=== PATIENT | female | born 1950 | race Caucasian/White ===

== ENCOUNTER 2017-09-06 03:07 | Inpatient (IN) ==
[2017-09-06] MEDS ORDERED: methylPREDNISolone 125 MG/2 ML VIAL IVP ONE (03:16)
[2017-09-06] MEDS ORDERED: Ipratropium/Albuterol Neb 3 ML IH ONE (03:16)
--- NOTE | 2017-09-06 03:30 | Emergency Department Note ---
Disposition Clinical Impression: COPD exacerbation Disposition: Admitted As Inpatient Condition: Good SOB HPI - General Chief Complaint: ED Shortness of Breath/Dyspnea Stated Complaint: KARISHMA Time Seen by Provider: 09/06/17 03:16 Source: patient, EMS Mode of arrival: EMS Limitations: no limitations Nursing Notes Reviewed: Yes Vital Signs Reviewed: Yes - History of Present Illness 67-year-old female history of oxygen dependent COPD, history of PE with filter placement who presents to the ER with a chief complaint of shortness of breath. Patient states that yesterday evening she was having increased urinary frequency and diarrhea. She states during the night she started developing shortness of breath. Reports clear sputum production. No fevers. No chest pain. States that she gets pneumonia easily. She did have an increased oxygen requirement from 2.5 -3 L. She reports that she was 88% there. Squad arrived gave her a breathing treatment in route and she was 99%. She denies a prior history of intubation. No other complaints. Pt Subjective Complaint: shortness of breath, cough Onset (ago): hour(s) Context: recent illness Severity: moderate Consistency/Duration: constant Improves with: bronchodilators Worsens with: nothing Known history of: COPD Associated symptoms: Reports: cough, sputum production. Denies: chest pain, fever Treatment prior to arrival: oxygen, bronchodilator Cough present: Yes Cough Description: Involuntary Cough Frequency: Intermittent Sputum production: Yes Sputum Amount: Small Sputum Color: Clear - Related Data Home oxygen amount: 2 liters Home Medications Medication Instructions Recorded Confirmed Albuterol Sulfate [Albuterol 2 puff IH Q4HR PRN 07/23/15 08/05/16 Inhaler] Docusate [Colace] 200 mg PO BID 07/23/15 08/05/16 GuaiFENesin ER [Mucinex] 1,200 mg PO BID 07/23/15 08/05/16 Metoprolol [Lopressor] 12.5 mg PO BID 07/23/15 08/05/16 diazePAM [Valium] 5 mg PO BID 07/23/15 08/05/16 Beclomethasone Diprop 80mcg [QVAR 2 puff IH BID PRN 12/07/15 08/05/16 80 mcg] FentaNYL PATCH [Duragesic] 75 mcg TD Q72H 12/07/15 08/05/16 Ipratropium/Albuterol Neb [Duoneb] 3 ml IH Q6HR PRN 12/07/15 08/05/16 Ondansetron HCl [Zofran] 4 mg PO TID 12/07/15 08/05/16 Oxygen 2 - 3 l NS AD MDD 24 hours a day 08/05/16 08/05/16 Previous Rx's Medication Instructions Recorded Esomeprazole Magnesium [Nexium] 40 mg PO BID #60 suspdr.pkt 12/14/15 levoFLOXacin [Levaquin] 750 mg PO DAILY #10 tablet 08/07/16 predniSONE [PredniSONE] 60 mg PO AD 12 Days tablet 08/07/16 Allergies Allergy/AdvReac Type Severity Reaction Status Date / Time aspirin Allergy Hives Verified 08/05/16 16:10 cefpodoxime [From Vantin] Allergy Hives Verified 08/05/16 16:10 Cephalosporins Allergy Hives Verified 08/05/16 16:10 ciprofloxacin [From Cipro] Allergy Hives Verified 08/05/16 16:10 hydrocodone Allergy Hives Verified 08/05/16 16:10 moxifloxacin Allergy Hives Verified 08/05/16 16:10 propoxyphene Allergy Hives Verified 08/05/16 16:10 sodium bicarbonate Allergy Hives Verified 08/05/16 16:10 Sulfa (Sulfonamide Allergy Hives Verified 08/05/16 16:10 Antibiotics) tramadol Allergy Hives Verified 08/05/16 16:10 beta-lactam Allergy Hives Uncoded 08/05/16 16:11 cetpodoxime Allergy Hives Uncoded 08/05/16 16:11 multivitamins Allergy Hives Uncoded 08/05/16 16:11 All systems ED: reviewed and negative except as stated. Constitutional: Denies: fever, chills Cardiovascular: Denies: chest pain Respiratory: Reports: cough, dyspnea, sputum production Gastrointestinal: Reports: diarrhea. Denies: abdominal pain, nausea, vomiting Genitourinary: Denies: dysuria, hematuria Past Medical History - Past Medical History Attestation: Yes The following information was validated with the patient. Source: patient Medical history: Reports: asthma, CHF, COPD, coronary artery disease, GERD, glaucoma, other Surgical history: Reports: appendectomy, other Psychiatric history: Reports: anxiety, PTSD - Social History Smoking Status: Former smoker Smokeless Tobacco Status: No Alcohol use: Reports: none Drug use: Reports: none Physical Exam - General Limitations: no limitations General appearance: alert, anxious - Head Head exam: atraumatic, normocephalic, normal inspection - Eye Eye exam: Present: normal appearance, EOMI - ENT ENT exam: normal exam - Neck Neck exam: Present: normal inspection, full ROM - Chest Chest inspection: Present: normal inspection, symmetric chest wall rise - Respiratory Respiratory exam: Present: wheezes (Diffuse end expiratory wheezing on exam.), prolonged expiratory phase. Absent: respiratory distress, stridor - Cardiovascular Cardiovascular exam: Present: normal rhythm, tachycardia, normal heart sounds - Abdominal Exam Abdominal exam: Present: soft, Non-Tender. Absent: tenderness, distention, rigidity - Extremities Exam Extremities exam: Present: normal inspection, full ROM - Expanded Upper Extremity Exam Shoulder exam: Present: normal inspection, full ROM Arm exam: Present: normal inspection, full ROM Elbow exam: Present: normal inspection, full ROM Forearm/Wrist exam: Present: normal inspection, full ROM Hand exam: Present: normal inspection, full ROM Vascular exam: Normal: radial pulse - Expanded Lower Extremity Exam Hip/Pelvis exam: Present: normal inspection, full ROM Upper leg exam: Present: normal inspection, full ROM Knee exam: Present: normal inspection, full ROM Lower leg exam: Present: normal inspection, full ROM Ankle exam: Present: normal inspection, full ROM Foot/toe exam: Present: normal inspection, full ROM Neurovascular/Tendon exam: Absent: motor deficit, sensory deficit - Neurological Exam Neurological exam: Present: alert, other (GCS 15. Nonfocal neurologic exam.) - Psychiatric Psychiatric exam: Present: anxious - Skin Skin exam: Present: warm, dry, intact, normal color Course Course Narrative: Patient seen and examined. We will obtain an EKG, chest x-ray as well as labs including troponin. We will give her 2 additional DuoNeb treatments as well as Solu-Medrol. - Reevaluation(s) Reevaluation #1: Still wheezing after DuoNeb treatments. She is 94% currently. Patient agreeable with being admitted. Vital Signs Temperature 99.4 F 09/06/17 03:08 Pulse Rate 118 09/06/17 03:08 Respiratory Rate 18 09/06/17 03:08 Blood Pressure 148/88 09/06/17 03:08 O2 Sat by Pulse Oximetry 99 09/06/17 03:08 Temperature 99.4 F 09/06/17 03:08 Pulse Rate 118 09/06/17 03:08 Respiratory Rate 18 09/06/17 03:28 Blood Pressure 148/88 09/06/17 03:08 O2 Sat by Pulse Oximetry 94 09/06/17 03:28 Oxygen Delivery Oxygen Delivery Aerosol Mask Shortness of Breath/Dyspnea - MDM Narrative Medical decision making narrative: 67-year-old female history of oxygen-dependent COPD presents to the ER due to shortness of breath and cough. Started last night. History of PE but has a filter placed. She was 88% on her usual O2 requirement. EKG here demonstrates sinus tachycardia. Chest x-ray shows emphysematous changes. Patient given DuoNeb treatments as well as IV Solu-Medrol. Patient admitted to the hospitalist service for COPD exacerbation. - Lab Data Lab results reviewed: Yes I reviewed the patient's lab results. Result diagrams: 09/06/17 03:30 09/06/17 03:30 Lab Results 09/06/17 09/06/17 09/06/17 Range/Units 03:30 03:30 03:30 WBC 8.7 (4.3-11.1) K/mcL RBC 4.05 (3.82-4.97) M/mcL Hgb 13.0 (11.5-15.4) g/dL Hct 40.1 (35.3-44.9) % MCV 99.0 (83.0-100.0) fL MCH 32.1 (28.0-33.3) pg MCHC 32.4 (31.6-35.5) g/dL RDW 12.7 (11.5-14.5) % Plt Count 299 (140-400) K/mcL MPV 10.7 (9.4-12.4) fL Immature Gran % 0.3 (0-4) % Seg Neutrophils % 68.0 % Lymphocytes % 22.0 % Monocytes % 7.9 % Eosinophils % 1.3 % Basophils % 0.5 % Neutrophils # 5.9 (1.6-8.9) K/mcL Lymphocytes # 1.9 (0.6-4.6) K/mcL Monocytes # 0.7 (0.0-1.3) K/mcL Eosinophils # 0.1 (0.0-0.6) K/mcL Basophils # 0.0 (0.0-0.2) K/mcL Sodium 142 (136-145) mEq/L Potassium 3.9 (3.5-4.5) mEq/L Chloride 101 (98-109) mEq/L Carbon Dioxide 31 H (19-29) mEq/L BUN 11 (7-20) mg/dL Creatinine 0.69 (0.57-1.11) mg/dL Est GFR ( Amer) > 60 (> 60) Est GFR (Non-Af Amer) > 60 (> 60) BUN/Creatinine Ratio 16 (6-26) Glucose 122 H (70-99) mg/dL Calculated Osmolality 295 (280-300) Calcium 9.9 (8.6-10.8) mg/dL Troponin I 0.00 (0-0.03) ng/mL B-Natriuretic Peptide (0-100) pg/mL 09/06/17 Range/Units 03:30 WBC (4.3-11.1) K/mcL RBC (3.82-4.97) M/mcL Hgb (11.5-15.4) g/dL Hct (35.3-44.9) % MCV (83.0-100.0) fL MCH (28.0-33.3) pg MCHC (31.6-35.5) g/dL RDW (11.5-14.5) % Plt Count (140-400) K/mcL MPV (9.4-12.4) fL Immature Gran % (0-4) % Seg Neutrophils % % Lymphocytes % % Monocytes % % Eosinophils % % Basophils % % Neutrophils # (1.6-8.9) K/mcL Lymphocytes # (0.6-4.6) K/mcL Monocytes # (0.0-1.3) K/mcL Eosinophils # (0.0-0.6) K/mcL Basophils # (0.0-0.2) K/mcL Sodium (136-145) mEq/L Potassium (3.5-4.5) mEq/L Chloride (98-109) mEq/L Carbon Dioxide (19-29) mEq/L BUN (7-20) mg/dL Creatinine (0.57-1.11) mg/dL Est GFR ( Amer) (> 60) Est GFR (Non-Af Amer) (> 60) BUN/Creatinine Ratio (6-26) Glucose (70-99) mg/dL Calculated Osmolality (280-300) Calcium (8.6-10.8) mg/dL Troponin I (0-0.03) ng/mL B-Natriuretic Peptide 69 (0-100) pg/mL - Radiology Data Radiology results reviewed: Yes I reviewed the patient's radiology results. Chest X-Ray 09/06/17 03:16 IMPRESSION: 1. Emphysema. No superimposed acute pulmonary finding to account for patient's shortness of breath. D/ / Fili Bustos MD / Fili Bustos MD Interpreting Provider: Fili Bustos MD - EKG Data EKG attestation: Yes I reviewed and interpreted this EKG. EKG results narrative: EKG demonstrated sinus tachycardia with a rate of 122. Normal axis. Normal intervals. Motion artifact in all leads. Normal R-wave progression. No gross ST elevations or depressions. No acute ischemic findings. No significant changes from previous EKG dated 08/05/16. S.B.AMilli. - S.Jose.AFilemon Situation: Demographics, MOA Background: Presenting Complaint, Relevant PMH, Meds, & Allergies Assessment: Vital Signs, Course and respsone to treatment, Exam Concerns, Patient/Family Expectation, Pertinant Lab Results, Outstanding Labs Recommendation: Barrier(s) to disposition, Recommendation based on pending studies, treatments, or consults S.B.A.RAcosta Report Given to: Dr. Cristian Jefferson Repor Time: 04:35 Attestation Statement - Attestation Attestation: I, Howard Monroe MD, personally evaluated this patient and discussed their management with the resident physician. I reviewed the resident's note and agree with the documented findings, medical decision making, and plan of care. 67-year-old female presents to the emergency department by EMS with a complaint of increased shortness of breath that started about 6 PM this evening and got progressively worse. She took a nebulizer treatment at home around 10 PM with no improvement. Patient has a history of COPD and uses oxygen continuously at home by nasal cannula. There has been some cough which is mostly nonproductive but occasional clear sputum. No chest pain. No fever. On examination patient is a well-developed thin elderly female in no acute distress. She is alert and oriented 3. There is no cyanosis or diaphoresis. Breath sounds are decreased bilaterally with diffuse bilateral expiratory wheezes. Heart tachycardic and regular. Abdomen soft and nontender with normal bowel sounds. No pedal edema. EKG shows sinus tachycardia. Chest x-ray shows COPD with no acute abnormality. Labs reviewed. The hospitalist, Dr. Foster, was consulted and accepted admission of the patient.
[2017-09-06 03:38] LABS: Basophils % 0.5 %; Eosinophils # 0.1 K/mcL (0.0-0.6); Eosinophils % 1.3 %; Hematocrit 40.1 % (35.3-44.9); Immature Granulocytes % 0.3 % (0-4); Lymphocytes # 1.9 K/mcL (0.6-4.6); Mean Corpuscular HGB Conc 32.4 g/dL (31.6-35.5); Mean Corpuscular Hemoglobin 32.1 pg (28.0-33.3); Mean Platelet Volume 10.7 fL (9.4-12.4); Monocytes # 0.7 K/mcL (0.0-1.3); Monocytes % 7.9 %; Neutrophils # 5.9 K/mcL (1.6-8.9); Platelet Count 299 K/mcL (140-400); Red Blood Count 4.05 M/mcL (3.82-4.97); Red Cell Distribution Width 12.7 % (11.5-14.5)
[2017-09-06 03:51] LABS: BUN/Creatinine Ratio 16 (6-26); Blood Urea Nitrogen 11 mg/dL (7-20); Calcium 9.9 mg/dL (8.6-10.8); Carbon Dioxide 31 mEq/L (19-29); Chloride 101 mEq/L (98-109); Glucose 122 mg/dL (70-99); Osmolality,Calculated 295 (280-300); Potassium 3.9 mEq/L (3.5-4.5); Sodium 142 mEq/L (136-145); eGFR For African Americans > 60 (> 60); eGFR For Non-African Americans > 60 (> 60)
[2017-09-06] MEDS ORDERED: Naloxone 0.4 MG/ML INJ IVP PRN (09:14)
--- NOTE | 2017-09-06 09:14 | Internal Med History&Physical ---
Date of Encounter: 09/07/17 Time of Encounter: 09:13 Assessment and Plan (1) COPD exacerbation Current visit: Yes Status: Acute 67/female Known to have a COPD. She is on home oxygen 2 L/m. Noted that in last 1 week has cough is getting worse along with the worsening oxygen demand. Yesterday patient had difficulty in transfer from bed to bathroom. Her oxygen saturation was in low 80s. X-ray chest/EKG was reviewed by myself. Plan: -Admitted as a inpatient. Reason for inpatient hospitalization: This patient needs intravenous antibiotics , steroids and persistent/continuous monitoring of her respiratory status. -Blood culture 2. -Intravenous methylprednisolone 40 mg every 8 hours. -Intravenous levofloxacin. Even though patient has allergy to ciprofloxacin, it is hives. Patient will get benefit from levofloxacin. -Bronchodilators, every 4 hours/when necessary. -We will resume home medications. (2) Cough Current visit: No Status: Acute Patient has a persistent cough and it is likely secondary to COPD exacerbation. We will treat the COPD exacerbation very actively/aggressively. We will continue conservative management for cough. (3) HTN (hypertension) Current visit: No Status: Chronic Hypertension is stable. We will continue home medications. At this point we will continue to monitor hypertension very closely. Qualifiers: Hypertension type: essential hypertension Qualified Code(s): I10 - Essential (primary) hypertension (4) CAD (coronary artery disease) Current visit: No Status: Chronic Patient has a stable coronary artery disease. Patient denies any chest pain at this point. Qualifiers: Coronary Disease-Associated Artery/Lesion type: [place] artery [place] vs. transplanted heart: [place] heart Associated angina: without angina Qualified Code(s): I25.10 - Atherosclerotic heart disease of [place] coronary artery without angina pectoris (5) DVT prophylaxis Current visit: No Status: Acute heparin Medical decision making: This patient has a moderate to severe risk of worsening in spite of being on appropriate antibiotics due to her underlying nature of the complex multiple comorbidities. Internal Medicine - H&P: HPI Chief complaint: SOB Admitted From: Emergency Dept History of present illness: Brief past medical history:CHF, COPD, coronary artery disease, GERD, glaucoma. History of present illness: Patient has worsening shortness of breath for the past 2-3 days. Noted that her cough was getting worse along with her shortness of breath. Patient started having mucopurulent expectoration along with worsening cough upon minimal exertion.Patient has a home oxygen for 2 L. Patient noted that on minimal exertion her oxygen saturation was dropping to low 80s. Even from bed to bathroom to transfer/transport was difficult. Patient herself tried multiple times to increase her oxygen from 2 L/m to 3-4 L/ m but in spite of that her saturation was in mid 80s or low 80s. Last night she was having episode of short of breath and low oxygen saturation and that was the reason she called squad. Course in the emergency room: Patient was evaluated in the emergency room. X- ray chest was done. IV steroids were given. Reason for hospitalization: This COPD exacerbation which requires intravenous antibiotics/steroids. Patient needs to be qualified for worsening oxygen demand. Family history: Noncontributory Past Med Surg Social Fam HX - Past Medical History Medical history: asthma, CHF, COPD, coronary artery disease, GERD, glaucoma, other Psychiatric history: anxiety, PTSD - Past Surgical History Surgical History: appendectomy - Social History Smoking Status: Former smoker Smokeless Tobacco Status: No Alcohol use: none Drug use: none - Family History Father Living Status: Hx Family Cardiac Disorders: Yes Hx Family Respiratory Disorders: Yes (lung cancer) Hx Family Cancer: Yes Hx Family GI Disorders: No Hx Family Endocrine Disorder: No Hx Family Neuromuscular Disorders: No Hx Family Neurologic Disorders: No Hx Family HEENT Disorders: No Hx Family Autoimmune Disorders: No Mother Living Status: Hx Family Cardiac Disorders: No Hx Family Respiratory Disorders: Yes (COPD) Hx Family Cancer: No Hx Family GI Disorders: No Hx Family Endocrine Disorder: Yes Hx Family Neuromuscular Disorders: No Hx Family Neurologic Disorders: No Hx Family HEENT Disorders: No Hx Family Autoimmune Disorders: No Sister Living Status: Hx Family Cardiac Disorders: Yes Hx Family Respiratory Disorders: Yes Hx Family Cancer: Yes Hx Family GI Disorders: No Hx Family Endocrine Disorder: No Hx Family Neuromuscular Disorders: No Hx Family Neurologic Disorders: No Hx Family HEENT Disorders: No Hx Family Autoimmune Disorders: No Brother Living Status: Hx Family Cardiac Disorders: Yes Hx Family Respiratory Disorders: No Hx Family Cancer: Yes Hx Family GI Disorders: No Hx Family Endocrine Disorder: No Hx Family Neuromuscular Disorders: No Hx Family Neurologic Disorders: No Hx Family HEENT Disorders: No Hx Family Autoimmune Disorders: No Internal Medicine - H&P: Meds Albuterol Sulfate [Albuterol Inhaler] 2 puff IH Q4HR PRN 07/23/15 [History] Docusate [Colace] 100 mg PO TID 07/23/15 [History] diazePAM [Valium] 2.5 mg PO DAILY 07/23/15 [History] Beclomethasone Diprop 80mcg [QVAR 80 mcg] 2 puff IH BID PRN 12/07/15 [History] FentaNYL PATCH [Duragesic] 75 mcg TD Q72H 12/07/15 [History] Ipratropium/Albuterol Neb [Duoneb] 3 ml IH Q4H PRN 12/07/15 [History] Oxygen 2 - 3 l NS AD MDD 24 hours a day 08/05/16 [History] Omeprazole [PriLOSEC] 40 mg PO DAILY 09/06/17 [History] 3 Allergy/AdvReac Type Severity Reaction Status Date / Time aspirin Allergy Hives Verified 08/05/16 16:10 cefpodoxime [From Vantin] Allergy Hives Verified 08/05/16 16:10 Cephalosporins Allergy Hives Verified 08/05/16 16:10 ciprofloxacin [From Cipro] Allergy Hives Verified 08/05/16 16:10 hydrocodone Allergy Hives Verified 08/05/16 16:10 moxifloxacin Allergy Hives Verified 08/05/16 16:10 propoxyphene Allergy Hives Verified 08/05/16 16:10 sodium bicarbonate Allergy Hives Verified 08/05/16 16:10 Sulfa (Sulfonamide Allergy Hives Verified 08/05/16 16:10 Antibiotics) tramadol Allergy Hives Verified 08/05/16 16:10 beta-lactam Allergy Hives Uncoded 08/05/16 16:11 cetpodoxime Allergy Hives Uncoded 08/05/16 16:11 multivitamins Allergy Hives Uncoded 08/05/16 16:11 All Systems PM: A 10-system review of systems was performed and is negative for pertinent findings except as documented above in the HPI. - Constitutional Constitutional: no chills, no fever(s), no night sweats - EENT Eyes: no change in vision, no discharge, no pain, no photophobia Ears: no ear discharge, no ear pain, no tinnitus Nose, mouth and throat: no dysphagia, no nasal discharge, no neck pain, no sore throat - Cardiovascular Cardiovascular ROS IM: no chest pain, no diaphoresis, no dyspnea, no lightheadedness, no palpitations, no syncope - Respiratory Respiratory: cough, dyspnea, wheezing, change in phlegm color, pain with cough, no excessive phlegm production - Gastrointestinal Gastrointestinal: no abdominal pain, no diarrhea, no hematemesis, no hematochezia, no melena, no nausea, no vomiting - Genitourinary Genitourinary: no change in urinary stream, no dysuria, no flank pain, no hematuria - Musculoskeletal Musculoskeletal ROS IM: no numbness, no tingling - Integumentary Integumentary IM: no rash, no unusual bruising - Neurological Neurological ROS: no confusion, no convulsions, no focal weakness, no numbness, no tingling, no tremor(s) - Hematologic/Lymphatic Hematologic/Lymphatic: no easy bruising - Constitutional Vitals: Temp Pulse Resp BP Pulse Ox 98.1 F 116 19 134/88 95 09/06/17 06:04 09/06/17 06:04 09/06/17 06:04 09/06/17 06:04 09/06/17 06:04 General appearance: Present: A&O X 3, pleasant, no acute distress, answers questions appropriately - Head Head exam: Present: atraumatic, normocephalic - Eye Eye exam: Present: PERRL, conjuntiva pink, sclera anicteric Pupils: Present: PERRL - Neck Neck exam general surgery: Present: supple, trachea midline. Absent: lymphadenopathy - Respiratory Respiratory exam: Present: CTAB. Absent: accessory muscle use, rales, rhonchi, wheezes - Cardiovascular Cardiovascular exam: Present: RRR, +S1, +S2. Absent: diastolic murmur, gallop, rubs, systolic murmur - GI/Abdominal GI/Abdominal exam: Present: normal bowel sounds, soft, no peritoneal signs. Absent: distended, tenderness - Extremities Exam Extremities exam: Present: warm, radial pulses palpable and symmetrical. Absent : calf tenderness, cyanotic, pedal edema - Neurological Exam Neurological exam: Present: CN II-XII intact, oriented X3, no focal deficits. Absent: pronater drift, facial droop, speech deficit - Skin Skin exam: Present: dry, intact Internal Med - H&P Results - Labs CBC & Chem 7: 09/07/17 00:36 09/07/17 00:36
[2017-09-06] MEDS ORDERED: *HR* FentaNYL PATCH 75 MCG PATCH TD SCH (09:30)
[2017-09-06] MEDS: Ipratropium/Albuterol Neb 3 ML IH PRN ×3 (10:06→21:39)
[2017-09-06] MEDS: 0.9 % Sodium Chloride 1,000 ML IVC SCH (12:36)
[2017-09-06] MEDS: Levofloxacin 750 MG/150 ML 750 MG/150 ML BAG IVPB SCH (12:39)
[2017-09-06] MEDS: MethylPREDNISolone 40 MG/ML VIAL IVP SCH ×2 (17:08→23:46)
[2017-09-06] MEDS: *HR* Heparin 5,000 UNIT/ML VIAL SQ SCH (17:09)
--- NOTE | 2017-09-06 19:10 | Electrocardiograph Report ---
[address] [address] Test Date: 2017-09-06 Pat Name: Ashley Bautista Department: 103 Room: 2NE17 Gender: F Mental Health Worker: : 1950 Requested By: Kashif Huerta Order Number: [id number] Reading MD: Jenna Salazar Measurements Intervals [place] Rate: 122 P: 75 SC: 177 QRS: -30 QRSD: 73 T: 83 QT: 287 QTc: 360 Interpretive Statements SINUS TACHYCARDIA BORDERLINE LEFT AXIS DEVIATION [QRS AXIS < -20] ABNORMAL RHYTHM ECG SIGNIFICANT BASELINE ARTIFACT Electronically Signed On 09-06-2017 19:08:35 EDT by Jenna Salazar
[2017-09-06] MEDS ORDERED: Triamcinolone Acet 0.1% CRM 80 GM Tube TP PRN (20:19)
[2017-09-06] MEDS ORDERED: Triamcinolone Acet 0.1% CRM 15 GM TUBE TP PRN (20:45)
--- NOTE | 2017-09-06 21:27 | Event Note ---
Date of Encounter: 09/06/17 Time of Encounter: 21:25 EVENT NOTE Called to see pt who was dyspneic, tachypneic, tachycardic, anxious, c/o air hunger with intercostal and subcostal recessions. Will do BiPAP for respiratory distress to reduce the work of breathing. Dw pt and nurse at bedside.
[2017-09-06] MEDS: *HR* LORazepam 2 MG/ML VIAL IVP PRN (21:32)
[2017-09-06] MEDS: *HR* FentaNYL PATCH 75 MCG PATCH TD SCH (23:45)
[2017-09-07 00:55] LABS: Basophils % 0.2 %; Hematocrit 37.9 % (35.3-44.9); Hemoglobin 12.2 g/dL (11.5-15.4); Immature Granulocytes % 0.5 % (0-4); Immature Platelets 7.2 % (1.1-6.1); Lymphocytes # 0.7 K/mcL (0.6-4.6); Lymphocytes % 10.3 %; Mean Corpuscular HGB Conc 32.2 g/dL (31.6-35.5); Mean Corpuscular Hemoglobin 31.9 pg (28.0-33.3); Mean Platelet Volume 11.2 fL (9.4-12.4); Monocytes # 0.2 K/mcL (0.0-1.3); Monocytes % 2.5 %; Neutrophils # 5.5 K/mcL (1.6-8.9); Platelet Count 292 K/mcL (140-400); Red Blood Count 3.83 M/mcL (3.82-4.97); Red Cell Distribution Width 13.1 % (11.5-14.5); Segmented Neutrophils % 86.5 %
[2017-09-07 01:13] LABS: Alanine Aminotransferase 13 Units/L (0-55); Albumin 3.4 g/dL (3.5-5.0); Albumin/Globulin Ratio 0.9 (1.1-2.2); Alkaline Phosphatase 71 Units/L (38-126); Aspartate Amino Transferase 23 Units/L (5-34); BUN/Creatinine Ratio 21 (6-26); Blood Urea Nitrogen 15 mg/dL (7-20); Calcium 9.4 mg/dL (8.6-10.8); Carbon Dioxide 28 mEq/L (19-29); Chloride 106 mEq/L (98-109); Chol/HDL Ratio 3.3 (0-4.9); Cholesterol 236 mg/dL (< 200); Globulin 3.7 g/dL (2.4-3.5); Glucose 114 mg/dL (70-99); HDL Cholesterol 71 mg/dL (40-59); LDL Cholesterol,Calculated 150 mg/dL (0-99); Magnesium 1.7 mg/dL (1.6-2.6); Osmolality,Calculated 300 (280-300); Phosphorous 2.6 mg/dL (2.3-4.7); Potassium 4.2 mEq/L (3.5-4.5); Sodium 144 mEq/L (136-145); Total Protein 7.1 g/dL (6.0-8.3); Triglycerides 76 mg/dL (< 150); eGFR For African Americans > 60 (> 60); eGFR For Non-African Americans > 60 (> 60)
[2017-09-07 01:20] LABS: Bilirubin,Total < 0.2 mg/dL (0.2-1.2)
[2017-09-07] MEDS: *HR* Heparin 5,000 UNIT/ML VIAL SQ SCH ×2 (06:24→17:23)
[2017-09-07] MEDS: Ipratropium/Albuterol Neb 3 ML IH PRN (06:38)
[2017-09-07] MEDS: Ondansetron 4 MG/2 ML VIAL IVP PRN (06:51)
[2017-09-07] MEDS: Levofloxacin 750 MG/150 ML 750 MG/150 ML BAG IVPB SCH (09:02)
[2017-09-07] MEDS: MethylPREDNISolone 40 MG/ML VIAL IVP SCH ×2 (09:03→17:22)
[2017-09-07] MEDS: Ipratropium/Albuterol Neb 3 ML IH SCH ×3 (10:54→23:13)
--- NOTE | 2017-09-07 11:01 | Internal Med Progress Note ---
Date of Encounter: 09/07/17 Time of Encounter: 10:58 - Assessment and plan (1) COPD exacerbation Current Visit: Yes Status: Acute Assessment and plan: Admitted with COPD exacerbation. Noted last evening patient had a difficulty in breathing. BiPAP was initiated. Patient tolerated BiPAP well. This morning patient is much comfortable as compared to last night. Plan: Intravenous levofloxacin 750 mg every 24 hours: Daily 2 Intravenous methylprednisone 40 mg every 8 hours: Day 2 Bronchodilators: DuoNeb Will continue present treatment for now. We will observe her very closely. (2) Cough Current Visit: No Status: Acute Assessment and plan: Patient's cough is much better as compared to yesterday. We will continue present treatment. (3) HTN (hypertension) Current Visit: No Status: Chronic Assessment and plan: Very well controlled blood pressure. Qualifiers: Hypertension type: essential hypertension Qualified Code(s): I10 - Essential (primary) hypertension (4) CAD (coronary artery disease) Current Visit: No Status: Chronic Assessment and plan: Stable coronary artery disease. Patient denies chest pain Qualifiers: Coronary Disease-Associated Artery/Lesion type: [place] artery [place] vs. transplanted heart: [place] heart Associated angina: without angina Qualified Code(s): I25.10 - Atherosclerotic heart disease of [place] coronary artery without angina pectoris (5) DVT prophylaxis Current Visit: No Status: Acute Assessment and plan: Heparin Medical decision making: This patient has a moderate to severe risk of worsening in spite of being on appropriate medication due to the underlying multiple comorbid conditions - Subjective Interval history: Patient seen and examined. Chart reviewed. Patient is comfortably lying in the bed. Patient is occasionally tachypneic but breathing comfortably. Events from the past night noted. Patient denies chest pain, shortness of breath, nausea, vomiting, dizziness or diarrhea. - Constitutional Vitals: Temp Pulse Resp BP Pulse Ox 98.2 F 115 18 136/78 99 09/07/17 07:54 09/07/17 07:54 09/07/17 07:54 09/07/17 07:54 09/07/17 07:54 General appearance: Present: A&O X 3, pleasant, no acute distress, answers questions appropriately - Head Head exam: Present: atraumatic, normocephalic - Eye Eye exam: Present: PERRL, conjuntiva pink, sclera anicteric Pupils: Present: PERRL - Neck Neck exam general surgery: Present: supple, trachea midline. Absent: lymphadenopathy - Respiratory Respiratory exam: Present: CTAB. Absent: accessory muscle use, rales, rhonchi, wheezes - Cardiovascular Cardiovascular exam: Present: RRR, +S1, +S2. Absent: diastolic murmur, gallop, rubs, systolic murmur - GI/Abdominal GI/Abdominal exam: Present: normal bowel sounds, soft, no peritoneal signs. Absent: distended, tenderness - Extremities Exam Extremities exam: Present: warm, radial pulses palpable and symmetrical. Absent : calf tenderness, cyanotic, pedal edema - Neurological Exam Neurological exam: Present: CN II-XII intact, oriented X3, no focal deficits. Absent: pronater drift, facial droop, speech deficit - Skin Skin exam: Present: dry, intact Internal Medicine: Result - Labs CBC & Chem 7: 09/07/17 00:36 09/07/17 00:36 Labs: Short CBC 09/07/17 Range/Units 00:36 WBC 6.3 (4.3-11.1) K/mcL Hgb 12.2 (11.5-15.4) g/dL Hct 37.9 (35.3-44.9) % Plt Count 292 (140-400) K/mcL Neutrophils # 5.5 (1.6-8.9) K/mcL BMP 09/07/17 00:36 Sodium 144 Potassium 4.2 Chloride 106 Carbon Dioxide 28 BUN 15 Creatinine 0.71 Glucose 114 H Calcium 9.4 Cardiac Enzymes 09/06/17 09/07/17 Range/Units 18:00 00:36 Troponin I 0.00 0.00 (0-0.03) ng/mL Liver Function 09/07/17 Range/Units 00:36 Total Bilirubin < 0.2 L (0.2-1.2) mg/dL AST 23 (5-34) Units/L ALT 13 (0-55) Units/L Alkaline Phosphatase 71 (38-126) Units/L Albumin 3.4 L (3.5-5.0) g/dL Consult Discharge Plan - Plan Referrals: Tate Franks MD [Primary Care Provider] -
[2017-09-07] MEDS: Albuterol 2.5 MG/3 ML NEBULIZER IH PRN (20:11)
[2017-09-07] MEDS: 0.9 % Sodium Chloride 1,000 ML IVC SCH (21:30)
[2017-09-07] MEDS: *HR* LORazepam 2 MG/ML VIAL IVP PRN (21:31)
[2017-09-08] MEDS: MethylPREDNISolone 40 MG/ML VIAL IVP SCH ×3 (00:54→17:22)
[2017-09-08] MEDS: Ipratropium/Albuterol Neb 3 ML IH SCH ×5 (04:28→20:25)
[2017-09-08] MEDS: *HR* Heparin 5,000 UNIT/ML VIAL SQ SCH ×2 (05:58→17:21)
[2017-09-08] MEDS: Levofloxacin 750 MG/150 ML 750 MG/150 ML BAG IVPB SCH (11:41)
[2017-09-08] MEDS: *HR* LORazepam 2 MG/ML VIAL IVP PRN (11:42)
--- NOTE | 2017-09-08 11:58 | Internal Med Progress Note ---
Date of Encounter: 09/08/17 Time of Encounter: 11:55 - Assessment and plan (1) COPD exacerbation Current Visit: Yes Status: Acute Assessment and plan: Admitted with COPD exacerbation. Noted last evening patient had a difficulty in breathing. BiPAP was initiated. Patient tolerated BiPAP well. This morning patient is much comfortable as compared to last night. Plan: Intravenous levofloxacin 750 mg every 24 hours: Daily 2 Intravenous methylprednisone 40 mg every 8 hours: Day 2 Bronchodilators: DuoNeb Will continue present treatment for now. We will observe her very closely. 09/08/2017 Hospitalization: Day 3 Admitted for COPD exacerbation. No need of noninvasive ventilation in last 24 hours. Frequency of cough has improved as compared to yesterday. Plan: Continue antibiotics: Levofloxacin: day 3 Continue IV steroids. And to do bronchodilators. Likely home tomorrow. (2) Cough Current Visit: No Status: Acute Assessment and plan: Patient's cough is much better as compared to yesterday. We will continue present treatment. 09/08/2017 Patient claims that her frequency of of cough is getting better as compared to yesterday (3) HTN (hypertension) Current Visit: No Status: Chronic Assessment and plan: Very well controlled blood pressure. Qualifiers: Hypertension type: essential hypertension Qualified Code(s): I10 - Essential (primary) hypertension (4) CAD (coronary artery disease) Current Visit: No Status: Chronic Assessment and plan: Stable coronary artery disease. Patient denies chest pain Qualifiers: Coronary Disease-Associated Artery/Lesion type: [place] artery [place] vs. transplanted heart: [place] heart Associated angina: without angina Qualified Code(s): I25.10 - Atherosclerotic heart disease of [place] coronary artery without angina pectoris (5) DVT prophylaxis Current Visit: No Status: Acute Assessment and plan: Heparin Medical decision making: This patient has a moderate to severe risk of worsening in spite of being on appropriate medication due to the underlying multiple comorbid conditions - Subjective Interval history: Patient seen and examined. Chart reviewed. Patient is comfortably lying in the bed. Patient is occasionally tachypneic but breathing comfortably. Events from the past night noted. Patient denies chest pain, shortness of breath, nausea, vomiting, dizziness or diarrhea. 09/08/2017 Patient seen and examined. Chart reviewed. Patient is comfortably lying in the bed. No events overnight. Patient feels that she is much better as compared to yesterday. Patient has difficulty in ambulating. Patient denies chest pain, nausea, vomiting, abdominal pain or diarrhea. - Constitutional Vitals: Temp Pulse Resp BP Pulse Ox 97.8 F 107 18 137/71 97 09/08/17 11:33 09/08/17 11:33 09/08/17 11:33 09/08/17 11:33 09/08/17 11:33 General appearance: Present: A&O X 3, pleasant, no acute distress, answers questions appropriately - Head Head exam: Present: atraumatic, normocephalic - Eye Eye exam: Present: PERRL, conjuntiva pink, sclera anicteric Pupils: Present: PERRL - Neck Neck exam general surgery: Present: supple, trachea midline. Absent: lymphadenopathy - Respiratory Respiratory exam: Present: CTAB. Absent: accessory muscle use, rales, rhonchi, wheezes - Cardiovascular Cardiovascular exam: Present: RRR, +S1, +S2. Absent: diastolic murmur, gallop, rubs, systolic murmur - GI/Abdominal GI/Abdominal exam: Present: normal bowel sounds, soft, no peritoneal signs. Absent: distended, tenderness - Extremities Exam Extremities exam: Present: warm, radial pulses palpable and symmetrical. Absent : calf tenderness, cyanotic, pedal edema - Neurological Exam Neurological exam: Present: CN II-XII intact, oriented X3, no focal deficits. Absent: pronater drift, facial droop, speech deficit - Skin Skin exam: Present: dry, intact Internal Medicine: Result - Labs CBC & Chem 7: 09/07/17 00:36 09/07/17 00:36 Consult Discharge Plan - Plan Referrals: Tate Franks MD [Primary Care Provider] -
[2017-09-08] MEDS: 0.9 % Sodium Chloride 1,000 ML IVC SCH (12:22)
[2017-09-08] MEDS ORDERED: Beclomethasone 80mcg MDI IH PRN (22:00)
[2017-09-09] MEDS: MethylPREDNISolone 40 MG/ML VIAL IVP SCH ×4 (01:00→23:45)
[2017-09-09] MEDS: *HR* LORazepam 2 MG/ML VIAL IVP PRN ×2 (01:01→11:52)
[2017-09-09] MEDS: 0.9 % Sodium Chloride 1,000 ML IVC SCH ×2 (01:59→13:37)
[2017-09-09] MEDS: Ipratropium/Albuterol Neb 3 ML IH SCH ×7 (04:27→23:21)
[2017-09-09] MEDS: *HR* Heparin 5,000 UNIT/ML VIAL SQ SCH ×2 (05:31→17:20)
[2017-09-09] MEDS: Levofloxacin 750 MG/150 ML 750 MG/150 ML BAG IVPB SCH (08:43)
[2017-09-09] MEDS: diazePAM 5 MG TABLET PO SCH (08:54)
--- NOTE | 2017-09-09 08:58 | Discharge Summary ---
Date of Encounter: 09/09/17 - Discharge Medications Prescriptions: Amoxicillin/Clavulanate [Augmentin] 875 mg PO BIDWM #8 tablet predniSONE [PredniSONE] 40 mg PO DAILY #8 tablet Home Medications: Albuterol Sulfate [Albuterol Inhaler] 2 puff IH Q4HR PRN 07/23/15 [History] Docusate [Colace] 100 mg PO TID 07/23/15 [History] Beclomethasone Diprop 80mcg [QVAR 80 mcg] 2 puff IH BID PRN 12/07/15 [History] FentaNYL PATCH [Duragesic] 75 mcg TD Q72H 12/07/15 [History] Ipratropium/Albuterol Neb [Duoneb] 3 ml IH Q4H PRN 12/07/15 [History] Oxygen 2 - 3 l NS AD MDD 24 hours a day 08/05/16 [History] Omeprazole [PriLOSEC] 40 mg PO DAILY 09/06/17 [History] Albuterol Neb [Proventil Neb] 2.5 mg IH Q2H PRN inhsol 09/09/17 [Rx] Amoxicillin/Clavulanate [Augmentin] 875 mg PO BIDWM #8 tablet 09/09/17 [Rx] predniSONE [PredniSONE] 40 mg PO DAILY #8 tablet 09/09/17 [Rx] Allergies/Adverse Reactions: 3 Allergy/AdvReac Type Severity Reaction Status Date / Time aspirin Allergy Hives Verified 08/05/16 16:10 cefpodoxime [From Vantin] Allergy Hives Verified 08/05/16 16:10 Cephalosporins Allergy Hives Verified 08/05/16 16:10 ciprofloxacin [From Cipro] Allergy Hives Verified 08/05/16 16:10 hydrocodone Allergy Hives Verified 08/05/16 16:10 moxifloxacin Allergy Hives Verified 08/05/16 16:10 propoxyphene Allergy Hives Verified 08/05/16 16:10 sodium bicarbonate Allergy Hives Verified 08/05/16 16:10 Sulfa (Sulfonamide Allergy Hives Verified 08/05/16 16:10 Antibiotics) tramadol Allergy Hives Verified 08/05/16 16:10 beta-lactam Allergy Hives Uncoded 08/05/16 16:11 cetpodoxime Allergy Hives Uncoded 08/05/16 16:11 multivitamins Allergy Hives Uncoded 08/05/16 16:11 Date of admission: 09/06/17 16:20 Primary care physician: Tate Franks MD Consults: 09/08/17 17:45 Consult to Internet Site Designer [CONS] Routine Reason for SW Consult: patient is asking for home health, bed bound, very anxious and taking narcotics at home, home oxygen 2liters via [employer] also has passport services at home. Discharging clinician: Bryn Gomez Anticipated date of discharge: 09/09/17 - Patient Status Condition: Good - Discharge Instructions Follow Up With: Tate Franks MD [Primary Care Provider] - Hospital course: Ms. Bautista is a 67 year old female - Time Spent with Patient Total time spent providing and/or coordinating discharge services: - Constitutional Vitals: Temp Pulse Resp BP Pulse Ox 98.1 F 101 21 169/90 94 09/09/17 06:32 09/09/17 06:32 09/09/17 08:06 09/09/17 06:32 09/09/17 08:06 General appearance: Present: A&O X 3, pleasant, no acute distress, answers questions appropriately
[2017-09-09] MEDS ORDERED: Azithromycin 500 MG in D5% in Water 250 ML IVPB SCH (11:00)
--- NOTE | 2017-09-09 17:14 | Internal Med Progress Note ---
<Frederick Diego - Last Filed: 09/09/17 17:12> Date of Encounter: 09/09/17 Time of Encounter: 08:50 - Assessment and plan (1) COPD exacerbation Current Visit: No Status: Acute Assessment and plan: Hospitalization: Day 4 Admitted for COPD exacerbation. Frequency of cough has worsened as compared to yesterday. Plan: Continue antibiotics: Meropenem Day 0 Continue IV steroids, bronchodilators, O2 monitoring (2) Cough Current Visit: No Status: Acute Assessment and plan: Patient's cough has improved dramatically, however she says that she is maybe feeling worse than yesterday Transition from Levquin to meropenem (3) Tachycardia Current Visit: Yes Status: Acute Assessment and plan: HR zana to 160s for several hours earlier EKG Demonstrated Sinus Tachycardia without signs of ischemia Likely multifactorial including beta-agonist, anxiety, and infection HR dropped with administration of ativan Continue to monitor (4) HTN (hypertension) Current Visit: No Status: Chronic Assessment and plan: Very well controlled blood pressure. Qualifiers: Hypertension type: essential hypertension Qualified Code(s): I10 - Essential (primary) hypertension (5) CAD (coronary artery disease) Current Visit: No Status: Chronic Assessment and plan: Stable coronary artery disease. Patient denies chest pain Qualifiers: Coronary Disease-Associated Artery/Lesion type: [place] artery [place] vs. transplanted heart: [place] heart Associated angina: without angina Qualified Code(s): I25.10 - Atherosclerotic heart disease of [place] coronary artery without angina pectoris (6) DVT prophylaxis Current Visit: No Status: Acute Assessment and plan: SQ Heparin - Subjective Interval history: The patient is resting comfortably in bed at time of examination. She is still having dyspnea however she is also having some tachycardia which is giving her palpitations. She is expansive any chest pain. - Constitutional Vitals: Temp Pulse Resp BP Pulse Ox 97.9 F 85 14 135/89 98 09/09/17 14:31 09/09/17 14:31 09/09/17 15:20 09/09/17 14:31 09/09/17 15:20 General appearance: Present: mild distress, A&O X 3, pleasant, answers questions appropriately - Head Head exam: Present: atraumatic, normocephalic - Eye Eye exam: Present: PERRL, conjuntiva pink, sclera anicteric Pupils: Present: PERRL - Neck Neck exam general surgery: Present: supple, trachea midline. Absent: lymphadenopathy - Respiratory Respiratory exam: Present: rhonchi. Absent: accessory muscle use, rales, wheezes Additional comments: mild ronchi diffusely - Cardiovascular Cardiovascular exam: Present: RRR, +S1, +S2. Absent: diastolic murmur, gallop, rubs, systolic murmur - GI/Abdominal GI/Abdominal exam: Present: normal bowel sounds, soft, no peritoneal signs. Absent: distended, tenderness - Extremities Exam Extremities exam: Present: warm, radial pulses palpable and symmetrical. Absent : calf tenderness, cyanotic, pedal edema - Neurological Exam Neurological exam: Present: CN II-XII intact, oriented X3, no focal deficits. Absent: pronater drift, facial droop, speech deficit - Skin Skin exam: Present: dry, intact Internal Medicine: Result - Labs CBC & Chem 7: 09/07/17 00:36 09/07/17 00:36 Consult Discharge Plan - Plan Referrals: Tate Franks MD [Primary Care Provider] - 09/17/17 2:45 pm Prescriptions: Amoxicillin/Clavulanate [Augmentin] 875 mg PO BIDWM #8 tablet predniSONE [PredniSONE] 40 mg PO DAILY #8 tablet <Bryn Gomez - Last Filed: 09/09/17 20:26> Date of Encounter: 09/09/17 - Assessment and plan (1) COPD exacerbation Current Visit: Yes Status: Acute (2) Cough Current Visit: No Status: Acute (3) HTN (hypertension) Current Visit: No Status: Chronic Qualifiers: Hypertension type: essential hypertension Qualified Code(s): I10 - Essential (primary) hypertension (4) CAD (coronary artery disease) Current Visit: No Status: Chronic Qualifiers: Coronary Disease-Associated Artery/Lesion type: [place] artery [place] vs. transplanted heart: [place] heart Associated angina: without angina Qualified Code(s): I25.10 - Atherosclerotic heart disease of [place] coronary artery without angina pectoris (5) DVT prophylaxis Current Visit: No Status: Acute - Constitutional Vitals: Temp Pulse Resp BP Pulse Ox 97.9 F 85 18 135/89 97 09/09/17 14:31 09/09/17 14:31 09/09/17 19:51 09/09/17 14:31 09/09/17 19:51 Internal Medicine: Result - Labs CBC & Chem 7: 09/07/17 00:36 09/07/17 00:36 - Attending Attestation I examined this patient and my medical decision-making was reviewed with the Resident Physician. I agree with the documented findings, disposition and treatment plan as described except to the extent set forth below. 67/female Admitted with COPD exacerbation. Presently on antibiotics/steroids/bronchodilators. Gradually improving. Plan: Home in 1-2 days.
--- NOTE | 2017-09-09 18:12 | Electrocardiograph Report ---
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
[2017-09-09] MEDS: Albuterol 2.5 MG/3 ML NEBULIZER IH PRN (18:23)
[2017-09-09] MEDS: *HR* FentaNYL PATCH 75 MCG PATCH TD SCH (22:08)
[2017-09-09] MEDS ORDERED: *HR* FentaNYL PATCH 75 MCG PATCH TD SCH (23:30)
[2017-09-09] MEDS: Meropenem 1,000 MG in 0.9 % Sodium Chloride Mini Bag 100 ML IVPB SCH (23:45)
[2017-09-10] MEDS: Ipratropium/Albuterol Neb 3 ML IH SCH ×5 (03:49→20:18)
[2017-09-10] MEDS: 0.9 % Sodium Chloride 1,000 ML IVC SCH (04:06)
[2017-09-10] MEDS: *HR* Heparin 5,000 UNIT/ML VIAL SQ SCH ×2 (05:06→16:54)
--- NOTE | 2017-09-10 05:35 | Internal Med Progress Note ---
<Frederick Diego - Last Filed: 09/10/17 15:51> Date of Encounter: 09/10/17 Time of Encounter: 08:35 - Assessment and plan (1) COPD exacerbation Current Visit: No Status: Acute Assessment and plan: Hospitalization: Day 5 Admitted for COPD exacerbation, significantly improved Continue antibiotics: Azithromycin day 2 Steroid day 5 Continue bronchodilators, O2 monitoring (2) Cough Current Visit: No Status: Acute Assessment and plan: Patient's cough has improved dramatically Continue Azithromycin (3) Tachycardia Current Visit: Yes Status: Acute Assessment and plan: Tachycardia continued overnight and into this morning Rhythm appears to be Sinus Tach/SVT, appears labile Patient received Valium this morning which did not help Started cardizem drip, continue to monitor (4) HTN (hypertension) Current Visit: No Status: Chronic Assessment and plan: Very well controlled blood pressure Qualifiers: Hypertension type: essential hypertension Qualified Code(s): I10 - Essential (primary) hypertension (5) CAD (coronary artery disease) Current Visit: No Status: Chronic Assessment and plan: Stable coronary artery disease. Patient denies chest pain Qualifiers: Coronary Disease-Associated Artery/Lesion type: [place] artery [place] vs. transplanted heart: [place] heart Associated angina: without angina Qualified Code(s): I25.10 - Atherosclerotic heart disease of [place] coronary artery without angina pectoris (6) DVT prophylaxis Current Visit: No Status: Acute Assessment and plan: SQ Heparin - Subjective Interval history: The patient is resting comfortably in bed at time of examination. She said that she was breathing much easier over night, and is feeling better than she was. She does admit to feelings of palpitations overnight which were bothersome. This morning she is accompanied by her daughter, who says that she's actually been complaining of feelings of a racing heart for the past month. She denied chest pains overnight. - Constitutional Vitals: Temp Pulse Resp BP Pulse Ox 98.3 F 99 18 144/83 97 09/10/17 04:09 09/10/17 04:09 09/10/17 04:09 09/10/17 04:09 09/10/17 04:09 General appearance: Present: mild distress, A&O X 3, pleasant, answers questions appropriately Exam: - Head Head exam: Present: atraumatic, normocephalic - Eye Eye exam: Present: PERRL, conjuntiva pink, sclera anicteric Pupils: Present: PERRL - Neck Neck exam general surgery: Present: supple, trachea midline. Absent: lymphadenopathy - Respiratory Respiratory exam: Present: rhonchi. Absent: accessory muscle use, rales, wheezes Additional comments: mild ronchi diffusely - Cardiovascular Cardiovascular exam: Present: RRR, +S1, +S2. Absent: diastolic murmur, gallop, rubs, systolic murmur - GI/Abdominal GI/Abdominal exam: Present: normal bowel sounds, soft, no peritoneal signs. Absent: distended, tenderness - Extremities Exam Extremities exam: Present: warm, radial pulses palpable and symmetrical. Absent : calf tenderness, cyanotic, pedal edema - Neurological Exam Neurological exam: Present: CN II-XII intact, oriented X3, no focal deficits. Absent: pronater drift, facial droop, speech deficit - Skin Skin exam: Present: dry, intact Internal Medicine: Result - Labs CBC & Chem 7: 09/10/17 05:32 09/10/17 05:32 Consult Discharge Plan - Plan Referrals: Tate Franks MD [Primary Care Provider] - 09/17/17 2:45 pm Prescriptions: Amoxicillin/Clavulanate [Augmentin] 875 mg PO BIDWM #8 tablet predniSONE [PredniSONE] 40 mg PO DAILY #8 tablet <Lino Pringle - Last Filed: 09/10/17 18:28> Date of Encounter: 09/10/17 - Assessment and plan (1) Acute and chronic respiratory failure Current Visit: Yes Status: Acute Qualifiers: Respiratory failure complication: hypoxia Qualified Code(s): J96.21 - Acute and chronic respiratory failure with hypoxia (2) COPD exacerbation Current Visit: Yes Status: Acute (3) GERD (gastroesophageal reflux disease) Current Visit: No Status: Chronic Qualifiers: Esophagitis presence: without esophagitis Qualified Code(s): K21.9 - Gastro -esophageal reflux disease without esophagitis (4) Tachycardia Current Visit: Yes Status: Acute (5) HTN (hypertension) Current Visit: No Status: Chronic Qualifiers: Hypertension type: essential hypertension Qualified Code(s): I10 - Essential (primary) hypertension (6) CAD (coronary artery disease) Current Visit: No Status: Chronic Qualifiers: Coronary Disease-Associated Artery/Lesion type: [place] artery [place] vs. transplanted heart: [place] heart Associated angina: without angina Qualified Code(s): I25.10 - Atherosclerotic heart disease of [place] coronary artery without angina pectoris - Constitutional Vitals: Temp Pulse Resp BP Pulse Ox 98.1 F 89 14 119/64 100 09/10/17 15:15 09/10/17 16:50 09/10/17 15:44 09/10/17 16:50 09/10/17 15:44 Internal Medicine: Result - Labs CBC & Chem 7: 09/10/17 05:32 09/10/17 05:32 Labs: Short CBC 09/10/17 Range/Units 05:32 WBC 6.8 (4.3-11.1) K/mcL Hgb 11.2 L (11.5-15.4) g/dL Hct 34.9 L (35.3-44.9) % Plt Count 216 (140-400) K/mcL Neutrophils # 5.6 (1.6-8.9) K/mcL BMP 09/10/17 05:32 Sodium 142 Potassium 3.6 Chloride 105 Carbon Dioxide 29 BUN 12 Creatinine 0.66 Glucose 106 H Calcium 8.5 L - Attending Attestation I examined this patient and my medical decision-making was reviewed with the Resident Physician on 09/10/17. I agree with the documented findings, disposition and treatment plan as described except to the extent set forth below. Ms Bautista is currently admitted for acute exacerbation of COPD. She remains moderate to high risk due to potential for worsening respiratory status. Ms Bautista is feeling a little better. She had a lot of anxiety and tachycardia earlier today. She has responded to card. drip. She was also give Valium earlier today. Now her heartrate is in 80s. No CP. SOB about the same. No fever or chills. Exam Alert. Comfortable now. Mucus membranes moist Heart reg - not tachy now Lungs with diffuse end exp wheeze Abd soft No edema I/P 1. Exac COPD 2. Acute on chronic resp failure 3. Tachycardia - ? MAT Try oral Cardizem. Further diagnoses and plan as above.
[2017-09-10 05:44] LABS: Basophils % 0.1 %; Hematocrit 34.9 % (35.3-44.9); Hemoglobin 11.2 g/dL (11.5-15.4); Immature Granulocytes % 1.8 % (0-4); Lymphocytes # 0.7 K/mcL (0.6-4.6); Lymphocytes % 9.9 %; Mean Corpuscular HGB Conc 32.1 g/dL (31.6-35.5); Mean Corpuscular Hemoglobin 31.7 pg (28.0-33.3); Mean Corpuscular Volume 98.9 fL (83.0-100.0); Mean Platelet Volume 11.6 fL (9.4-12.4); Monocytes # 0.4 K/mcL (0.0-1.3); Monocytes % 5.3 %; Neutrophils # 5.6 K/mcL (1.6-8.9); Platelet Count 216 K/mcL (140-400); Red Blood Count 3.53 M/mcL (3.82-4.97); Red Cell Distribution Width 13.3 % (11.5-14.5); Segmented Neutrophils % 82.9 %
[2017-09-10 06:16] LABS: BUN/Creatinine Ratio 18 (6-26); Blood Urea Nitrogen 12 mg/dL (7-20); Calcium 8.5 mg/dL (8.6-10.8); Carbon Dioxide 29 mEq/L (19-29); Chloride 105 mEq/L (98-109); Glucose 106 mg/dL (70-99); Osmolality,Calculated 294 (280-300); Sodium 142 mEq/L (136-145); eGFR For African Americans > 60 (> 60); eGFR For Non-African Americans > 60 (> 60)
[2017-09-10 06:24] LABS: Potassium 3.6 mEq/L (3.5-4.5)
[2017-09-10] MEDS: Meropenem 1,000 MG in 0.9 % Sodium Chloride Mini Bag 100 ML IVPB SCH (09:47)
[2017-09-10] MEDS: MethylPREDNISolone 40 MG/ML VIAL IVP SCH (09:48)
[2017-09-10] MEDS: diazePAM 5 MG TABLET PO SCH ×2 (09:49→21:24)
--- NOTE | 2017-09-10 14:30 | Electrocardiograph Report ---
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
[2017-09-10] MEDS ORDERED: dilTIAZem HCl 60 MG TABLET PO SCH (17:00)
[2017-09-11] MEDS: Ipratropium/Albuterol Neb 3 ML IH SCH ×6 (00:03→15:42)
[2017-09-11] MEDS: dilTIAZem HCl 60 MG TABLET PO SCH ×3 (00:40→12:34)
[2017-09-11] MEDS: Albuterol 2.5 MG/3 ML NEBULIZER IH PRN (03:41)
[2017-09-11 03:51] LABS: Basophils % 0.1 %; Eosinophils % 0.1 %; Hematocrit 34.6 % (35.3-44.9); Immature Granulocytes % 1.5 % (0-4); Lymphocytes # 2.4 K/mcL (0.6-4.6); Lymphocytes % 26.6 %; Mean Corpuscular HGB Conc 31.8 g/dL (31.6-35.5); Mean Corpuscular Hemoglobin 31.7 pg (28.0-33.3); Mean Corpuscular Volume 99.7 fL (83.0-100.0); Mean Platelet Volume 11.6 fL (9.4-12.4); Monocytes # 0.8 K/mcL (0.0-1.3); Monocytes % 8.5 %; Neutrophils # 5.6 K/mcL (1.6-8.9); Platelet Count 224 K/mcL (140-400); Red Blood Count 3.47 M/mcL (3.82-4.97); Red Cell Distribution Width 13.5 % (11.5-14.5); Segmented Neutrophils % 63.2 %
[2017-09-11 04:06] LABS: BUN/Creatinine Ratio 21 (6-26); Blood Urea Nitrogen 12 mg/dL (7-20); Calcium 8.6 mg/dL (8.6-10.8); Carbon Dioxide 36 mEq/L (19-29); Chloride 101 mEq/L (98-109); Glucose 87 mg/dL (70-99); Osmolality,Calculated 293 (280-300); Potassium 2.9 mEq/L (3.5-4.5); Sodium 142 mEq/L (136-145); eGFR For African Americans > 60 (> 60); eGFR For Non-African Americans > 60 (> 60)
[2017-09-11] MEDS: *HR* Heparin 5,000 UNIT/ML VIAL SQ SCH (06:21)
[2017-09-11] MEDS ORDERED: Potassium Chloride 40 MEQ, Lidocaine 1% 2 ML in D5% in Water 500 ML IVPB ONE (07:03)
[2017-09-11] MEDS: Ondansetron 4 MG/2 ML VIAL IVP PRN (08:38)
[2017-09-11] MEDS ORDERED: Azithromycin 250 MG TABLET PO SCH (09:00)
[2017-09-11] MEDS ORDERED: predniSONE 20 MG TABLET PO SCH (09:00)
[2017-09-11] MEDS: diazePAM 5 MG TABLET PO SCH (10:02)
[2017-09-11 10:59] VITALS: BP 129/73
[2017-09-11 13:56] LABS: BUN/Creatinine Ratio 16 (6-26); Blood Urea Nitrogen 11 mg/dL (7-20); Calcium 9.1 mg/dL (8.6-10.8); Carbon Dioxide 35 mEq/L (19-29); Chloride 100 mEq/L (98-109); Glucose 150 mg/dL (70-99); Osmolality,Calculated 294 (280-300); Sodium 141 mEq/L (136-145); eGFR For African Americans > 60 (> 60); eGFR For Non-African Americans > 60 (> 60)
[2017-09-11 13:57] LABS: Potassium 4.2 mEq/L (3.5-4.5)
--- NOTE | 2017-09-11 14:30 | Discharge Summary ---
<Frederick Diego - Last Filed: 09/11/17 15:01> Date of Encounter: 09/11/17 Time of Encounter: 08:30 - Discharge Diagnosis (1) COPD exacerbation Priority: Primary Status: Acute (2) Cough Priority: Secondary Status: Acute (3) Tachycardia Priority: Secondary Status: Acute (4) HTN (hypertension) Priority: Secondary Status: Chronic Qualifiers: Hypertension type: essential hypertension Qualified Code(s): I10 - Essential (primary) hypertension (5) CAD (coronary artery disease) Priority: Secondary Status: Chronic Qualifiers: Coronary Disease-Associated Artery/Lesion type: [place] artery Circle vs. transplanted heart: [place] heart Associated angina: without angina Qualified Code(s): I25.10 - Atherosclerotic heart disease of level[place] coronary artery without angina pectoris (6) DVT prophylaxis Priority: Secondary Status: Acute - Discharge Medications Prescriptions: Amoxicillin/Clavulanate [Augmentin] 875 mg PO BIDWM #4 tablet diazePAM [Valium] 2 mg PO BID 10 Days #20 tablet Diltiazem CD (24hr) [Cardizem CD] 180 mg PO 1800 #30 cap.er.24h Tiotropium [Spiriva] 18 mcg IH DAILY #1 inh Home Medications: Albuterol Sulfate [Albuterol Inhaler] 2 puff IH Q4HR PRN 07/23/15 [History] Docusate [Colace] 100 mg PO TID 07/23/15 [History] Beclomethasone Diprop 80mcg [QVAR 80 mcg] 2 puff IH BID PRN 12/07/15 [History] FentaNYL PATCH [Duragesic] 75 mcg TD Q72H 12/07/15 [History] Ipratropium/Albuterol Neb [Duoneb] 3 ml IH Q4H PRN 12/07/15 [History] Oxygen 2 - 3 l NS AD MDD 24 hours a day 08/05/16 [History] Omeprazole [PriLOSEC] 40 mg PO DAILY 09/06/17 [History] Albuterol Neb [Proventil Neb] 2.5 mg IH Q2H PRN inhsol 09/09/17 [Rx] Amoxicillin/Clavulanate [Augmentin] 875 mg PO BIDWM #4 tablet 09/11/17 [Rx] Diltiazem CD (24hr) [Cardizem CD] 180 mg PO 1800 #30 cap.er.24h 09/11/17 [Rx] Tiotropium [Spiriva] 18 mcg IH DAILY #1 inh 09/11/17 [Rx] diazePAM [Valium] 2 mg PO BID 10 Days #20 tablet 09/11/17 [Rx] Allergies/Adverse Reactions: 3 Allergy/AdvReac Type Severity Reaction Status Date / Time aspirin Allergy Hives Verified 08/05/16 16:10 cefpodoxime [From Vantin] Allergy Hives Verified 08/05/16 16:10 Cephalosporins Allergy Hives Verified 09/11/17 13:22 ciprofloxacin [From Cipro] Allergy Hives Verified 08/05/16 16:10 hydrocodone Allergy Hives Verified 08/05/16 16:10 moxifloxacin Allergy Hives Verified 08/05/16 16:10 propoxyphene Allergy Hives Verified 08/05/16 16:10 sodium bicarbonate Allergy Hives Verified 08/05/16 16:10 Sulfa (Sulfonamide Allergy Hives Verified 08/05/16 16:10 Antibiotics) tramadol Allergy Hives Verified 08/05/16 16:10 beta-lactam Allergy Hives Uncoded 08/05/16 16:11 cetpodoxime Allergy Hives Uncoded 08/05/16 16:11 multivitamins Allergy Hives Uncoded 08/05/16 16:11 Procedures/tests Complete & Pending: Procedures Performed prior 72 hours Category Date Time Status ECG 12 lead ECG [ECG] Routine Y 09/09/17 12:08 Completed EKG [ECG 12 lead ECG] [ECG] Stat Y 09/09/17 10:01 Completed - Notes to Outpatient Provider Ms. Bautista's COPD may return to poor control. I spoke with the patient at length about the benefits of LAMA/LABA in patients with severe COPD, however the patient is extremely concerned about her previous diagnosis of clot, which happened several years ago. It may be necessary for this patient to follow-up with ophthalmology in order to determine more about this diagnosis and whether or not she is a candidate for these medications. Additionally, the patient may need longer treatment with valium as her anxiety is contributing to rapid increases in heart rate that are difficult to control. I've given her a 10 day supply of 2mg, and you can continue or discontinue it at your discretion. Date of admission: 10/13/17 16:20 Primary care physician: Tate Franks MD Consults: 09/08/17 17:45 Consult to Registrar Assistant [CONS] Routine Reason for SW Consult: patient is asking for home health, bed bound, very anxious and taking narcotics at home, home oxygen 2liters via [employer] also has passport services at home. Discharging clinician: Frederick Diego Anticipated date of discharge: 09/11/17 - Patient Status Disposition: Home Health Service Condition: Good Functional capacity at discharge: wheelchair bound Overall status at discharge: patient is not back to baseline - Discharge Instructions Instructions: Diltiazem (By mouth), Diazepam (By mouth), Amoxicillin/ Clavulanate Potassium (By mouth), Tiotropium (By breathing), Chronic Obstructive Pulmonary Disease (DC) Follow Up With: Tate Franks MD [Primary Care Provider] - 09/17/17 2:45 pm Additional Instructions: Continue [employer] Home oxygen per previous orders. Make sure to take entire bottle of antibiotics - Diet and Activity Activity: increase activity as tolerated Diet: advance to your usual diet Hospital course: Ms. Bautista is a 67 year old female with history of CHF, COPD, coronary artery disease, GERD, as well as a self reported history of glaucoma. The patient presented to the ED with marked mucopurulent expectoration along with worsening cough upon minimal exertion. Patient has used regular home O2 of 2 L for some time, and lately has had increase her oxygen to 3-4 L. In the ED the patient was found to be saturating in the low 80s on 2 L of oxygen. Chest x-ray at that time demonstrated emphysema with no superimposed acute pulmonary findings to account for the patient's shortness of breath, however the patient's symptoms demonstrated likely COPD exacerbation and she was admitted for steroids , antibiotics, duonebs as well as cardiac monitoring. We will of course pursue the patient's breathing improved, however she began to develop increasingly rapid tachycardia. EKG demonstrated sinus tachycardia versus SVT which was not alleviated by vagal maneuvers or carotid massage. The patient admitted that she had previously been treated with Valium, however her primary care and attempted to wean her from the Valium. The tachycardia is most likely explained by a combination of the patient's anxiety, infection, COPD exacerbation, frequent albuterol use. Cardizem drip was initiated along with small dose of Valium 2 times a day which alleviated some of the tachycardia which demonstrated sinus rhythm. Likely, control of anxiety as well as COPD long-term will result in more appropriate rate control. Significantly, the patient is not treated him for appropriate COPD medications at this time due to refusal of LAMA/LABA for concerns of glaucoma exacerbation. I was not able to confirm diagnosis or severity of glaucoma from medical records, however the patient was unwilling to use a trial of Spiriva at time of discharge. Primary care may choose to refer the patient to ophthalmology as well as cardiology for management of glaucoma and tachycardia. The patient will be discharged home with scheduled valium, spiriva prescription, augmentin, and cardizem 160 PO with home health. - Time Spent with Patient Total time spent providing and/or coordinating discharge services: - Constitutional Vitals: Temp Pulse Resp BP Pulse Ox 98.3 F 88 20 129/73 93 09/11/17 10:55 09/11/17 10:55 09/11/17 11:13 09/11/17 10:55 09/11/17 11:13 General appearance: Present: mild distress, A&O X 3, pleasant, answers questions appropriately Exam: - Head Head exam: Present: atraumatic, normocephalic - Eye Eye exam: Present: PERRL, conjuntiva pink, sclera anicteric Pupils: Present: PERRL - Neck Neck exam general surgery: Present: supple, trachea midline. Absent: lymphadenopathy - Respiratory Respiratory exam: Present: rhonchi. Absent: accessory muscle use, rales, wheezes Additional comments: mild ronchi diffusely - Cardiovascular Cardiovascular exam: Present: RRR but rapid, +S1, +S2. Absent: diastolic murmur , gallop, rubs, systolic murmur - GI/Abdominal GI/Abdominal exam: Present: normal bowel sounds, soft, no peritoneal signs. Absent: distended, tenderness - Extremities Exam Extremities exam: Present: warm, radial pulses palpable and symmetrical. Absent : calf tenderness, cyanotic, pedal edema - Neurological Exam Neurological exam: Present: CN II-XII intact, oriented X3, no focal deficits. Absent: pronater drift, facial droop, speech deficit - Skin Skin exam: Present: dry, intact <Lino Pringle - Last Filed: 09/11/17 17:26> Date of Encounter: 09/11/17 - Discharge Diagnosis (1) Acute and chronic respiratory failure Priority: Primary Status: Acute Qualifiers: Respiratory failure complication: hypoxia Qualified Code(s): J96.21 - Acute and chronic respiratory failure with hypoxia (2) COPD exacerbation Priority: Primary Status: Acute (3) GERD (gastroesophageal reflux disease) Priority: Secondary Status: Chronic Qualifiers: Esophagitis presence: without esophagitis Qualified Code(s): K21.9 - Gastro -esophageal reflux disease without esophagitis (4) Tachycardia Status: Acute (5) HTN (hypertension) Status: Chronic Qualifiers: Hypertension type: essential hypertension Qualified Code(s): I10 - Essential (primary) hypertension (6) CAD (coronary artery disease) Status: Chronic Qualifiers: Coronary Disease-Associated Artery/Lesion type: [place] artery Circle vs. transplanted heart: [place] heart Associated angina: without angina Qualified Code(s): I25.10 - Atherosclerotic heart disease of [place] coronary artery without angina pectoris Procedures/tests Complete & Pending: Procedures Performed prior 72 hours Category Date Time Status ECG 12 lead ECG [ECG] Routine Y 09/09/17 12:08 Completed EKG [ECG 12 lead ECG] [ECG] Stat Y 09/09/17 10:01 Completed Date of admission: 09/06/17 16:20 Primary care physician: Tate Franks MD Consults: 09/08/17 17:45 Consult to Registrar Assistant [CONS] Routine Reason for SW Consult: patient is asking for home health, bed bound, very anxious and taking narcotics at home, home oxygen 2liters via [employer] also has passport services at home. Hospital course: Ms. Bautista is a 67 year old female - Time Spent with Patient Total time spent providing and/or coordinating discharge services: 39min - Constitutional Vitals: Temp Pulse Resp BP Pulse Ox 98.3 F 88 20 129/73 93 09/11/17 10:55 09/11/17 10:55 09/11/17 15:42 09/11/17 10:55 09/11/17 15:42 - Attending Attestation I examined this patient and my medical decision-making was reviewed with the Resident Physician on 09/11/17. I agree with the documented findings, disposition and treatment plan as described except to the extent set forth below. Ms Bautista has been admitted for acute exac COPD and tachycardia. Her heartrate has improved with treatment. She is afebrile with stable vitals. She is ready for discharge home. Exam Alert. Comfortable Mucus membranes moist Heart reg - not tachy now Lungs with scant wheeze Abd soft Plan D/C home today Discussed need for additional COPD meds and she refuses. Pt refused flu vaccine
--- NOTE | 2017-09-11 15:49 | Physician Discharge Referral ---
Home Health/Hosp Referral Info Transfer to: Home Health Attending Provider: Lino Pringle Provider in Charge Post Discharge: PCP - Diagnosis (1) COPD exacerbation Priority: Primary Status: Acute (2) Cough Priority: Secondary Status: Acute (3) Tachycardia Priority: Secondary Status: Acute (4) HTN (hypertension) Priority: Secondary Status: Chronic (5) CAD (coronary artery disease) Priority: Secondary Status: Chronic (6) DVT prophylaxis Priority: Secondary Status: Acute - Respiratory Orders Oxygen / L per min (Continue home dose O2) Smoking Cessation: Smoking cessation has been advised. For more information, call the [place] Tobacco Quit Line at 4-066-VBNV-NOW. - Diet/Nutrition Diet/Nutrition Orders: Regular - Activity Activity Orders: Chair - Services Needed Following services are medically necessary services: Home Health Aide - Transfer Medications Prescriptions: Amoxicillin/Clavulanate [Augmentin] 875 mg PO BIDWM #4 tablet diazePAM [Valium] 2 mg PO BID 10 Days #20 tablet Diltiazem CD (24hr) [Cardizem CD] 180 mg PO 1800 #30 cap.er.24h Tiotropium [Spiriva] 18 mcg IH DAILY #1 inh Home Medications: Albuterol Sulfate [Albuterol Inhaler] 2 puff IH Q4HR PRN 07/23/15 [History] Docusate [Colace] 100 mg PO TID 07/23/15 [History] Beclomethasone Diprop 80mcg [QVAR 80 mcg] 2 puff IH BID PRN 12/07/15 [History] FentaNYL PATCH [Duragesic] 75 mcg TD Q72H 12/07/15 [History] Ipratropium/Albuterol Neb [Duoneb] 3 ml IH Q4H PRN 12/07/15 [History] Oxygen 2 - 3 l NS AD MDD 24 hours a day 08/05/16 [History] Omeprazole [PriLOSEC] 40 mg PO DAILY 09/06/17 [History] Albuterol Neb [Proventil Neb] 2.5 mg IH Q2H PRN inhsol 09/09/17 [Rx] Amoxicillin/Clavulanate [Augmentin] 875 mg PO BIDWM #4 tablet 09/11/17 [Rx] Diltiazem CD (24hr) [Cardizem CD] 180 mg PO 1800 #30 cap.er.24h 09/11/17 [Rx] Tiotropium [Spiriva] 18 mcg IH DAILY #1 inh 09/11/17 [Rx] diazePAM [Valium] 2 mg PO BID 10 Days #20 tablet 09/11/17 [Rx] Allergies/Adverse Reactions: 3 Allergy/AdvReac Type Severity Reaction Status Date / Time aspirin Allergy Hives Verified 08/05/16 16:10 cefpodoxime [From Vantin] Allergy Hives Verified 08/05/16 16:10 Cephalosporins Allergy Hives Verified 09/11/17 13:22 ciprofloxacin [From Cipro] Allergy Hives Verified 08/05/16 16:10 hydrocodone Allergy Hives Verified 08/05/16 16:10 moxifloxacin Allergy Hives Verified 08/05/16 16:10 propoxyphene Allergy Hives Verified 08/05/16 16:10 sodium bicarbonate Allergy Hives Verified 08/05/16 16:10 Sulfa (Sulfonamide Allergy Hives Verified 08/05/16 16:10 Antibiotics) tramadol Allergy Hives Verified 08/05/16 16:10 beta-lactam Allergy Hives Uncoded 08/05/16 16:11 cetpodoxime Allergy Hives Uncoded 08/05/16 16:11 multivitamins Allergy Hives Uncoded 08/05/16 16:11 Certification: Further, I certify that my clinical findings support that this patient is homebound (i.e. absences from home require considerable and taxing effort and are for medical reasons or spiritism services or infrequently or short duration when for other reasons) because: Homebound Reason: Leaving home requires considerable and taxing effort due to condition, Severity of cardiac or pulmonary status limits activity tolerance Attestation: My signature below is to certify that this patient is under my care and that I, or nurse practitioner, or a physician's periodontal assistant working with me, has a face-to -face encounter with this patient.
[2017-09-11] MEDS ORDERED: Diltiazem CD (24hr) 180 MG CAPSULE PO SCH (18:00)
== END 2017-09-11 16:17 | disposition home health service (06) | DRG 190 ==
LOC: EMEROO 03:07 → 2NENU 03:07 → SUATTDRO 16:20
PROVIDERS: ADMIT Internal Medicine; ATTEND Internal Medicine

== ENCOUNTER 2018-03-26 20:31 | Inpatient (IN) ==
[2018-03-26] MEDS ORDERED: Ipratropium/Albuterol Neb 3 ML IH ONE (20:37)
[2018-03-26] MEDS ORDERED: 0.9 % Sodium Chloride 1,000 ML IVC ONE ×2 (20:37→23:02)
[2018-03-26] MEDS ORDERED: methylPREDNISolone 125 MG/2 ML VIAL IVP ONE (20:37)
[2018-03-26 20:54] LABS: Basophils # 0.1 K/mcL (0.0-0.2); Basophils % 0.9 %; Eosinophils # 0.4 K/mcL (0.0-0.6); Eosinophils % 3.4 %; Hematocrit 39.5 % (35.3-44.9); Hemoglobin 12.7 g/dL (11.5-15.4); Immature Granulocytes % 0.3 % (0-4); Lymphocytes # 6.1 K/mcL (0.6-4.6); Lymphocytes % 50.7 %; Mean Corpuscular HGB Conc 32.2 g/dL (31.6-35.5); Mean Corpuscular Hemoglobin 31.8 pg (28.0-33.3); Mean Platelet Volume 11.3 fL (9.4-12.4); Monocytes # 1.1 K/mcL (0.0-1.3); Monocytes % 8.9 %; Neutrophils # 4.3 K/mcL (1.6-8.9); Platelet Count 367 K/mcL (140-400); Red Blood Count 3.99 M/mcL (3.82-4.97); Red Cell Distribution Width 12.5 % (11.5-14.5); Segmented Neutrophils % 35.8 %
--- NOTE | 2018-03-26 21:12 | Emergency Department Note ---
Disposition Clinical Impression: COPD exacerbation COPD (chronic obstructive pulmonary disease) Qualifiers: COPD type: chronic bronchitis Chronic bronchitis type: unspecified Qualified Code(s): J42 - Unspecified chronic bronchitis Disposition: Admitted As Inpatient Condition: Good Referrals: Tate Franks MD [Primary Care Provider] - Forms: ED Satisfaction Letter Time of Disposition: 23:04 General Adult HPI - General Chief complaint: ED Shortness of Breath/Dyspnea Stated complaint: Ajit Time Seen by Provider: 03/26/18 20:37 Source: patient, EMS Limitations: no limitations Nursing Notes Reviewed: Yes Vital Signs Reviewed: Yes - History of Present Illness HPI Narrative: Female patient presenting to [facility] complaining of shortness of breath. Started to 3 hours prior to arrival here. Does have a history of COPD. No recent illnesses. Requiring more oxygen than she is generally on at home. No chest pain. Denies any fevers or cough. Pain Scale: 6 - Related Data Home Medications Medication Instructions Recorded Confirmed Albuterol Sulfate [Albuterol 2 puff IH Q4HR PRN 07/23/15 09/06/17 Inhaler] Docusate [Colace] 100 mg PO TID 07/23/15 09/06/17 Beclomethasone Diprop 80mcg [QVAR 2 puff IH BID PRN 12/07/15 09/06/17 80 mcg] FentaNYL PATCH [Duragesic] 75 mcg TD Q72H 12/07/15 09/06/17 Ipratropium/Albuterol Neb [Duoneb] 3 ml IH Q4H PRN 12/07/15 09/06/17 Oxygen 2 - 3 l NS AD MDD 24 hours a day 08/05/16 09/06/17 Omeprazole [PriLOSEC] 40 mg PO DAILY 09/06/17 09/06/17 Previous Rx's Medication Instructions Recorded Albuterol Neb [Proventil Neb] 2.5 mg IH Q2H PRN inhsol 09/09/17 Amoxicillin/Clavulanate [Augmentin] 875 mg PO BIDWM #4 tablet 09/11/17 Diltiazem CD (24hr) [Cardizem CD] 180 mg PO 1800 #30 cap.er.24h 09/11/17 Tiotropium [Spiriva] 18 mcg IH DAILY #1 inh 09/11/17 diazePAM [Valium] 2 mg PO BID 10 Days #20 tablet 09/11/17 Dicyclomine [Bentyl] 10 mg PO TID #20 capsule 09/25/17 Allergies Allergy/AdvReac Type Severity Reaction Status Date / Time aspirin Allergy Hives Verified 09/25/17 11:53 cefpodoxime [From Vantin] Allergy Hives Verified 09/25/17 11:53 Cephalosporins Allergy Hives Verified 09/25/17 11:53 ciprofloxacin [From Cipro] Allergy Hives Verified 09/25/17 11:53 diltiazem [From Cardizem] Allergy Hives Verified 09/25/17 12:21 hydrocodone Allergy Hives Verified 09/25/17 11:53 moxifloxacin Allergy Hives Verified 09/25/17 11:53 propoxyphene Allergy Hives Verified 09/25/17 11:53 sodium bicarbonate Allergy Hives Verified 09/25/17 11:53 Sulfa (Sulfonamide Allergy Hives Verified 09/25/17 11:53 Antibiotics) tramadol Allergy Hives Verified 09/25/17 11:53 beta-lactam Allergy Hives Uncoded 09/25/17 11:53 cetpodoxime Allergy Hives Uncoded 09/25/17 11:53 iv dye Allergy See Uncoded 09/25/17 12:20 Comments multivitamins Allergy Hives Uncoded 09/25/17 11:53 All systems ED: reviewed and negative except as stated. Constitutional: Denies: fever, chills ENT ED: Denies: congestion Cardiovascular: Denies: chest pain, palpitations, syncope Respiratory: Reports: dyspnea, wheezes. Denies: cough Gastrointestinal: Denies: abdominal pain, nausea, vomiting, diarrhea Genitourinary: Denies: urgency, dysuria, frequency Musculoskeletal: Denies: back pain, neck pain Integumentary: Denies: rash Neurological: Denies: headache, weakness Past Medical History - Past Medical History Attestation: Yes The following information was validated with the patient. Source: patient Medical history: Reports: asthma, CHF, COPD, coronary artery disease, GERD, glaucoma, other Surgical history: Reports: appendectomy Psychiatric history: Reports: anxiety, PTSD - Social History Smoking Status: Former smoker Smokeless Tobacco Status: No Alcohol use: Reports: none Drug use: Reports: none Physical Exam - General Limitations: no limitations General appearance: alert, in distress (Respiratory) - Head Head exam: atraumatic, normocephalic, normal inspection - Eye Eye exam: Present: normal appearance, PERRL, EOMI. Absent: scleral icterus - ENT ENT exam: normal exam, normal oropharynx, mucous membranes dry - Neck Neck exam: Present: normal inspection, full ROM - Chest Chest inspection: Present: normal inspection, symmetric chest wall rise. Absent : tenderness - Respiratory Respiratory exam: Present: respiratory distress, wheezes (Tight lung sounds throughout.), accessory muscle use - Cardiovascular Cardiovascular exam: Present: tachycardia, irregular rhythm, normal heart sounds - Abdominal Exam Abdominal exam: Present: soft, Non-Tender. Absent: tenderness, distention, guarding, rigidity, organomegaly - Extremities Exam Extremities exam: Present: normal inspection, full ROM, normal capillary refill. Absent: tenderness, pedal edema - Back Exam Back exam: Present: normal inspection, full ROM. Absent: tenderness, CVA tenderness (R), CVA tenderness (L) - Neurological Exam Neurological exam: Present: alert, oriented X3 - Psychiatric Psychiatric exam: Present: anxious - Skin Skin exam: Present: warm, dry, intact, normal color. Absent: rash Course Course Narrative: Female patient presenting to emergency department complaining of shortness of breath. She states it started approximately 2-3 hours prior to calling 911. She is on oxygen all the time for COPD however has increased her need for this. She generally wears 2 L and cannot keep her oxygen saturation above the high 80s on this. She states she did get a has bleeding after increasing it to 3 L today. She does have tight lung sounds throughout. She is also tachycardic. She does have a history of A. fib. States she takes medication for this. She denies any chest pain. She denies any recent cough or illness. She does appear dyspneic on exam. Lung sounds are tight. She is using accessory muscles to breathe at this time. We will give her a triple DuoNeb and provide her with steroids. We will get a chest x-ray basic lab workup. Was to provide her with a liter of fluid and she appears to be dehydrated clinically. - Reevaluation(s) Reevaluation #1: Patient's tachycardia is decreasing. She did well to the duo nebs and steroids. She is able to speak in full sentences at this time. She is still requiring 4 L of oxygen to maintain oxygen saturation in the mid 90s. She generally uses 2 at home. We will admit patient to the hospital for hypoxia as well as COPD exacerbation. We have started her on azithromycin at this time. Time: 23:03 - Consultations Consultation #1: Dr Acuna accepted Pt in stable condition. Time: 23:16 Vital Signs Temperature 99.2 F 03/26/18 20:34 Pulse Rate 155 03/26/18 20:34 Respiratory Rate 25 03/26/18 20:34 Blood Pressure 146/81 03/26/18 20:34 O2 Sat by Pulse Oximetry 92 03/26/18 20:34 Temperature 99.2 F 03/26/18 20:34 Pulse Rate 126 03/26/18 22:09 Respiratory Rate 16 03/26/18 22:09 Blood Pressure 103/61 03/26/18 22:09 O2 Sat by Pulse Oximetry 95 03/26/18 22:09 Oxygen Delivery Oxygen Delivery Nasal Cannula Medical Decision Making - Medical Records Medical records reviewed: Yes I reviewed the patient's medical records. - Lab Data Lab results reviewed: Yes I reviewed the patient's lab results. Result diagrams: 03/26/18 20:42 03/26/18 20:42 Lab Results 03/26/18 03/26/18 03/26/18 Range/Units 20:42 20:42 20:42 WBC 12.0 H (4.3-11.1) K/mcL RBC 3.99 (3.82-4.97) M/mcL Hgb 12.7 (11.5-15.4) g/dL Hct 39.5 (35.3-44.9) % MCV 99.0 (83.0-100.0) fL MCH 31.8 (28.0-33.3) pg MCHC 32.2 (31.6-35.5) g/dL RDW 12.5 (11.5-14.5) % Plt Count 367 (140-400) K/mcL MPV 11.3 (9.4-12.4) fL Immature Gran % 0.3 (0-4) % Seg Neutrophils % 35.8 % Lymphocytes % 50.7 % Monocytes % 8.9 % Eosinophils % 3.4 % Basophils % 0.9 % Neutrophils # 4.3 (1.6-8.9) K/mcL Lymphocytes # 6.1 H (0.6-4.6) K/mcL Monocytes # 1.1 (0.0-1.3) K/mcL Eosinophils # 0.4 (0.0-0.6) K/mcL Basophils # 0.1 (0.0-0.2) K/mcL Sodium 139 (136-145) mEq/L Potassium 4.3 (3.5-5.1) mEq/L Chloride 99 (98-107) mEq/L Carbon Dioxide 33 H (23-29) mEq/L BUN 14 (8-23) mg/dL Creatinine 0.70 (0.60-1.20) mg/dL Est GFR ( Amer) > 60 (> 60) Est GFR (Non-Af Amer) > 60 (> 60) BUN/Creatinine Ratio 20 (6-26) Glucose 228 H (70-105) mg/dL Calculated Osmolality 296 (280-300) Lactic Acid 2.3 H (0.5-2.2) mmol/L Calcium 9.5 (8.6-10.3) mg/dL Troponin I < 0.03 (< 0.04) ng/mL Urine Color (Yellow) Urine Clarity (Clear) Urine pH (5.0-8.0) pH Units Ur Specific [place] (1.010-1.025) Urine Protein (Neg-Trace) mg/dL Urine Glucose (UA) (Normal) mg/dL Urine Ketones (Negative) mg/dL Urine Blood (Negative) Urine Nitrite (Negative) Urine Bilirubin (Negative) Urine Urobilinogen (Normal) mg/dL Ur Leukocyte Esterase (Negative) Urine Microscopic RBC (0-3) per hpf Urine Microscopic WBC (0-3) per hpf Ur Squamous Epith Cells (None-Few) per lpf Urine Bacteria (None-Few) per hpf Hyaline Casts (None-Few) per lpf Ur Culture Indicated? (NO) 03/26/18 Range/Units 21:55 WBC (4.3-11.1) K/mcL RBC (3.82-4.97) M/mcL Hgb (11.5-15.4) g/dL Hct (35.3-44.9) % MCV (83.0-100.0) fL MCH (28.0-33.3) pg MCHC (31.6-35.5) g/dL RDW (11.5-14.5) % Plt Count (140-400) K/mcL MPV (9.4-12.4) fL Immature Gran % (0-4) % Seg Neutrophils % % Lymphocytes % % Monocytes % % Eosinophils % % Basophils % % Neutrophils # (1.6-8.9) K/mcL Lymphocytes # (0.6-4.6) K/mcL Monocytes # (0.0-1.3) K/mcL Eosinophils # (0.0-0.6) K/mcL Basophils # (0.0-0.2) K/mcL Sodium (136-145) mEq/L Potassium (3.5-5.1) mEq/L Chloride (98-107) mEq/L Carbon Dioxide (23-29) mEq/L BUN (8-23) mg/dL Creatinine (0.60-1.20) mg/dL Est GFR ( Amer) (> 60) Est GFR (Non-Af Amer) (> 60) BUN/Creatinine Ratio (6-26) Glucose (70-105) mg/dL Calculated Osmolality (280-300) Lactic Acid (0.5-2.2) mmol/L Calcium (8.6-10.3) mg/dL Troponin I (< 0.04) ng/mL Urine Color Yellow (Yellow) Urine Clarity Clear (Clear) Urine pH 5.0 (5.0-8.0) pH Units Ur Specific [place] 1.028 H (1.010-1.025) Urine Protein Negative (Neg-Trace) mg/dL Urine Glucose (UA) Normal (Normal) mg/dL Urine Ketones Negative (Negative) mg/dL Urine Blood Trace H (Negative) Urine Nitrite Negative (Negative) Urine Bilirubin Negative (Negative) Urine Urobilinogen Normal (Normal) mg/dL Ur Leukocyte Esterase Small H (Negative) Urine Microscopic RBC 3-5 H (0-3) per hpf Urine Microscopic WBC 5-15 H (0-3) per hpf Ur Squamous Epith Cells Many H (None-Few) per lpf Urine Bacteria None Seen (None-Few) per hpf Hyaline Casts Few (None-Few) per lpf Ur Culture Indicated? NO. A (NO) - Radiology Data Radiology results reviewed: Yes I reviewed the patient's radiology results. - EKG Data EKG #1 EKG attestation: Yes I reviewed and interpreted this EKG. EKG results narrative: A. fib with RVR at a rate of 135. ME interval is 160. Castration is 70. QT is 250. QTC is 329. There is a significant amount of baseline artifact on this EKG.
[2018-03-26 21:17] LABS: Troponin I < 0.03 ng/mL (< 0.04)
[2018-03-26 21:19] LABS: BUN/Creatinine Ratio 20 (6-26); Blood Urea Nitrogen 14 mg/dL (8-23); Calcium 9.5 mg/dL (8.6-10.3); Carbon Dioxide 33 mEq/L (23-29); Chloride 99 mEq/L (98-107); Glucose 228 mg/dL (70-105); Osmolality,Calculated 296 (280-300); Potassium 4.3 mEq/L (3.5-5.1); Sodium 139 mEq/L (136-145); eGFR For African Americans > 60 (> 60); eGFR For Non-African Americans > 60 (> 60)
[2018-03-26 22:03] LABS: Bilirubin,Urine Negative (Negative); Blood,Urine Trace (Negative); Clarity,Urine Clear (Clear); Color,Urine Yellow (Yellow); Glucose,Urine (UA) Normal (Normal); Ketones,Urine Negative (Negative); Leukocyte Esterase,Urine Small (Negative); Nitrite,Urine Negative (Negative); Protein,Urine Negative (Neg-Trace); Specific Gravity,Urine 1.028 (1.010-1.025); Urobilinogen,Urine Normal (Normal)
[2018-03-26 22:05] LABS: Bacteria,Urine None Seen per hpf (None-Few); Hyaline Casts,Urine Few per lpf (None-Few); Squamous Epithelial Cell,Urine Many per lpf (None-Few)
[2018-03-26] MEDS ORDERED: Azithromycin 500 MG in D5% in Water 250 ML IVPB ONE (23:01)
[2018-03-26] MEDS ORDERED: Naloxone 0.4 MG/ML INJ IVP PRN (23:31)
[2018-03-26] MEDS ORDERED: *HR* Metoprolol 5 MG/5 ML VIAL IVP ONE (23:31)
[2018-03-26] MEDS ORDERED: Ipratropium/Albuterol Neb 3 ML IH PRN (23:32)
--- NOTE | 2018-03-26 23:32 | Internal Med History&Physical ---
Date of Encounter: 03/27/18 Time of Encounter: 23:28 Internal Medicine - H&P: HPI Chief complaint: shortness of breath Admitted From: Emergency Dept Plans for Post Hospital Care: Home History of present illness: Ms. Bautista is a 67 year old female , COPD on chronic O2, coronary artery disease, GERD, CHF per documentation although an echo was indeterminate a couple of years back, tachycardia for which she takes metoprolol per the patient who presents to the ED with complaints of about 3-4 hours of sudden onset shortness of breath. The patient is on home O2 chronically and has had the need to increase her O2 requirements. No fevers or chills. In the ED she was noted to be tachycardic and tachypnea. She was wheezing and was having conversational dyspnea. Given IV Solu-Medrol and multiple nebs treatment. She was tachcardic up to the 150s initially and given a couple of IVF boluses. Rate was down to the 120s by the time I evaluated the patient. Denies fever, chills, nausea, vomiting, chest pain, blurry vision, abdominal pain, diarrhea, constipation, urinary symptoms, or neurological symptoms. Chest x-ray was with nothing acute. Labs were mostly unremarkable but lactic acid was mildly elevated and normalized on repeat. Mild leukocytosis at 12.0. Past Med Surg Social Fam HX - Past Medical History Medical history: asthma, CHF, COPD, coronary artery disease, GERD, glaucoma, other Psychiatric history: anxiety, PTSD - Past Surgical History Surgical History: appendectomy - Social History Smoking Status: Former smoker Smokeless Tobacco Status: No Alcohol use: none Drug use: none - Family History Father Living Status: Hx Family Cardiac Disorders: Yes Hx Family Respiratory Disorders: Yes (lung cancer) Hx Family Cancer: Yes Hx Family GI Disorders: No Hx Family Endocrine Disorder: No Hx Family Neuromuscular Disorders: No Hx Family Neurologic Disorders: No Hx Family HEENT Disorders: No Hx Family Autoimmune Disorders: No Mother Living Status: Hx Family Cardiac Disorders: No Hx Family Respiratory Disorders: Yes (COPD) Hx Family Cancer: No Hx Family GI Disorders: No Hx Family Endocrine Disorder: Yes Hx Family Neuromuscular Disorders: No Hx Family Neurologic Disorders: No Hx Family HEENT Disorders: No Hx Family Autoimmune Disorders: No Sister Living Status: Hx Family Cardiac Disorders: Yes Hx Family Respiratory Disorders: Yes Hx Family Cancer: Yes Hx Family GI Disorders: No Hx Family Endocrine Disorder: No Hx Family Neuromuscular Disorders: No Hx Family Neurologic Disorders: No Hx Family HEENT Disorders: No Hx Family Autoimmune Disorders: No Brother Living Status: Hx Family Cardiac Disorders: Yes Hx Family Respiratory Disorders: No Hx Family Cancer: Yes Hx Family GI Disorders: No Hx Family Endocrine Disorder: No Hx Family Neuromuscular Disorders: No Hx Family Neurologic Disorders: No Hx Family HEENT Disorders: No Hx Family Autoimmune Disorders: No Internal Medicine - H&P: Meds Albuterol Sulfate [Albuterol Inhaler] 1 puff IH Q4HR 03/26/18 [History] Albuterol Sulfate [Proair Hfa] 2 puff IH Q4HR PRN 03/26/18 [History] Beclomethasone Diprop 80mcg [Qvar 80 mcg] 2 puff IH BID 03/26/18 [History] Docusate [Colace] 300 mg PO BID 03/26/18 [History] FentaNYL PATCH [Duragesic] 75 mcg TD Q72H 03/26/18 [History] Guaifenesin [Mucinex] 600 mg PO BID PRN 03/26/18 [History] Ipratropium/Albuterol Neb [Duoneb] 3 ml IH Q4HR 03/26/18 [History] Metoprolol Tartrate [Lopressor] 12.5 mg PO BID 03/26/18 [History] Omeprazole [PriLOSEC] 40 mg PO DAILY 03/26/18 [History] Ondansetron HCl [Zofran] 4 mg PO TID PRN 03/26/18 [History] diazePAM [Valium] 5 mg PO BID PRN 03/26/18 [History] 3 Allergy/AdvReac Type Severity Reaction Status Date / Time aspirin Allergy Hives Verified 09/25/17 11:53 cefpodoxime [From Vantin] Allergy Hives Verified 09/25/17 11:53 Cephalosporins Allergy Hives Verified 09/25/17 11:53 ciprofloxacin [From Cipro] Allergy Hives Verified 09/25/17 11:53 diltiazem [From Cardizem] Allergy Hives Verified 09/25/17 12:21 hydrocodone Allergy Hives Verified 09/25/17 11:53 moxifloxacin Allergy Hives Verified 09/25/17 11:53 propoxyphene Allergy Hives Verified 09/25/17 11:53 sodium bicarbonate Allergy Hives Verified 09/25/17 11:53 Sulfa (Sulfonamide Allergy Hives Verified 09/25/17 11:53 Antibiotics) tramadol Allergy Hives Verified 09/25/17 11:53 beta-lactam Allergy Hives Uncoded 09/25/17 11:53 cetpodoxime Allergy Hives Uncoded 09/25/17 11:53 iv dye Allergy See Uncoded 09/25/17 12:20 Comments multivitamins Allergy Hives Uncoded 09/25/17 11:53 All Systems PM: A 10-system review of systems was performed and is negative for pertinent findings except as documented above in the HPI. Review of systems: All systems reviewed are negative except for as mentioned above - Constitutional Vitals: Temp Pulse Resp BP Pulse Ox 99.2 F 131 16 104/76 94 03/26/18 20:34 03/26/18 23:16 03/26/18 23:16 03/26/18 23:16 03/26/18 23:16 Exam: GEN: NAD HEENT: AT, NC, No cyanosis, oral mucosa is moist, No JVD Lymphatics: No lymphadenoapthy Eyes: Extrocular muscles intact, anicteric CVS:RRR. S1, S2, No m/r/g RESP: Diminished with posterior expiratory wheezes. ABD: Soft, NT, ND, +BS EXT: No edema, No rashes, 2+ DP NEURO: Nonfocal, CN II-XII intact, No focal motor or sensory deficits Psych: Cooperative, Not anxious or depressed Internal Med - H&P Results - Labs CBC & Chem 7: 03/26/18 20:42 03/26/18 20:42 Labs: Short CBC 03/26/18 Range/Units 20:42 WBC 12.0 H (4.3-11.1) K/mcL Hgb 12.7 (11.5-15.4) g/dL Hct 39.5 (35.3-44.9) % Plt Count 367 (140-400) K/mcL Neutrophils # 4.3 (1.6-8.9) K/mcL BMP 03/26/18 20:42 Sodium 139 Potassium 4.3 Chloride 99 Carbon Dioxide 33 H BUN 14 Creatinine 0.70 Glucose 228 H Calcium 9.5 Cardiac Enzymes 03/26/18 Range/Units 20:42 Troponin I < 0.03 (< 0.04) ng/mL Urine 03/26/18 Range/Units 21:55 Urine Color Yellow (Yellow) Urine Clarity Clear (Clear) Urine pH 5.0 (5.0-8.0) pH Units Ur Specific [place] 1.028 H (1.010-1.025) Urine Protein Negative (Neg-Trace) mg/dL Urine Glucose (UA) Normal (Normal) mg/dL - Impressions ITS Impressions Chest X-Ray 03/26/18 20:37 IMPRESSION: Minimal medial left lung base atelectasis D/ / Rick Leon MD / Rick Leon MD Interpreting Provider: Rick Leon MD - Assessment and plan (1) COPD exacerbation Current Visit: No Status: Acute Assessment and plan: Admit to hospitalist. IV Solu-Medrol every q 8 hours. Nebs. IV Zithromax. Wean down O2 as tolerated. (2) Tachycardia Current Visit: No Status: Acute Assessment and plan: Continue IVF. resume home BB. Tells me she has no history of afib but her doctor told her that she "skips a beat". (3) HTN (hypertension) Current Visit: No Status: Chronic Assessment and plan: Resume home meds. Blood pressure stable. Qualifiers: Hypertension type: essential hypertension Qualified Code(s): I10 - Essential (primary) hypertension (4) GERD (gastroesophageal reflux disease) Current Visit: No Status: Chronic Assessment and plan: Continue home meds. Qualifiers: Esophagitis presence: without esophagitis Qualified Code(s): K21.9 - Gastro -esophageal reflux disease without esophagitis (5) CHF (congestive heart failure) Current Visit: Yes Status: Acute Assessment and plan: This is based on documentation. Patient has no signs of volume overload. Echo done a couple years back was indeterminate due to tachycardia. I would suggest repeating an echo once rate is better controlled. Qualifiers: Heart failure type: unspecified Heart failure chronicity: unspecified Qualified Code(s): I50.9 - Heart failure, unspecified (6) DVT prophylaxis Current Visit: No Status: Acute Assessment and plan: Heparin subcutaneous - Time Spent With Patient Total time spent is greater than 50% in coordination of care (as documented) at patient's floor/unit and/or counseling patient:
[2018-03-26] MEDS ORDERED: Ondansetron 4 MG/2 ML VIAL IVP ONE (23:40)
[2018-03-26] MEDS ORDERED: Ondansetron 4 MG/2 ML VIAL ONE (23:41)
[2018-03-26] MEDS ORDERED: 0.9 % Sodium Chloride 1,000 ML IVC SCH (23:45)
[2018-03-27 01:47] LABS: Basophils % 0.2 %; Eosinophils % 0.1 %; Hematocrit 38.7 % (35.3-44.9); Hemoglobin 12.2 g/dL (11.5-15.4); Immature Granulocytes % 0.3 % (0-4); Lymphocytes # 0.6 K/mcL (0.6-4.6); Lymphocytes % 5.4 %; Mean Corpuscular HGB Conc 31.5 g/dL (31.6-35.5); Mean Corpuscular Hemoglobin 31.5 pg (28.0-33.3); Mean Platelet Volume 11.2 fL (9.4-12.4); Monocytes # 0.1 K/mcL (0.0-1.3); Monocytes % 0.7 %; Platelet Count 274 K/mcL (140-400); Red Blood Count 3.87 M/mcL (3.82-4.97); Red Cell Distribution Width 12.4 % (11.5-14.5); Segmented Neutrophils % 93.3 %
[2018-03-27 02:04] LABS: BUN/Creatinine Ratio 25 (6-26); Blood Urea Nitrogen 12 mg/dL (8-23); Calcium 8.4 mg/dL (8.6-10.3); Carbon Dioxide 24 mEq/L (23-29); Chloride 106 mEq/L (98-107); Glucose 167 mg/dL (70-105); Magnesium 1.3 mg/dL (1.6-2.6); Osmolality,Calculated 292 (280-300); Sodium 139 mEq/L (136-145); eGFR For African Americans > 60 (> 60); eGFR For Non-African Americans > 60 (> 60)
[2018-03-27 02:17] LABS: Thyroid Stimulating Hormone 0.648 mcIU/mL (0.340-5.600)
[2018-03-27] MEDS: Ipratropium/Albuterol Neb 3 ML IH SCH ×5 (04:08→20:09)
[2018-03-27] MEDS ORDERED: methylPREDNISolone 125 MG/2 ML VIAL IVP SCH (08:00)
[2018-03-27] MEDS: diazePAM 5 MG TABLET PO PRN (09:01)
--- NOTE | 2018-03-27 10:14 | Internal Med Progress Note ---
Date of Encounter: 03/27/18 Time of Encounter: 10:12 - Assessment and plan (1) COPD exacerbation Current Visit: No Status: Acute Assessment and plan: Acute on chronic hypoxic respiratory failure secondary to acute COPD exacerbation due to sepsis from acute bacterial bronchitis next White blood cell count was 12 and heart rate was 150 Continue IV Solu-Medrol, azithromycin day #2, the patient uses 3 L of oxygen at home DuoNeb's Chest x-ray showed:Minimal medial left lung base atelectasis (2) HTN (hypertension) Current Visit: No Status: Chronic Assessment and plan: Resume home meds. Blood pressure stable. Qualifiers: Hypertension type: essential hypertension Qualified Code(s): I10 - Essential (primary) hypertension (3) GERD (gastroesophageal reflux disease) Current Visit: No Status: Chronic Assessment and plan: Continue home meds. Qualifiers: Esophagitis presence: without esophagitis Qualified Code(s): K21.9 - Gastro -esophageal reflux disease without esophagitis (4) Tachycardia Current Visit: No Status: Acute Assessment and plan: Continue IVF. resumed home metoprolol. (5) CHF (congestive heart failure) Current Visit: Yes Status: Acute Assessment and plan: History of diastolic CHF No exacerbation Qualifiers: Heart failure type: diastolic Heart failure chronicity: unspecified Qualified Code(s): I50.30 - Unspecified diastolic (congestive) heart failure (6) Hypomagnesemia Current Visit: Yes Status: Acute Assessment and plan: Replete - Time Spent With Patient Total time spent is greater than 50% in coordination of care (as documented) at patient's floor/unit and/or counseling patient: - Subjective Interval history: Feeling still short of breath, tachycardic, denies any chest pain, no fevers, no abdominal pain or dysuria - Constitutional Vitals: Temp Pulse Resp BP Pulse Ox 98.1 F 99 18 101/63 98 03/27/18 06:50 03/27/18 06:50 03/27/18 08:27 03/27/18 06:50 03/27/18 08:27 General appearance: Present: A&O X 3 - Head Head exam: Present: atraumatic, normocephalic - Eye Eye exam: Present: PERRL, conjuntiva pink, sclera anicteric Pupils: Present: PERRL - Neck Neck exam general surgery: Present: supple, trachea midline. Absent: lymphadenopathy - Respiratory Respiratory exam: Present: CTAB, wheezes (Diffuse wheezing). Absent: accessory muscle use, rales, rhonchi - Cardiovascular Cardiovascular exam: Present: RRR, +S1, +S2. Absent: diastolic murmur, gallop, rubs, systolic murmur - GI/Abdominal GI/Abdominal exam: Present: normal bowel sounds, soft, no peritoneal signs. Absent: distended, tenderness - Extremities Exam Extremities exam: Present: warm, radial pulses palpable and symmetrical. Absent : calf tenderness, cyanotic, pedal edema - Neurological Exam Neurological exam: Present: CN II-XII intact, oriented X3, no focal deficits. Absent: pronater drift, facial droop, speech deficit - Skin Skin exam: Present: dry, intact Internal Medicine: Result - Labs CBC & Chem 7: 03/27/18 01:31 03/27/18 01:31 Labs: Short CBC 03/27/18 Range/Units 01:31 WBC 10.7 (4.3-11.1) K/mcL Hgb 12.2 (11.5-15.4) g/dL Hct 38.7 (35.3-44.9) % Plt Count 274 (140-400) K/mcL Neutrophils # 10.0 H (1.6-8.9) K/mcL BMP 03/27/18 01:31 Sodium 139 Potassium 4.0 Chloride 106 Carbon Dioxide 24 BUN 12 Creatinine 0.48 L Glucose 167 H Calcium 8.4 L Consult Discharge Plan - Plan Referrals: Tate Franks MD [Primary Care Provider] -
[2018-03-27] MEDS: methylPREDNISolone 125 MG/2 ML VIAL IVP SCH ×2 (11:17→17:19)
[2018-03-27] MEDS: Magnesium Oxide 400 MG TABLET PO SCH ×2 (13:40→22:02)
[2018-03-27] MEDS: 0.9 % Sodium Chloride 1,000 ML IVC SCH (13:40)
--- NOTE | 2018-03-27 16:21 | Electrocardiograph Report ---
[place] [id number] Test Date: 2018-03-26 Pat Name: Ashley Bautista Department: 102 Room: [facility] Gender: F Credit Counselor: Shakira : 1950 Requested By: Jeanna aPdilla Order Number: [id number] Reading MD: Edith Orozco Measurements Intervals [place] Rate: 135 P: 62 AL: 160 QRS: -72 QRSD: 70 T: 91 QT: 250 QTc: 329 Interpretive Statements PROBABLE SINUS TACHYCARDIA LEFT ANTERIOR FASCICULAR BLOCK [QRS AXIS <= -45, QR IN I, RS IN II] POSSIBLE ANTERIOR MYOCARDIAL INFARCTION [30 ms Q WAVE IN V3/V4, OR R < 0.2 mV IN V4], OF INDETERMINATE AGE ARTIFACT Electronically Signed On 03-27-2018 16:20:03 EDT by Edith Orozco
[2018-03-27] MEDS ORDERED: Ondansetron 4 MG/2 ML VIAL IVP ONE (22:05)
[2018-03-27] MEDS: Ondansetron 4 MG/2 ML VIAL IVP PRN (22:57)
[2018-03-27] MEDS ORDERED: Azithromycin 500 MG in D5% in Water 250 ML IVPB SCH (23:00)
[2018-03-27] MEDS ORDERED: *HR* FentaNYL PATCH 75 MCG PATCH TD SCH (23:00)
[2018-03-28] MEDS: Ipratropium/Albuterol Neb 3 ML IH SCH ×7 (00:06→23:06)
[2018-03-28] MEDS: methylPREDNISolone 125 MG/2 ML VIAL IVP SCH ×3 (00:44→17:18)
[2018-03-28] MEDS: Acetaminophen 325 MG TABLET PO PRN (03:43)
[2018-03-28] MEDS: 0.9 % Sodium Chloride 1,000 ML IVC SCH (05:31)
[2018-03-28] MEDS: Ondansetron 4 MG/2 ML VIAL IVP PRN ×2 (10:04→20:51)
[2018-03-28] MEDS: Magnesium Oxide 400 MG TABLET PO SCH ×2 (10:06→20:39)
[2018-03-28] MEDS ORDERED: Azithromycin 250 MG TABLET PO ONE (10:54)
[2018-03-28] MEDS ORDERED: 0.9 % Sodium Chloride 1,000 ML IVC SCH (11:23)
--- NOTE | 2018-03-28 11:23 | Internal Med Progress Note ---
Date of Encounter: 03/28/18 Time of Encounter: 11:21 - Assessment and plan (1) COPD exacerbation Current Visit: No Status: Acute Assessment and plan: Acute on chronic hypoxic respiratory failure secondary to acute COPD exacerbation due to sepsis from acute bacterial bronchitis next White blood cell count was 12 and heart rate was 150 Continue IV Solu-Medrol, azithromycin day #3 and stop, the patient uses 3 L of oxygen at home DuoNeb's Chest x-ray showed:Minimal medial left lung base atelectasis (2) HTN (hypertension) Current Visit: No Status: Chronic Assessment and plan: Resume home meds. Blood pressure stable. Qualifiers: Hypertension type: essential hypertension Qualified Code(s): I10 - Essential (primary) hypertension (3) GERD (gastroesophageal reflux disease) Current Visit: No Status: Chronic Assessment and plan: Continue home meds. Qualifiers: Esophagitis presence: without esophagitis Qualified Code(s): K21.9 - Gastro -esophageal reflux disease without esophagitis (4) Tachycardia Current Visit: No Status: Acute Assessment and plan: Continue IVF. resumed home metoprolol. (5) CHF (congestive heart failure) Current Visit: Yes Status: Acute Assessment and plan: History of diastolic CHF No exacerbation Qualifiers: Heart failure type: diastolic Heart failure chronicity: unspecified Qualified Code(s): I50.30 - Unspecified diastolic (congestive) heart failure (6) Hypomagnesemia Current Visit: Yes Status: Acute Assessment and plan: Repleted - Time Spent With Patient Total time spent is greater than 50% in coordination of care (as documented) at patient's floor/unit and/or counseling patient: - Subjective Interval history: Saying that her oxygen desaturated down to the 80s. Still short of breath, tachycardic, denies any chest pain, no fevers, no abdominal pain or dysuria - Constitutional Vitals: Temp Pulse Resp BP Pulse Ox 98.1 F 103 16 101/61 98 03/28/18 10:39 03/28/18 10:39 03/28/18 11:19 03/28/18 10:39 03/28/18 11:19 General appearance: Present: A&O X 3 Exam: - Head Head exam: Present: atraumatic, normocephalic - Eye Eye exam: Present: PERRL, conjuntiva pink, sclera anicteric Pupils: Present: PERRL - Neck Neck exam general surgery: Present: supple, trachea midline. Absent: lymphadenopathy - Respiratory Respiratory exam: Present: CTAB, wheezes (less Diffuse wheezing). Absent: accessory muscle use, rales, rhonchi - Cardiovascular Cardiovascular exam: Present: RRR, +S1, +S2. Absent: diastolic murmur, gallop, rubs, systolic murmur - GI/Abdominal GI/Abdominal exam: Present: normal bowel sounds, soft, no peritoneal signs. Absent: distended, tenderness - Extremities Exam Extremities exam: Present: warm, radial pulses palpable and symmetrical. Absent : calf tenderness, cyanotic, pedal edema - Neurological Exam Neurological exam: Present: CN II-XII intact, oriented X3, no focal deficits. Absent: pronater drift, facial droop, speech deficit - Skin Skin exam: Present: dry, intact Internal Medicine: Result - Labs CBC & Chem 7: 03/27/18 01:31 03/27/18 01:31 Consult Discharge Plan - Plan Referrals: Tate Franks MD [Primary Care Provider] -
[2018-03-28] MEDS: diazePAM 5 MG TABLET PO PRN (14:21)
[2018-03-29] MEDS: methylPREDNISolone 125 MG/2 ML VIAL IVP SCH ×2 (02:33→08:55)
[2018-03-29] MEDS: Ipratropium/Albuterol Neb 3 ML IH SCH ×2 (04:15→07:52)
[2018-03-29] MEDS: Acetaminophen 325 MG TABLET PO PRN (05:11)
[2018-03-29] MEDS: Ondansetron 4 MG/2 ML VIAL IVP PRN (05:14)
--- NOTE | 2018-03-29 06:38 | Electrocardiograph Report ---
[place] [id number] Test Date: 2018-03-28 Pat Name: Ashley Bautista Department: 114 Room: [facility] Gender: F [employer]: : [id number] Requested By: Garima Acuna Order Number: [id number] Reading MD: Lew Coats Measurements Intervals Abrams Rate: 122 P: 64 MI: 147 QRS: -11 QRSD: 74 T: 69 QT: 319 QTc: 391 Interpretive Statements SINUS TACHYCARDIA WITH FREQUENT VENTRICULAR PREMATURE COMPLEXES LOW QRS VOLTAGE IN EXTREMITY LEADS Poor R wave progression BASELINE ARTIFACT, REPEAT EKG BASELINE ARTIFACT COMPLICATES ACCURATE INTERPRETATION Electronically Signed On 03-29-2018 6:36:29 EDT by Lew Coats
[2018-03-29 07:11] VITALS: BP 130/82
[2018-03-29] MEDS: Magnesium Oxide 400 MG TABLET PO SCH (08:55)
--- NOTE | 2018-03-29 10:15 | Discharge Summary ---
- NOTES TO OUTPATIENT PROVIDER Notes to Outpatient Provider: Patient admitted with acute on chronic respiratory failure and COPD exacerbation. Was treated with steroids and bronchodilators with slow improvement in her clinical condition. She is currently back on her baseline oxygen and is stable to be discharged. She does not wish to go to rehabilitation or have home health at this time. She will be discharged on a prednisone. She has received azithromycin for 3 days. Date of Encounter: 03/29/18 Time of Encounter: 10:11 - Discharge Diagnosis (1) COPD exacerbation Priority: Primary Status: Acute (2) HTN (hypertension) Priority: Secondary Status: Chronic Qualifiers: Hypertension type: essential hypertension Qualified Code(s): I10 - Essential (primary) hypertension (3) GERD (gastroesophageal reflux disease) Priority: Secondary Status: Chronic Qualifiers: Esophagitis presence: without esophagitis Qualified Code(s): K21.9 - Gastro -esophageal reflux disease without esophagitis (4) Tachycardia Priority: Secondary Status: Acute (5) CHF (congestive heart failure) Priority: Secondary Status: Chronic Qualifiers: Heart failure type: diastolic Heart failure chronicity: chronic Qualified Code(s): I50.32 - Chronic diastolic (congestive) heart failure (6) Hypomagnesemia Priority: Secondary Status: Acute Hospital course: Ms. Bautista is a 67 year old female patient with history of COPD, gastroesophageal reflux disease, hypertension and congestive heart failure was admitted with acute on chronic respiratory failure and COPD exacerbation. She was treated with steroids and bronchodilators with slow improvement in her clinical condition. She is currently back on her baseline oxygen and is stable to be discharged. She does not wish to go to rehabilitation or have home health at this time. She will be discharged on a prednisone taper. She has received azithromycin for 3 days. She has been having sinus tachycardia and ventricular bigeminy. Recommended increasing dosage of metoprolol but patient does not wish to do so. I did send a new prescription for the same in case she changes her mind. Discharge discussed with: patient, nurse - Time Spent with Patient Total time spent providing and/or coordinating discharge services: Greater than 30 minutes (35 min) - Discharge Medications Prescriptions: Metoprolol [Lopressor] 25 mg PO BID #30 tablet predniSONE [PredniSONE] 10 mg PO DAILY 8 Days tablet Home Medications: Albuterol Sulfate [Proair Hfa] 2 puff IH Q4HR PRN 03/26/18 [History] Beclomethasone Diprop 80mcg [QVAR 80 mcg] 2 puff IH BID 03/26/18 [History] Docusate [Colace] 300 mg PO BID 03/26/18 [History] FentaNYL PATCH [Duragesic] 75 mcg TD Q72H 03/26/18 [History] Guaifenesin [Mucinex] 600 mg PO BID PRN 03/26/18 [History] Ipratropium/Albuterol Neb [Duoneb] 3 ml IH Q4HR 03/26/18 [History] Omeprazole [PriLOSEC] 40 mg PO DAILY 03/26/18 [History] Ondansetron HCl [Zofran] 4 mg PO TID PRN 03/26/18 [History] Dicyclomine [Bentyl] 20 mg PO TID 03/27/18 [History] diazePAM [Valium] 2 mg PO DAILY 03/27/18 [History] Metoprolol [Lopressor] 25 mg PO BID #30 tablet 03/29/18 [Rx] predniSONE [PredniSONE] 10 mg PO DAILY 8 Days tablet 03/29/18 [Rx] Allergies/Adverse Reactions: 3 Allergy/AdvReac Type Severity Reaction Status Date / Time aspirin Allergy Hives Verified 09/25/17 11:53 cefpodoxime [From Vantin] Allergy Hives Verified 09/25/17 11:53 Cephalosporins Allergy Hives Verified 09/25/17 11:53 ciprofloxacin [From Cipro] Allergy Hives Verified 09/25/17 11:53 diltiazem [From Cardizem] Allergy Hives Verified 09/25/17 12:21 hydrocodone Allergy Hives Verified 09/25/17 11:53 moxifloxacin Allergy Hives Verified 09/25/17 11:53 propoxyphene Allergy Hives Verified 09/25/17 11:53 sodium bicarbonate Allergy Hives Verified 09/25/17 11:53 Sulfa (Sulfonamide Allergy Hives Verified 09/25/17 11:53 Antibiotics) tramadol Allergy Hives Verified 09/25/17 11:53 beta-lactam Allergy Hives Uncoded 09/25/17 11:53 cetpodoxime Allergy Hives Uncoded 09/25/17 11:53 iv dye Allergy See Uncoded 09/25/17 12:20 Comments multivitamins Allergy Hives Uncoded 09/25/17 11:53 Date of admission: 03/27/18 00:28 Primary care physician: Tate Franks MD Consults: 03/27/18 12:02 Consult to [employer]inter [CONS] Routine Reason for SW Consult: discharge planning Discharging clinician: Hyacinth Nguyễn Anticipated date of discharge: 03/29/18 - Constitutional Vitals: Temp Pulse Resp BP Pulse Ox 98.4 F 116 18 130/82 96 03/29/18 07:09 03/29/18 07:09 03/29/18 07:54 03/29/18 07:09 03/29/18 07:54 General appearance: Present: A&O X 3 - Neck Neck exam general surgery: Present: supple, trachea midline. Absent: lymphadenopathy - Respiratory Respiratory exam: Present: decreased breath sounds (at both bases), prolonged expiratory phase, wheezes (mild expiratory). Absent: accessory muscle use, rales, rhonchi - Cardiovascular Cardiovascular exam: Present: RRR, +S1, +S2. Absent: diastolic murmur, gallop, rubs, systolic murmur - GI/Abdominal GI/Abdominal exam: Present: normal bowel sounds, soft, no peritoneal signs. Absent: distended, tenderness - Extremities Exam Extremities exam: Present: warm, radial pulses palpable and symmetrical. Absent : calf tenderness, cyanotic, pedal edema - Patient Status Disposition: Home, Self-Care Condition: Good Functional capacity at discharge: uses cane/walker Overall status at discharge: patient is progressing back to baseline - Discharge Instructions Instructions: Atrial Fibrillation (DC), Acute Respiratory Distress Syndrome (DC ), Chronic Obstructive Pulmonary Disease (DC) Follow Up With: Tate Franks MD [Primary Care Provider] - (in 1-2 weeks) - Diet and Activity Activity: increase activity as tolerated, wear oxygen at all times Diet: low fat, low cholesterol, low salt diet
[2018-03-29] MEDS: diazePAM 5 MG TABLET PO PRN (11:16)
== END 2018-03-29 11:45 | disposition home or self-care (01) | DRG 871 ==
LOC: EMEROO 20:31 → 3NENU 20:31 → SUATTDRO 03-27 00:28 → 3NENU 03-27 00:55
PROVIDERS: ADMIT Internal Medicine; ATTEND Internal Medicine

== ENCOUNTER 2018-08-15 16:00 | Inpatient (IN) ==
[~2018-08-15 16:00] MED LIST: *HR* Midazolam HCl 5 MG/5 ML VIAL IVP ONE
[2018-08-15] MEDS ORDERED: *HR* Dextrose 50 % in Water (Syg) 50 ML SYRINGE ONE (16:05)
[2018-08-15] MEDS ORDERED: 0.9 % Sodium Chloride 1,000 ML IVC ONE ×2 (16:25→22:09)
[2018-08-15] MEDS ORDERED: 0.9 % Sodium Chloride 1,000 ML ONE (16:27)
--- NOTE | 2018-08-15 16:32 | Emergency Department Note ---
Disposition Clinical Impression: Septic shock, Altered level of consciousness Acute renal failure (ARF) Qualifiers: Acute renal failure type: unspecified Qualified Code(s): N17.9 - Acute kidney failure, unspecified Disposition: Admitted As Inpatient Condition: Critical General Adult HPI - General Chief complaint: ED Altered Mental Status Stated complaint: Low blood sugar Time Seen by Provider: 08/15/18 16:07 Source: EMS Limitations: altered mental status Nursing Notes Reviewed: Yes Vital Signs Reviewed: Yes - History of Present Illness HPI Narrative: Patient is a 5-year-old female past medical history of CHF, COPD, CAD, renal disease and thyroid disease presents to the emergency department for evaluation by squad for altered mental status. According to the squad and route patient had a glucose that was in the teens. Upon arrival they administered one amp of D50. Patient's came easier to arouse however still remains somewhat somnolent. According to family over the past 48 hours the patient has been more agitated than usual. According to the who lives at home with the patient she states that the patient has not been eating as much as usual in the past 24 hours. Physician I have anything for breakfast this morning. Denies that the patient is on any type of diabetes medication or insulin. Pain Scale: 0 - Related Data Home Medications Medication Instructions Recorded Confirmed Albuterol Sulfate [Proair Hfa] 2 puff IH Q4HR PRN 03/26/18 08/15/18 Beclomethasone Diprop 80mcg [QVAR 2 puff IH BID 03/26/18 08/15/18 80 mcg] Docusate [Colace] 200 mg PO BID 03/26/18 08/15/18 FentaNYL PATCH [Duragesic] 75 mcg TD Q72H 03/26/18 08/15/18 Guaifenesin [Mucinex] 600 mg PO BID PRN 03/26/18 08/15/18 Ipratropium/Albuterol Neb [Duoneb] 3 ml IH Q4HR 03/26/18 08/15/18 Omeprazole [PriLOSEC] 40 mg PO DAILY 03/26/18 08/15/18 Ondansetron HCl [Zofran] 4 mg PO TID PRN 03/26/18 08/15/18 Dicyclomine [Bentyl] 20 mg PO TID 03/27/18 08/15/18 diazePAM [Valium] 2 mg PO DAILY PRN 03/27/18 08/15/18 Acetaminophen [Tylenol] 500 mg PO Q6HR PRN 08/15/18 08/15/18 Albuterol Neb [Proventil Neb] 2.5 mg IH Q4HR 08/15/18 08/15/18 Carvedilol [Coreg] 3.125 mg PO BID 08/15/18 08/15/18 Nystatin POWDER [Nystop] 1 appl TP BID 08/15/18 08/15/18 Omeprazole [PriLOSEC] 40 mg PO DAILY 08/15/18 08/15/18 Triamcinolone Acetonide 15 gm TP BID 08/15/18 08/15/18 Previous Rx's Medication Instructions Recorded Metoprolol [Lopressor] 25 mg PO BID #30 tablet 03/29/18 Allergies Allergy/AdvReac Type Severity Reaction Status Date / Time aspirin Allergy Hives Verified 09/25/17 11:53 cefpodoxime [From Vantin] Allergy Hives Verified 09/25/17 11:53 Cephalosporins Allergy Hives Verified 09/25/17 11:53 ciprofloxacin [From Cipro] Allergy Hives Verified 09/25/17 11:53 diltiazem [From Cardizem] Allergy Hives Verified 09/25/17 12:21 hydrocodone Allergy Hives Verified 09/25/17 11:53 moxifloxacin Allergy Hives Verified 09/25/17 11:53 propoxyphene Allergy Hives Verified 09/25/17 11:53 sodium bicarbonate Allergy Hives Verified 09/25/17 11:53 Sulfa (Sulfonamide Allergy Hives Verified 09/25/17 11:53 Antibiotics) tramadol Allergy Hives Verified 09/25/17 11:53 beta-lactam Allergy Hives Uncoded 09/25/17 11:53 cetpodoxime Allergy Hives Uncoded 09/25/17 11:53 iv dye Allergy See Uncoded 09/25/17 12:20 Comments multivitamins Allergy Hives Uncoded 09/25/17 11:53 Limitations: ROS unobtainable due to patients medical condition Past Medical History - Past Medical History Attestation: Yes The following information was validated with the patient. Medical history: Reports: arthritis, asthma, CHF, COPD, coronary artery disease , GERD, glaucoma, renal disease, thyroid disease, other Surgical history: Reports: appendectomy Psychiatric history: Reports: anxiety, PTSD - Social History Smoking Status: Former smoker Smokeless Tobacco Status: No Alcohol use: Reports: rarely Drug use: Reports: none Physical Exam Patient is tachycardic, hypotensive in oxygen saturation is 95% on 15 L nonrebreather. She is arousable and answers questions appropriately, however she is difficult to arouse. - General Limitations: altered mental status General appearance: obtunded - Head Head exam: atraumatic, normocephalic, normal inspection - Eye Eye exam: Present: normal appearance, PERRL, EOMI - ENT ENT exam: normal exam, mucous membranes dry - Neck Neck exam: Present: normal inspection, full ROM, trachea midline. Absent: tenderness - Chest Chest inspection: Present: normal inspection, symmetric chest wall rise. Absent : tenderness - Respiratory Respiratory exam: Present: other (Diminished bilaterally) - Cardiovascular Cardiovascular exam: Present: normal rhythm, tachycardia, normal heart sounds, + S1, +S2 - Abdominal Exam Abdominal exam: Present: tenderness, normal bowel sounds - Extremities Exam Extremities exam: Present: normal inspection, full ROM. Absent: tenderness, pedal edema - Back Exam Back exam: Present: normal inspection, full ROM. Absent: tenderness, CVA tenderness (R), CVA tenderness (L) - Skin Skin exam: Present: warm, dry, intact, normal color Course Course Narrative: Patient arrived to the ER chart appeared to be in acute respiratory distress given that her oxygen saturation was 85% and she was on a nonrebreather mask at 15 L. A diffuse workup was ordered including a head CT tonight for possible stroke, chest x-ray and urine as well as basic labs to evaluate for infection, considering O at abnormalities, considering cardiac ideology initial EKG is nonischemic but tachycardic, we will also had an additional abscesses BNP and troponin. Patient's repeat glucose approximately 10 minutes after administering the D50 is 220/is no longer hypoglycemic she appears becoming more alert. We will continue to monitor and reevaluate. - Reevaluation(s) Reevaluation #1: Patient oxygen saturation has approved she is currently on 4 L nasal cannula oxygen improved with sitting the patient upwards. This point time the patient is able to maintain her airway as well as her oxygen saturations is no indications for BiPAP. On further discussions with the family said no and the family has any history of diabetes or takes a diabetes medications with unlikely the patient had an accident on ingestion of diabetes medications causing her hypoglycemia. Her does state that she has not had anything to eat over the past 24 hours states that the patient has become very agitated at times when she is agitated she will refuse to interact or eat. Time: 16:44 Reevaluation #2: Patient not responding to the IV fluids however has been complicated to give her full bolus given that she has one peripheral IV and requested that the nurse place an additional IV they are reporting difficulty. Ultimately the patient will require central line access given that she continued continues to possibly septic shock. Patient also has pending bedside echo to evaluate for right heart strain. Her CT scan is concerning for mesenteric ischemia. Patient was signed out to the night team with differential diagnosis of septic shock secondary to pneumonia versus mesenteric ischemia versus pulmonary embolism. The third shift lieutenant resident will be placing a central line for IV access in which showed continue with fluids and pressors if needed. We will also consult with general surgery with concerns for the mesenteric ischemia. Vital Signs Temperature 97.4 F L 08/15/18 16:09 Pulse Rate 113 08/15/18 16:09 Respiratory Rate 12 08/15/18 16:09 Blood Pressure 79/54 08/15/18 16:09 O2 Sat by Pulse Oximetry 90 08/15/18 16:09 Temperature 98.3 F 08/16/18 15:44 Pulse Rate 112 08/16/18 10:00 Respiratory Rate 16 08/16/18 15:20 Blood Pressure 86/56 08/16/18 15:20 O2 Sat by Pulse Oximetry 96 08/16/18 15:20 Oxygen Delivery Oxygen Delivery Simple Mask Medical Decision Making - Medical Records Medical records reviewed: Yes I reviewed the patient's medical records. - Lab Data Lab results reviewed: Yes I reviewed the patient's lab results. Result diagrams: 08/16/18 03:45 08/16/18 03:45 Lab Results 08/15/18 08/15/18 08/15/18 Range/Units 16:07 16:07 16:22 WBC (4.3-11.1) K/mcL RBC (3.82-4.97) M/mcL Hgb (11.5-15.4) g/dL Hct (35.3-44.9) % MCV (83.0-100.0) fL MCH (28.0-33.3) pg MCHC (31.6-35.5) g/dL RDW (11.5-14.5) % Plt Count (140-400) K/mcL MPV (9.4-12.4) fL Immature Gran % (0-4) % Seg Neutrophils % % Lymphocytes % % Monocytes % % Eosinophils % % Basophils % % Neutrophils # (1.6-8.9) K/mcL Lymphocytes # (0.6-4.6) K/mcL Monocytes # (0.0-1.3) K/mcL Eosinophils # (0.0-0.6) K/mcL Basophils # (0.0-0.2) K/mcL Nucleated RBCs/100 WBC (0) /100 WBC VBG pH (7.32-7.42) pH Units VBG pCO2 (41-51) mmHg VBG pO2 (25-50) mmHg VBG HCO3 (21-27) mEq/L Sodium (136-145) mEq/L Potassium (3.5-5.1) mEq/L Chloride (98-107) mEq/L Carbon Dioxide (23-29) mEq/L BUN (8-23) mg/dL Creatinine (0.60-1.20) mg/dL Est GFR ( Amer) (> 60) Est GFR (Non-Af Amer) (> 60) BUN/Creatinine Ratio (6-26) Glucose (70-105) mg/dL POC Glucose 15 L* 69 L 220 H (70-99) mg/dL Calculated Osmolality (280-300) Lactic Acid (0.5-2.2) mmol/L Calcium (8.6-10.3) mg/dL Phosphorus (2.7-4.5) mg/dL Magnesium (1.6-2.6) mg/dL Total Bilirubin (0.3-1.0) mg/dL Direct Bilirubin (0.0-0.2) mg/dL Indirect Bilirubin (0.0-1.2) mg/dL AST (13-39) Units/L ALT (7-52) Units/L Alkaline Phosphatase (34-104) Units/L Creatine Kinase (30-223) Units/L Troponin I (< 0.04) ng/mL B-Natriuretic Peptide (Less than 100) pg/mL Serum Total Protein (6.4-8.9) g/dL Albumin (3.5-5.7) g/dL Globulin (2.4-3.5) g/dL Albumin/Globulin Ratio (1.1-2.2) TSH (0.340-5.600) mcIU/mL Free T4 (0.70-2.00) ng/dl Free T3 (2.50-3.90) pg/mL Urine Color (Yellow) Urine Clarity (Clear) Urine pH (5.0-8.0) pH Units Ur Specific [place] (1.010-1.025) Urine Protein (Neg-Trace) mg/dL Urine Glucose (UA) (Normal) mg/dL Urine Ketones (Negative) mg/dL Urine Blood (Negative) Urine Nitrite (Negative) Urine Bilirubin (Negative) Urine Urobilinogen (Normal) mg/dL Ur Leukocyte Esterase (Negative) Urine Microscopic RBC (0-3) per hpf Urine Microscopic WBC (0-3) per hpf Ur Squamous Epith Cells (None-Few) per lpf Urine Bacteria (None-Few) per hpf Hyaline Casts (None-Few) per lpf Ur Culture Indicated? (NO) Ethyl Alcohol (Less than 10) mg/dL 08/15/18 08/15/18 08/15/18 Range/Units 16:58 16:58 16:58 WBC 14.4 H (4.3-11.1) K/mcL RBC 4.89 (3.82-4.97) M/mcL Hgb 15.0 (11.5-15.4) g/dL Hct 48.0 H (35.3-44.9) % MCV 98.2 (83.0-100.0) fL MCH 30.7 (28.0-33.3) pg MCHC 31.3 L (31.6-35.5) g/dL RDW 16.6 H (11.5-14.5) % Plt Count 183 (140-400) K/mcL MPV 12.3 (9.4-12.4) fL Immature Gran % 0.8 (0-4) % Seg Neutrophils % 85.0 % Lymphocytes % 3.9 % Monocytes % 10.1 % Eosinophils % 0.0 % Basophils % 0.2 % Neutrophils # 12.3 H (1.6-8.9) K/mcL Lymphocytes # 0.6 (0.6-4.6) K/mcL Monocytes # 1.5 H (0.0-1.3) K/mcL Eosinophils # 0.0 (0.0-0.6) K/mcL Basophils # 0.0 (0.0-0.2) K/mcL Nucleated RBCs/100 WBC 0.1 H (0) /100 WBC VBG pH (7.32-7.42) pH Units VBG pCO2 (41-51) mmHg VBG pO2 (25-50) mmHg VBG HCO3 (21-27) mEq/L Sodium 132 L (136-145) mEq/L Potassium 5.6 H (3.5-5.1) mEq/L Chloride 91 L (98-107) mEq/L Carbon Dioxide 20 L (23-29) mEq/L BUN 64 H (8-23) mg/dL Creatinine 2.64 H (0.60-1.20) mg/dL Est GFR ( Amer) 22 L (> 60) Est GFR (Non-Af Amer) 18 L (> 60) BUN/Creatinine Ratio 24 (6-26) Glucose 171 H (70-105) mg/dL POC Glucose (70-99) mg/dL Calculated Osmolality 296 (280-300) Lactic Acid 7.5 H* (0.5-2.2) mmol/L Calcium 8.9 (8.6-10.3) mg/dL Phosphorus 8.5 H (2.7-4.5) mg/dL Magnesium 2.0 (1.6-2.6) mg/dL Total Bilirubin 1.8 H (0.3-1.0) mg/dL Direct Bilirubin 1.2 H (0.0-0.2) mg/dL Indirect Bilirubin 0.6 (0.0-1.2) mg/dL AST 121 H (13-39) Units/L ALT 59 H (7-52) Units/L Alkaline Phosphatase 88 (34-104) Units/L Creatine Kinase 124 (30-223) Units/L Troponin I 0.10 H* (< 0.04) ng/mL B-Natriuretic Peptide (Less than 100) pg/mL Serum Total Protein 6.1 L (6.4-8.9) g/dL Albumin 3.1 L (3.5-5.7) g/dL Globulin 3.0 (2.4-3.5) g/dL Albumin/Globulin Ratio 1.0 L (1.1-2.2) TSH 6.068 H (0.340-5.600) mcIU/mL Free T4 1.03 (0.70-2.00) ng/dl Free T3 1.61 L (2.50-3.90) pg/mL Urine Color (Yellow) Urine Clarity (Clear) Urine pH (5.0-8.0) pH Units Ur Specific [place] (1.010-1.025) Urine Protein (Neg-Trace) mg/dL Urine Glucose (UA) (Normal) mg/dL Urine Ketones (Negative) mg/dL Urine Blood (Negative) Urine Nitrite (Negative) Urine Bilirubin (Negative) Urine Urobilinogen (Normal) mg/dL Ur Leukocyte Esterase (Negative) Urine Microscopic RBC (0-3) per hpf Urine Microscopic WBC (0-3) per hpf Ur Squamous Epith Cells (None-Few) per lpf Urine Bacteria (None-Few) per hpf Hyaline Casts (None-Few) per lpf Ur Culture Indicated? (NO) Ethyl Alcohol < 10 (Less than 10) mg/dL 08/15/18 08/15/18 08/15/18 Range/Units 16:58 17:08 17:41 WBC (4.3-11.1) K/mcL RBC (3.82-4.97) M/mcL Hgb (11.5-15.4) g/dL Hct (35.3-44.9) % MCV (83.0-100.0) fL MCH (28.0-33.3) pg MCHC (31.6-35.5) g/dL RDW (11.5-14.5) % Plt Count (140-400) K/mcL MPV (9.4-12.4) fL Immature Gran % (0-4) % Seg Neutrophils % % Lymphocytes % % Monocytes % % Eosinophils % % Basophils % % Neutrophils # (1.6-8.9) K/mcL Lymphocytes # (0.6-4.6) K/mcL Monocytes # (0.0-1.3) K/mcL Eosinophils # (0.0-0.6) K/mcL Basophils # (0.0-0.2) K/mcL Nucleated RBCs/100 WBC (0) /100 WBC VBG pH 7.25 L (7.32-7.42) pH Units VBG pCO2 46 (41-51) mmHg VBG pO2 90 H (25-50) mmHg VBG HCO3 20 L (21-27) mEq/L Sodium (136-145) mEq/L Potassium (3.5-5.1) mEq/L Chloride (98-107) mEq/L Carbon Dioxide (23-29) mEq/L BUN (8-23) mg/dL Creatinine (0.60-1.20) mg/dL Est GFR ( Amer) (> 60) Est GFR (Non-Af Amer) (> 60) BUN/Creatinine Ratio (6-26) Glucose (70-105) mg/dL POC Glucose 136 H (70-99) mg/dL Calculated Osmolality (280-300) Lactic Acid (0.5-2.2) mmol/L Calcium (8.6-10.3) mg/dL Phosphorus (2.7-4.5) mg/dL Magnesium (1.6-2.6) mg/dL Total Bilirubin (0.3-1.0) mg/dL Direct Bilirubin (0.0-0.2) mg/dL Indirect Bilirubin (0.0-1.2) mg/dL AST (13-39) Units/L ALT (7-52) Units/L Alkaline Phosphatase (34-104) Units/L Creatine Kinase (30-223) Units/L Troponin I (< 0.04) ng/mL B-Natriuretic Peptide 4439 H (Less than 100) pg/mL Serum Total Protein (6.4-8.9) g/dL Albumin (3.5-5.7) g/dL Globulin (2.4-3.5) g/dL Albumin/Globulin Ratio (1.1-2.2) TSH (0.340-5.600) mcIU/mL Free T4 (0.70-2.00) ng/dl Free T3 (2.50-3.90) pg/mL Urine Color (Yellow) Urine Clarity (Clear) Urine pH (5.0-8.0) pH Units Ur Specific [place] (1.010-1.025) Urine Protein (Neg-Trace) mg/dL Urine Glucose (UA) (Normal) mg/dL Urine Ketones (Negative) mg/dL Urine Blood (Negative) Urine Nitrite (Negative) Urine Bilirubin (Negative) Urine Urobilinogen (Normal) mg/dL Ur Leukocyte Esterase (Negative) Urine Microscopic RBC (0-3) per hpf Urine Microscopic WBC (0-3) per hpf Ur Squamous Epith Cells (None-Few) per lpf Urine Bacteria (None-Few) per hpf Hyaline Casts (None-Few) per lpf Ur Culture Indicated? (NO) Ethyl Alcohol (Less than 10) mg/dL 08/15/18 08/15/18 08/15/18 Range/Units 19:05 19:39 20:07 WBC (4.3-11.1) K/mcL RBC (3.82-4.97) M/mcL Hgb (11.5-15.4) g/dL Hct (35.3-44.9) % MCV (83.0-100.0) fL MCH (28.0-33.3) pg MCHC (31.6-35.5) g/dL RDW (11.5-14.5) % Plt Count (140-400) K/mcL MPV (9.4-12.4) fL Immature Gran % (0-4) % Seg Neutrophils % % Lymphocytes % % Monocytes % % Eosinophils % % Basophils % % Neutrophils # (1.6-8.9) K/mcL Lymphocytes # (0.6-4.6) K/mcL Monocytes # (0.0-1.3) K/mcL Eosinophils # (0.0-0.6) K/mcL Basophils # (0.0-0.2) K/mcL Nucleated RBCs/100 WBC (0) /100 WBC VBG pH (7.32-7.42) pH Units VBG pCO2 (41-51) mmHg VBG pO2 (25-50) mmHg VBG HCO3 (21-27) mEq/L Sodium (136-145) mEq/L Potassium (3.5-5.1) mEq/L Chloride (98-107) mEq/L Carbon Dioxide (23-29) mEq/L BUN (8-23) mg/dL Creatinine (0.60-1.20) mg/dL Est GFR ( Amer) (> 60) Est GFR (Non-Af Amer) (> 60) BUN/Creatinine Ratio (6-26) Glucose (70-105) mg/dL POC Glucose 113 H (70-99) mg/dL Calculated Osmolality (280-300) Lactic Acid 5.9 H* (0.5-2.2) mmol/L Calcium (8.6-10.3) mg/dL Phosphorus (2.7-4.5) mg/dL Magnesium (1.6-2.6) mg/dL Total Bilirubin (0.3-1.0) mg/dL Direct Bilirubin (0.0-0.2) mg/dL Indirect Bilirubin (0.0-1.2) mg/dL AST (13-39) Units/L ALT (7-52) Units/L Alkaline Phosphatase (34-104) Units/L Creatine Kinase (30-223) Units/L Troponin I (< 0.04) ng/mL B-Natriuretic Peptide (Less than 100) pg/mL Serum Total Protein (6.4-8.9) g/dL Albumin (3.5-5.7) g/dL Globulin (2.4-3.5) g/dL Albumin/Globulin Ratio (1.1-2.2) TSH (0.340-5.600) mcIU/mL Free T4 (0.70-2.00) ng/dl Free T3 (2.50-3.90) pg/mL Urine Color Dark Yellow (Yellow) Urine Clarity Cloudy A (Clear) Urine pH 5.0 (5.0-8.0) pH Units Ur Specific [place] 1.018 (1.010-1.025) Urine Protein 30 H (Neg-Trace) mg/dL Urine Glucose (UA) Normal (Normal) mg/dL Urine Ketones Negative (Negative) mg/dL Urine Blood Moderate H (Negative) Urine Nitrite Negative (Negative) Urine Bilirubin Small H (Negative) Urine Urobilinogen Normal (Normal) mg/dL Ur Leukocyte Esterase Negative (Negative) Urine Microscopic RBC 0-3 (0-3) per hpf Urine Microscopic WBC 0-3 (0-3) per hpf Ur Squamous Epith Cells None Seen (None-Few) per lpf Urine Bacteria None Seen (None-Few) per hpf Hyaline Casts None Seen (None-Few) per lpf Ur Culture Indicated? NO (NO) Ethyl Alcohol (Less than 10) mg/dL - Radiology Data Radiology results reviewed: Yes I reviewed the patient's radiology results. Head CT 08/15/18 16:26 IMPRESSION: 1. New subacute to less likely chronic appearing infarction in the left parietal lobe near the occipital lobe. Critical results were called by Dr. Frederick Nascimento MD to Palomo Odonnell on 08/15/2018 at 18:08. 2. Increased mild cerebral atrophy with minimal chronic small vessel ischemic changes. D/ / Ferderick Nascimento MD / Frederick Nascimento MD Interpreting Provider: Frederick Nascimento MD Abdomen/Pelvis CT 08/15/18 16:46 IMPRESSION: Right pleural effusion with dependent right lower lung airspace disease, likely atelectasis. Pneumonia cannot be excluded. Interval development mesenteric edema, anasarca and small amount of free pelvic fluid. Cholelithiasis. Urinary bladder stones. D/ / Sofi Brar Cha, MD / Sofi Brar Cha, MD Interpreting Provider: Sofi Brar Cha, MD Chest CT 08/15/18 17:48 IMPRESSION: 1. Near complete collapse of the right middle lobe and partial collapse of the dependent right lower lobe potentially with superimposed pneumonia or aspiration. 2. Secretions in the trachea and possibly within bronchi of the right middle and right lower lobes, and associated mild to moderate bronchial wall thickening in the right lower lobe. The findings may be related to bronchitis or aspiration. 3. Small to moderate right and trace left pleural effusions. 4. Severe centrilobular emphysema. 5. Questionable interstitial edema. D/ / Frederick Nascimento MD / Frederick Nascimento MD Interpreting Provider: Frederick Nascimento MD Echocardiogram 08/15/18 20:49 Impressions: Findings: ADDENDUM: 08/16/18 1206 Impressions: Technically sub-optimal due to clinical status. Moderately dilated dilated right ventricle. Moderate RV dysfunction right ventricular hypokinesis. Trileaflet aortic valve. LVEF 70%. Hyperdynamic, with flattened septum Findings communicated to ordering ER physician, Dr. Jay, at 9:46pm 08/15/2018 Left Ventricular Wall Motion: Rest Echo Findings All wall segments showed normal motion. Findings: Study Quality * Technically sub-optimal due to clinical status. Right Ventricle * Moderately dilated dilated right ventricle. * Moderate RV dysfunction right ventricular hypokinesis. Aortic Valve * Trileaflet aortic valve. * Trileaflet aortic valve with normal function. * No aortic regurgitation. * No aortic stenosis. Left Ventricle * LVEF 70%. * hyperdynamic, with flattened septum Tricuspid Valve * Normal tricuspid valve structure and function. * No tricuspid stenosis. * No tricuspid regurgitation. Mitral Valve * Normal mitral valve structure and function. * No mitral regurgitation. * No mitral stenosis. Chest X-Ray 08/15/18 22:04 IMPRESSION: 1. Endotracheal tube is in place, tip 2.1 cm superior to the alexis. NG tube extends below the left hemidiaphragm, into the upper abdomen, tip overlying the expected level of the stomach, right upper quadrant. 2. Technically limited exam greatly rotated rightward resulting in pendulous left breast shadowing over the left hemithorax. 3. Cardiomegaly. 4. No pleural effusion or pneumothorax is evident. D/ / Raul Long / Raul Long Interpreting Provider: Raul Long X-Ray 08/15/18 22:04 IMPRESSION: Enteric tube in place as above. D/ / Sofi Brar Cha, MD / Sofi Brar Cha, MD Interpreting Provider: Sofi Brar Cha, MD Ankle CT 08/16/18 09:45 IMPRESSION: 1. Nonspecific diffuse edematous changes with severe muscular atrophy. No evidence of a soft tissue abscess. 2. No soft tissue gas foci to suggest a necrotizing infection. 3. Severe aggressive osteopenia of the ankle and foot with normal alignment. There is no CT evidence of osteomyelitis or septic arthropathy. No acute osseous abnormality. D/ / 08/16/2018 13:40:45 Chava Bay MD / noe Interpreting Provider: Chava Bay MD Foot CT 08/16/18 09:45 IMPRESSION: 1. Nonspecific diffuse edematous changes with severe muscular atrophy. No evidence of a soft tissue abscess. 2. No soft tissue gas foci to suggest a necrotizing infection. 3. Severe aggressive osteopenia of the ankle and foot with normal alignment. There is no CT evidence of osteomyelitis or septic arthropathy. No acute osseous abnormality. D/ / 08/16/2018 13:40:45 Chava Bay MD / noe Interpreting Provider: Chava Bay MD - EKG Data EKG #1 EKG attestation: Yes I reviewed and interpreted this EKG. EKG results narrative: EKG done at 16:17 shows sinus tachycardia rate of 113 bpm. Normal axis. Intervals within normal limits. No signs of ST elevation, ST depression or Q waves present.
--- NOTE | 2018-08-15 16:36 | Emergency Department Note ---
Disposition Clinical Impression: Septic shock, Altered level of consciousness Acute renal failure (ARF) Qualifiers: Acute renal failure type: unspecified Qualified Code(s): N17.9 - Acute kidney failure, unspecified Disposition: Admitted As Inpatient Condition: Critical Referrals: Tate Franks MD [Primary Care Provider] - Forms: ED Satisfaction Letter General Adult HPI - General Chief complaint: ED Altered Mental Status Stated complaint: Low blood sugar Time Seen by Provider: 08/15/18 16:07 Source: EMS Limitations: altered mental status - History of Present Illness Pain Scale: 0 - Related Data Home Medications Medication Instructions Recorded Confirmed Albuterol Sulfate [Proair Hfa] 2 puff IH Q4HR PRN 03/26/18 08/15/18 Beclomethasone Diprop 80mcg [QVAR 2 puff IH BID 03/26/18 08/15/18 80 mcg] Docusate [Colace] 300 mg PO BID 03/26/18 08/15/18 FentaNYL PATCH [Duragesic] 75 mcg TD Q72H 03/26/18 08/15/18 Guaifenesin [Mucinex] 600 mg PO BID PRN 03/26/18 08/15/18 Ipratropium/Albuterol Neb [Duoneb] 3 ml IH Q4HR 03/26/18 08/15/18 Omeprazole [PriLOSEC] 40 mg PO DAILY 03/26/18 08/15/18 Ondansetron HCl [Zofran] 4 mg PO TID PRN 03/26/18 08/15/18 Dicyclomine [Bentyl] 20 mg PO TID 03/27/18 08/15/18 diazePAM [Valium] 2 mg PO DAILY PRN 03/27/18 08/15/18 Acetaminophen [Tylenol] 500 mg PO Q6HR PRN 08/15/18 08/15/18 Albuterol Neb [Proventil Neb] 2.5 mg IH Q4HR 08/15/18 08/15/18 Carvedilol [Coreg] 3.125 mg PO BID 08/15/18 08/15/18 Nystatin POWDER [Nystop] 1 appl TP BID 08/15/18 08/15/18 Omeprazole [PriLOSEC] 40 mg PO DAILY 08/15/18 08/15/18 Triamcinolone Acetonide 15 gm TP BID 08/15/18 08/15/18 Previous Rx's Medication Instructions Recorded Metoprolol [Lopressor] 25 mg PO BID #30 tablet 03/29/18 Allergies Allergy/AdvReac Type Severity Reaction Status Date / Time aspirin Allergy Hives Verified 09/25/17 11:53 cefpodoxime [From Vantin] Allergy Hives Verified 09/25/17 11:53 Cephalosporins Allergy Hives Verified 09/25/17 11:53 ciprofloxacin [From Cipro] Allergy Hives Verified 09/25/17 11:53 diltiazem [From Cardizem] Allergy Hives Verified 09/25/17 12:21 hydrocodone Allergy Hives Verified 09/25/17 11:53 moxifloxacin Allergy Hives Verified 09/25/17 11:53 propoxyphene Allergy Hives Verified 09/25/17 11:53 sodium bicarbonate Allergy Hives Verified 09/25/17 11:53 Sulfa (Sulfonamide Allergy Hives Verified 09/25/17 11:53 Antibiotics) tramadol Allergy Hives Verified 09/25/17 11:53 beta-lactam Allergy Hives Uncoded 09/25/17 11:53 cetpodoxime Allergy Hives Uncoded 09/25/17 11:53 iv dye Allergy See Uncoded 09/25/17 12:20 Comments multivitamins Allergy Hives Uncoded 09/25/17 11:53 Past Medical History - Past Medical History Medical history: Reports: arthritis, asthma, CHF, COPD, coronary artery disease , GERD, glaucoma, renal disease, thyroid disease, other Surgical history: Reports: appendectomy Psychiatric history: Reports: anxiety, PTSD - Social History Smoking Status: Former smoker Smokeless Tobacco Status: No Alcohol use: Reports: rarely Drug use: Reports: none Physical Exam - General Limitations: altered mental status General appearance: obtunded Course Vital Signs Temperature 97.4 F L 08/15/18 16:09 Pulse Rate 113 08/15/18 16:09 Respiratory Rate 12 08/15/18 16:09 Blood Pressure 79/54 08/15/18 16:09 O2 Sat by Pulse Oximetry 90 08/15/18 16:09 Temperature 97.4 F L 08/15/18 16:09 Pulse Rate 110 08/15/18 19:10 Respiratory Rate 16 08/15/18 19:10 Blood Pressure 84/59 08/15/18 19:10 O2 Sat by Pulse Oximetry 92 08/15/18 19:10 Oxygen Delivery Oxygen Delivery Nasal Cannula Medical Decision Making - Lab Data Result diagrams: 08/15/18 16:58 08/15/18 16:58 Lab Results 08/15/18 08/15/18 08/15/18 Range/Units 16:58 16:58 16:58 WBC 14.4 H (4.3-11.1) K/mcL RBC 4.89 (3.82-4.97) M/mcL Hgb 15.0 (11.5-15.4) g/dL Hct 48.0 H (35.3-44.9) % MCV 98.2 (83.0-100.0) fL MCH 30.7 (28.0-33.3) pg MCHC 31.3 L (31.6-35.5) g/dL RDW 16.6 H (11.5-14.5) % Plt Count 183 (140-400) K/mcL MPV 12.3 (9.4-12.4) fL Immature Gran % 0.8 (0-4) % Seg Neutrophils % 85.0 % Lymphocytes % 3.9 % Monocytes % 10.1 % Eosinophils % 0.0 % Basophils % 0.2 % Neutrophils # 12.3 H (1.6-8.9) K/mcL Lymphocytes # 0.6 (0.6-4.6) K/mcL Monocytes # 1.5 H (0.0-1.3) K/mcL Eosinophils # 0.0 (0.0-0.6) K/mcL Basophils # 0.0 (0.0-0.2) K/mcL Nucleated RBCs/100 WBC 0.1 H (0) /100 WBC VBG pH (7.32-7.42) pH Units VBG pCO2 (41-51) mmHg VBG pO2 (25-50) mmHg VBG HCO3 (21-27) mEq/L Sodium 132 L (136-145) mEq/L Potassium 5.6 H (3.5-5.1) mEq/L Chloride 91 L (98-107) mEq/L Carbon Dioxide 20 L (23-29) mEq/L BUN 64 H (8-23) mg/dL Creatinine 2.64 H (0.60-1.20) mg/dL Est GFR ( Amer) 22 L (> 60) Est GFR (Non-Af Amer) 18 L (> 60) BUN/Creatinine Ratio 24 (6-26) Glucose 171 H (70-105) mg/dL Calculated Osmolality 296 (280-300) Lactic Acid 7.5 H* (0.5-2.2) mmol/L Calcium 8.9 (8.6-10.3) mg/dL Total Bilirubin 1.8 H (0.3-1.0) mg/dL Direct Bilirubin 1.2 H (0.0-0.2) mg/dL Indirect Bilirubin 0.6 (0.0-1.2) mg/dL AST 121 H (13-39) Units/L ALT 59 H (7-52) Units/L Alkaline Phosphatase 88 (34-104) Units/L Troponin I 0.10 H* (< 0.04) ng/mL B-Natriuretic Peptide (Less than 100) pg/mL Serum Total Protein 6.1 L (6.4-8.9) g/dL Albumin 3.1 L (3.5-5.7) g/dL Globulin 3.0 (2.4-3.5) g/dL Albumin/Globulin Ratio 1.0 L (1.1-2.2) TSH 6.068 H (0.340-5.600) mcIU/mL Ethyl Alcohol < 10 (Less than 10) mg/dL 08/15/18 08/15/18 Range/Units 16:58 17:08 WBC (4.3-11.1) K/mcL RBC (3.82-4.97) M/mcL Hgb (11.5-15.4) g/dL Hct (35.3-44.9) % MCV (83.0-100.0) fL MCH (28.0-33.3) pg MCHC (31.6-35.5) g/dL RDW (11.5-14.5) % Plt Count (140-400) K/mcL MPV (9.4-12.4) fL Immature Gran % (0-4) % Seg Neutrophils % % Lymphocytes % % Monocytes % % Eosinophils % % Basophils % % Neutrophils # (1.6-8.9) K/mcL Lymphocytes # (0.6-4.6) K/mcL Monocytes # (0.0-1.3) K/mcL Eosinophils # (0.0-0.6) K/mcL Basophils # (0.0-0.2) K/mcL Nucleated RBCs/100 WBC (0) /100 WBC VBG pH 7.25 L (7.32-7.42) pH Units VBG pCO2 46 (41-51) mmHg VBG pO2 90 H (25-50) mmHg VBG HCO3 20 L (21-27) mEq/L Sodium (136-145) mEq/L Potassium (3.5-5.1) mEq/L Chloride (98-107) mEq/L Carbon Dioxide (23-29) mEq/L BUN (8-23) mg/dL Creatinine (0.60-1.20) mg/dL Est GFR ( Amer) (> 60) Est GFR (Non-Af Amer) (> 60) BUN/Creatinine Ratio (6-26) Glucose (70-105) mg/dL Calculated Osmolality (280-300) Lactic Acid (0.5-2.2) mmol/L Calcium (8.6-10.3) mg/dL Total Bilirubin (0.3-1.0) mg/dL Direct Bilirubin (0.0-0.2) mg/dL Indirect Bilirubin (0.0-1.2) mg/dL AST (13-39) Units/L ALT (7-52) Units/L Alkaline Phosphatase (34-104) Units/L Troponin I (< 0.04) ng/mL B-Natriuretic Peptide 4439 H (Less than 100) pg/mL Serum Total Protein (6.4-8.9) g/dL Albumin (3.5-5.7) g/dL Globulin (2.4-3.5) g/dL Albumin/Globulin Ratio (1.1-2.2) TSH (0.340-5.600) mcIU/mL Ethyl Alcohol (Less than 10) mg/dL Critical Care Time Critical Care Time: Yes Total Critical Care Time: 60 Attestation: 60 minutes of critical care time were spent with the patient who is in septic shock, altered level of consciousness, acute renal failure, multiple medications as well as toy consultant calls and discussion with family. 1921 Attestation Statement - Attestation Attestation: I examined this patient and my medical decision-making was reviewed with the HOME ORGANIZER/PA/Advanced Practice Nurse/Resident Physician. I agree with the documented findings, disposition and treatment plan as described except to the extent set forth below. I did see the patient immediately upon arrival and also spoke with paramedics who presented to the house because of altered mental status and decreased mental status and they did get a blood sugar on the way here which was 20 and minimally saw the patient we did immediately administer D50 and at the same time also rechecked the blood sugar here which was 15. Patient does not have diabetes and neighter does her . She lives at home with her ex- and on the 2 of them live there. I did speak with the daughter. The daughter and no one else in the family has diabetes or takes diabetic medications. The patient also is hypotensive and hypoxemic and further evaluation will ensue with lab tests, including lactate, head CT, IV fluids will be given, I did review the EKG showing sinus tachycardia with a rate of 113 bpm which is a low voltage EKG and we will do a bedside cardiac ultrasound emergently. The patient will be watched closely. She did improve with the D50 at that point when her name was called she did pick her head up and open her eyes however though she is significantly improved she still having decreased level of consciousness. With the low blood pressure we are concerned about possible sepsis, head CT will also be done, the patient's blood sugar did improve and is now in the 200s after the D50 and this will be monitored. 1634 I did see the patient again about 20 minutes ago and we will check a blood sugar again because she is again unresponsive. I spoke with her who said that she had decreased consciousness to the entire day yesterday so likely has a prolonged episode of hypoglycemia could have some permanent brain changes because of that. Her blood pressure is improved but she does remain hypotensive. Chest x-ray does show right pleural effusion and further evaluation per CT scan of the chest. 1833 Did see the pt again and bedside US shows dilated RV and PE with right UE swelling. US and stat ECHO ordered as well as ATB for sepsis and I spoke with critical care and coordinated ATB inc meropenem, azithromycin, vanc. 1910
[2018-08-15 17:10] LABS: Basophils % 0.2 %; Immature Granulocytes % 0.8 % (0-4); Lymphocytes # 0.6 K/mcL (0.6-4.6); Lymphocytes % 3.9 %; Mean Corpuscular HGB Conc 31.3 g/dL (31.6-35.5); Mean Corpuscular Hemoglobin 30.7 pg (28.0-33.3); Mean Corpuscular Volume 98.2 fL (83.0-100.0); Mean Platelet Volume 12.3 fL (9.4-12.4); Monocytes # 1.5 K/mcL (0.0-1.3); Monocytes % 10.1 %; Neutrophils # 12.3 K/mcL (1.6-8.9); Nucleated Red Blood Cells 0.1 /100 WBC (0); Platelet Count 183 K/mcL (140-400); Red Blood Count 4.89 M/mcL (3.82-4.97); Red Cell Distribution Width 16.6 % (11.5-14.5)
[2018-08-15 17:14] LABS: VBG HCO3 20 mEq/L (21-27); VBG PCO2 46 mmHg (41-51); VBG PH 7.25 pH Units (7.32-7.42); VBG PO2 90 mmHg (25-50)
[2018-08-15 17:35] LABS: Alanine Aminotransferase 59 Units/L (7-52); Albumin 3.1 g/dL (3.5-5.7); Alkaline Phosphatase 88 Units/L (34-104); Aspartate Amino Transferase 121 Units/L (13-39); BUN/Creatinine Ratio 24 (6-26); Bilirubin,Direct 1.2 mg/dL (0.0-0.2); Bilirubin,Indirect 0.6 mg/dL (0.0-1.2); Bilirubin,Total 1.8 mg/dL (0.3-1.0); Blood Urea Nitrogen 64 mg/dL (8-23); Calcium 8.9 mg/dL (8.6-10.3); Carbon Dioxide 20 mEq/L (23-29); Chloride 91 mEq/L (98-107); Ethanol < 10 mg/dL (Less than 10); Glucose 171 mg/dL (70-105); Osmolality,Calculated 296 (280-300); Potassium 5.6 mEq/L (3.5-5.1); Sodium 132 mEq/L (136-145); Total Protein 6.1 g/dL (6.4-8.9); eGFR For Non-African Americans 18 (> 60)
[2018-08-15 17:47] LABS: Thyroid Stimulating Hormone 6.068 mcIU/mL (0.340-5.600)
[2018-08-15] MEDS ORDERED: 0.9 % Sodium Chloride 500 ML IVC ONE (18:02)
[2018-08-15] MEDS ORDERED: Azithromycin 500 MG in D5% in Water 250 ML IVPB ONE (19:07)
[2018-08-15 19:29] LABS: Bilirubin,Urine Small (Negative); Blood,Urine Moderate (Negative); Clarity,Urine Cloudy (Clear); Color,Urine Dark Yellow (Yellow); Glucose,Urine (UA) Normal (Normal); Ketones,Urine Negative (Negative); Leukocyte Esterase,Urine Negative (Negative); Nitrite,Urine Negative (Negative); Protein,Urine 30 mg/dL (Neg-Trace); Specific Gravity,Urine 1.018 (1.010-1.025); Urobilinogen,Urine Normal (Normal)
[2018-08-15 19:33] LABS: Bacteria,Urine None Seen per hpf (None-Few); Hyaline Casts,Urine None Seen per lpf (None-Few); RBC,Urine 0-3 per hpf (0-3); Squamous Epithelial Cell,Urine None Seen per lpf (None-Few); WBC,Urine 0-3 per hpf (0-3)
--- NOTE | 2018-08-15 19:37 | Internal Med History&Physical ---
<Hay Rodriguez - Last Filed: 08/15/18 23:36> Date of Encounter: 08/15/18 Time of Encounter: 19:37 Internal Medicine - H&P: HPI Chief complaint: Low blood glucose Admitted From: Home History of present illness: Ms. Bautista is a 68 year old bed-ridden female with severe COPD on continuous 2.5L home O2, mucous plugging in lungs, HFpEF, CAD, GERD, and previous IVF filter who presented to the ED from home via EMS due to blood glucose level 15 and AMS. Family is at bedside and reports patient has not been eating for a few days, complaining of chills, anorexia, nausea, and abdominal pain for the past 2 days. She was alert and oriented yesterday evening but today it was confused. Patient's family reports she has been bed-bound for about 3 years due to history of colitis and left hip pain causing inability to walk. Patient's ex- reports she has not been urinating as much for a few days, is lethargic , and has increased swelling in her right arm, likely from preferring to lay on her right side. Patient did not report fever, CP, SOB, increased home oxygen requirements, aspiration, vomiting, diarrhea, melena, history of diabetes, or history of cellulitis. Case discussed in detail with patient's ex- who is her primary primary care pediatrician, both daughters, and grandsons. Family reports the patient's wishes were to be a full code, but she requested not to be on life support for a prolonged period of time. Past Med Surg Social Fam HX - Past Medical History Medical history: arthritis, asthma, CHF, COPD, coronary artery disease, CVA, GERD, glaucoma, renal disease, thyroid disease, other Additional medical history: Degenerative disk disease to back Psychiatric history: anxiety, PTSD - Past Surgical History Surgical History: appendectomy Additional surgical history: tubal - Social History Smoking Status: Former smoker (Quit in 2010) Smokeless Tobacco Status: No Alcohol use: rarely Drug use: none Current living situation: Home, With Family Activity Level: Bed bound Recent Out of Country Travel Within the Last 8 Weeks: No Exposure or Possible Exposure to Illness During Travel: No - Family History Father Living Status: Hx Family Cardiac Disorders: Yes Hx Family Respiratory Disorders: Yes (lung cancer) Hx Family Cancer: Yes Hx Family GI Disorders: No Hx Family Endocrine Disorder: No Hx Family Neuromuscular Disorders: No Hx Family Neurologic Disorders: No Hx Family HEENT Disorders: No Hx Family Autoimmune Disorders: No Mother Living Status: Hx Family Cardiac Disorders: No Hx Family Respiratory Disorders: Yes Hx Family Cancer: No Hx Family GI Disorders: No Hx Family Endocrine Disorder: Yes Hx Family Neuromuscular Disorders: No Hx Family Neurologic Disorders: No Hx Family HEENT Disorders: No Hx Family Autoimmune Disorders: No Sister Living Status: Still Living Hx Family Cardiac Disorders: Yes Hx Family Respiratory Disorders: Yes (COPD) Hx Family Cancer: Yes Hx Family GI Disorders: No Hx Family Endocrine Disorder: No Hx Family Neuromuscular Disorders: No Hx Family Neurologic Disorders: No Hx Family HEENT Disorders: No Hx Family Autoimmune Disorders: No Brother Living Status: Hx Family Cardiac Disorders: Yes Hx Family Respiratory Disorders: No Hx Family Cancer: Yes Hx Family GI Disorders: No Hx Family Endocrine Disorder: No Hx Family Neuromuscular Disorders: No Hx Family Neurologic Disorders: No Hx Family HEENT Disorders: No Hx Family Autoimmune Disorders: No Internal Medicine - H&P: Meds Albuterol Sulfate [Proair Hfa] 2 puff IH Q4HR PRN 03/26/18 [History] Beclomethasone Diprop 80mcg [QVAR 80 mcg] 2 puff IH BID 03/26/18 [History] Docusate [Colace] 200 mg PO BID 03/26/18 [History] FentaNYL PATCH [Duragesic] 75 mcg TD Q72H 03/26/18 [History] Guaifenesin [Mucinex] 600 mg PO BID PRN 03/26/18 [History] Ipratropium/Albuterol Neb [Duoneb] 3 ml IH Q4HR 03/26/18 [History] Omeprazole [PriLOSEC] 40 mg PO DAILY 03/26/18 [History] Ondansetron HCl [Zofran] 4 mg PO TID PRN 03/26/18 [History] Dicyclomine [Bentyl] 20 mg PO TID 03/27/18 [History] diazePAM [Valium] 2 mg PO DAILY PRN 03/27/18 [History] Metoprolol [Lopressor] 25 mg PO BID #30 tablet 03/29/18 [Rx] Acetaminophen [Tylenol] 500 mg PO Q6HR PRN 08/15/18 [History] Albuterol Neb [Proventil Neb] 2.5 mg IH Q4HR 08/15/18 [History] Carvedilol [Coreg] 3.125 mg PO BID 08/15/18 [History] Nystatin POWDER [Nystop] 1 appl TP BID 08/15/18 [History] Omeprazole [PriLOSEC] 40 mg PO DAILY 08/15/18 [History] Triamcinolone Acetonide 15 gm TP BID 08/15/18 [History] 3 Allergy/AdvReac Type Severity Reaction Status Date / Time aspirin Allergy Hives Verified 09/25/17 11:53 cefpodoxime [From Vantin] Allergy Hives Verified 09/25/17 11:53 Cephalosporins Allergy Hives Verified 09/25/17 11:53 ciprofloxacin [From Cipro] Allergy Hives Verified 09/25/17 11:53 diltiazem [From Cardizem] Allergy Hives Verified 09/25/17 12:21 hydrocodone Allergy Hives Verified 09/25/17 11:53 moxifloxacin Allergy Hives Verified 09/25/17 11:53 propoxyphene Allergy Hives Verified 09/25/17 11:53 sodium bicarbonate Allergy Hives Verified 09/25/17 11:53 Sulfa (Sulfonamide Allergy Hives Verified 09/25/17 11:53 Antibiotics) tramadol Allergy Hives Verified 09/25/17 11:53 beta-lactam Allergy Hives Uncoded 09/25/17 11:53 cetpodoxime Allergy Hives Uncoded 09/25/17 11:53 iv dye Allergy See Uncoded 09/25/17 12:20 Comments multivitamins Allergy Hives Uncoded 09/25/17 11:53 ROS unobtainable: due to mental status All Systems PM: A 10-system review of systems was performed and is negative for pertinent findings except as documented above in the HPI. - Constitutional Vitals: Temp Pulse Resp BP Pulse Ox 97.4 F L 110 16 84/59 92 08/15/18 16:09 08/15/18 19:10 08/15/18 19:10 08/15/18 19:10 08/15/18 19:10 General appearance: Present: cachectic Exam: Appears ill, Acute respiratory distress, cold, mottled color, Chronically ill- appearing, contractures - Head Head exam: Present: atraumatic, normocephalic - Eye Eye exam: Present: PERRL, sclera anicteric Pupils: Present: PERRL. Absent: unequal - ENT ENT exam: Present: mucous membranes dry (Edentulous) - Neck Neck exam general surgery: Present: full ROM, supple. Absent: tenderness, nuchal rigidity - Respiratory Respiratory exam: Present: decreased breath sounds, respiratory distress. Absent: CTAB - Cardiovascular Cardiovascular exam: Present: distant heart sounds, tachycardia - GI/Abdominal GI/Abdominal exam: Present: hypoactive bowel sounds, soft. Absent: distended, tenderness - Extremities Exam Extremities exam: Present: cyanotic. Absent: full ROM (contractures) - Back Exam Back exam: Present: normal inspection. Absent: paraspinal tenderness, tenderness - Neurological Exam Neurological exam: Present: altered, no focal deficits - Skin Skin exam: Present: cyanosis (mottled). Absent: normal color, warm Internal Med - H&P Results - Labs CBC & Chem 7: 08/15/18 22:35 08/15/18 22:35 Labs: Short CBC 08/15/18 Range/Units 16:58 WBC 14.4 H (4.3-11.1) K/mcL Hgb 15.0 (11.5-15.4) g/dL Hct 48.0 H (35.3-44.9) % Plt Count 183 (140-400) K/mcL Neutrophils # 12.3 H (1.6-8.9) K/mcL BMP 08/15/18 16:58 Sodium 132 L Potassium 5.6 H Chloride 91 L Carbon Dioxide 20 L BUN 64 H Creatinine 2.64 H Glucose 171 H Calcium 8.9 Cardiac Enzymes 08/15/18 Range/Units 16:58 Troponin I 0.10 H* (< 0.04) ng/mL Liver Function 08/15/18 Range/Units 16:58 Total Bilirubin 1.8 H (0.3-1.0) mg/dL Direct Bilirubin 1.2 H (0.0-0.2) mg/dL AST 121 H (13-39) Units/L ALT 59 H (7-52) Units/L Alkaline Phosphatase 88 (34-104) Units/L Albumin 3.1 L (3.5-5.7) g/dL Urine 08/15/18 Range/Units 19:05 Urine Color Dark Yellow (Yellow) Urine Clarity Cloudy A (Clear) Urine pH 5.0 (5.0-8.0) pH Units Ur Specific [place] 1.018 (1.010-1.025) Urine Protein 30 H (Neg-Trace) mg/dL Urine Glucose (UA) Normal (Normal) mg/dL - ABG Interpretation ABG results: 08/15/18 17:08 VBG pH 7.25 L VBG pCO2 46 VBG pO2 90 H VBG HCO3 20 L - Pulse Oximetry Interpretation Forehead O2 Sat by Pulse Oximetry: 95 (on 15 L nonrebreather mask) Actions taken: intubated - EKG Data -: EKG Interpreted by Myself EKG shows normal: sinus rhythm Rate: tachycardia - Impressions ITS Impressions Chest X-Ray 08/15/18 16:25 IMPRESSION: Limited study. Moderate right pleural effusion with underlying consolidation or mass not excluded. Questionable airspace opacity within the left lower lobe. D/ / Selvin Lowery MD / Selvin Lowery MD Interpreting Provider: Selvin Lowery MD Head CT 08/15/18 16:26 IMPRESSION: 1. New subacute to less likely chronic appearing infarction in the left parietal lobe near the occipital lobe. Critical results were called by Dr. Frederick Nascimento MD to Palomo Odonnell on 08/15/2018 at 18:08. 2. Increased mild cerebral atrophy with minimal chronic small vessel ischemic changes. D/ / Frederick Nascimento MD / Frederick Nascimento MD Interpreting Provider: Frederick Nascimento MD Abdomen/Pelvis CT 08/15/18 16:46 IMPRESSION: Right pleural effusion with dependent right lower lung airspace disease, likely atelectasis. Pneumonia cannot be excluded. Interval development mesenteric edema, anasarca and small amount of free pelvic fluid. Cholelithiasis. Urinary bladder stones. D/ / Sofi Brar Cha, MD / Sofi Brar Cha, MD Interpreting Provider: Sofi Brar Cha, MD Chest CT 08/15/18 17:48 IMPRESSION: 1. Near complete collapse of the right middle lobe and partial collapse of the dependent right lower lobe potentially with superimposed pneumonia or aspiration. 2. Secretions in the trachea and possibly within bronchi of the right middle and right lower lobes, and associated mild to moderate bronchial wall thickening in the right lower lobe. The findings may be related to bronchitis or aspiration. 3. Small to moderate right and trace left pleural effusions. 4. Severe centrilobular emphysema. 5. Questionable interstitial edema. D/ / Frederick Nascimento MD / Frederick Nascimento MD Interpreting Provider: Frederick Nascimento MD - Assessment and plan (1) Septic shock Current Visit: Yes Status: Acute Assessment and plan: Patient met septic shock criteria with hypothermia temperature 90.6 F, heart rate 113, RR 26, blood pressure 79/54 Patient was given sepsis IV fluid bolus Patient started on empiric antibiotics: Vancomycin, Merrem, Azithromycin, Flagyl (Day 1) Likely source of infection includes pneumonia versus mesenteric ischemia CT of the abdomen and pelvis revealed Interval development mesenteric edema, anasarca and small amount of free pelvic fluid. Blood cultures pending De-escalate antibiotics based on culture results Critical care consulted (2) Multiorgan failure Current Visit: Yes Status: Acute Assessment and plan: She with acute respiratory failure, severe COPD, hypotension, acute kidney injury, hypoperfusion, mottled appearance CT of the abdomen and pelvis revealed Interval development mesenteric edema, anasarca and small amount of free pelvic fluid. Patient evaluated by general surgeon for concern of ischemic bowel, not an operative candidate Case discussed in detail with patient's ex- who is her primary primary care pediatrician , both daughters, and grandsons. Family reports the patient's wishes were to be a full code, but she requested not to be on life support for a prolonged period of time. Condition remains guarded (3) Acute on chronic respiratory failure with hypoxia and hypercapnia Current Visit: Yes Status: Acute Assessment and plan: Patient with acute respiratory distress on exam despite 15 L nonrebreather mask , hypoxia, hypercapnia Patient wears between 2.5-3.5 L continuous home oxygen Patient endotracheally intubated Continue bronchodilators (4) Community acquired pneumonia Current Visit: Yes Status: Acute Assessment and plan: CT chest revealed near complete collapse of the right middle lobe and partial collapse of the dependent right lower lobe potentially with superimposed pneumonia or aspiration. Secretions in the trachea and possibly within bronchi of the right middle and right lower lobes, and associated mild to moderate bronchial wall thickening in the right lower lobe. The findings may be related to bronchitis or aspiration. Small to moderate right and trace left pleural effusions. Severe centrilobular emphysema. Patient started on empiric antibiotics: Vancomycin, Merrem, Azithromycin, Flagyl (Day 1) Likely source of infection includes pneumonia versus mesenteric ischemia Blood cultures pending De-escalate antibiotics based on culture results Critical care consulted Qualifiers: Laterality: unspecified laterality Qualified Code(s): J18.9 - Pneumonia, unspecified organism (5) CECI (acute kidney injury) Current Visit: Yes Status: Acute Assessment and plan: Patient developed acute any injury in the setting of septic shock, renal hypoperfusion, dehydration Given sepsis IV fluids Continue monitoring (6) Acute encephalopathy Current Visit: Yes Status: Acute Assessment and plan: She developed acute altered mental status the past [address] brain revealed new subacute to less likely chronic appearing infarction in the left parietal lobe near the occipital lobe. Increased mild cerebral atrophy with minimal chronic small vessel ischemic changes. (7) COPD (chronic obstructive pulmonary disease) Current Visit: Yes Status: Chronic Assessment and plan: CT chest revealed near complete collapse of the right middle lobe and partial collapse of the dependent right lower lobe potentially with superimposed pneumonia or aspiration. Secretions in the trachea and possibly within bronchi of the right middle and right lower lobes, and associated mild to moderate bronchial wall thickening in the right lower lobe. The findings may be related to bronchitis or aspiration. Small to moderate right and trace left pleural effusions. Severe centrilobular emphysema. Continue stress dose steroids and bronchodilators Qualifiers: COPD type: chronic bronchitis Chronic bronchitis type: unspecified Qualified Code(s): J42 - Unspecified chronic bronchitis (8) CHF (congestive heart failure) Current Visit: No Status: Chronic Assessment and plan: Stat echo revealed large right ventricle, flat septum, hypertension dynamic left ventricle, 70% EF, pleural effusion Last echo 08/06/16 showed EF 60% Continue IV fluids Continue close monitoring for signs of fluid overload Qualifiers: Heart failure type: diastolic Heart failure chronicity: chronic Qualified Code(s): I50.32 - Chronic diastolic (congestive) heart failure (9) HTN (hypertension) Current Visit: No Status: Chronic Assessment and plan: Hold home antihypertensive meds and setting of septic shock Qualifiers: Hypertension type: essential hypertension Qualified Code(s): I10 - Essential (primary) hypertension (10) Severe protein-calorie malnutrition Current Visit: Yes Status: Chronic Assessment and plan: Patient has severe loss of subcuticular fat, muscle wasting, 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, weight loss, decreased energy intake Consider nutrition supplementation (11) DVT prophylaxis Current Visit: Yes Status: Acute Assessment and plan: EPCDs (12) Supratherapeutic INR Current Visit: Yes Status: Acute Assessment and plan: INR level 2.9 --> 3.3 Echo revealed right ventricle dilation, DVT ultrasound pending of right upper extremity No signs of active bleeding, will repeat INR in AM and consider giving FFP and vitamin K - Time Spent With Patient Total time spent is greater than 50% in coordination of care (as documented) at patient's floor/unit and/or counseling patient: <Silviano Alonzo - Last Filed: 08/16/18 01:05> Date of Encounter: 08/15/18 Time of Encounter: 21:45 ROS unobtainable: due to mental status - Constitutional Vitals: Temp Pulse Resp BP Pulse Ox 96.0 F L 86 14 117/70 100 08/16/18 00:00 08/16/18 00:00 08/16/18 00:00 08/16/18 00:00 08/16/18 00:00 General appearance: Present: cachectic Exam: minimally responsive; cool central body, cold/purple extremities; labored breathing with signs of impending respiratory failure/arrest - Head Head exam: Present: atraumatic - Eye Eye exam: Absent: scleral icterus - ENT ENT exam: Present: mucous membranes dry - Neck Neck exam general surgery: Present: full ROM, supple. Absent: lymphadenopathy, tenderness, nuchal rigidity, thyromegaly - Respiratory Respiratory exam: Present: accessory muscle use, decreased breath sounds ( predominantly in right lung), respiratory distress. Absent: chest wall tenderness Additional comments: small, shallow respirations with accessory muscle use and impending failure/ arrest - Cardiovascular Cardiovascular exam: Present: distant heart sounds, RRR, tachycardia - GI/Abdominal GI/Abdominal exam: Present: hypoactive bowel sounds, soft. Absent: tenderness - Extremities Exam Extremities exam: Present: cyanotic. Absent: joint swelling, normal capillary refill (absent), warm, radial pulses palpable and symmetrical (weak and thready) - Neurological Exam Neurological exam: Present: altered Additional comments: somnolent, minimally responsive - Skin Skin exam: Present: cyanosis (peripheral cyanosis). Absent: warm (cold extremities; cool central core) Internal Med - H&P Results - Labs CBC & Chem 7: 08/15/18 22:35 08/15/18 22:35 Labs: Short CBC 08/15/18 Range/Units 22:35 WBC 21.3 H (4.3-11.1) K/mcL Hgb 12.6 D (11.5-15.4) g/dL Hct 40.5 (35.3-44.9) % Plt Count 174 (140-400) K/mcL Neutrophils # 18.8 H (1.6-8.9) K/mcL BMP 08/15/18 22:35 Sodium 129 L Potassium 5.2 H Chloride 95 L Carbon Dioxide 18 L BUN 59 H Creatinine 2.47 H Glucose 147 H Calcium 7.4 L Cardiac Enzymes 08/15/18 Range/Units 21:34 Troponin I 0.13 H* (< 0.04) ng/mL Liver Function 08/15/18 Range/Units 22:35 Total Bilirubin 1.4 H (0.3-1.0) mg/dL AST 562 H (13-39) Units/L ALT 215 H (7-52) Units/L Alkaline Phosphatase 73 (34-104) Units/L Albumin 2.5 L (3.5-5.7) g/dL - ABG Interpretation ABG results: 08/15/18 22:55 ABG pH 7.15 L* ABG pCO2 50 H ABG pO2 180 H ABG HCO3 17 L ABG Total CO2 19 L ABG O2 Saturation 99 H ABG Base Excess -12 L - EKG Data -: EKG Interpreted by Myself EKG shows normal: sinus rhythm Rate: tachycardia - Impressions ITS Impressions Chest X-Ray 08/15/18 22:04 IMPRESSION: 1. Endotracheal tube is in place, tip 2.1 cm superior to the alexis. NG tube extends below the left hemidiaphragm, into the upper abdomen, tip overlying the expected level of the stomach, right upper quadrant. 2. Technically limited exam greatly rotated rightward resulting in pendulous left breast shadowing over the left hemithorax. 3. Cardiomegaly. 4. No pleural effusion or pneumothorax is evident. D/ / Raul Long / Raul Long Interpreting Provider: Raul Long X-Ray 08/15/18 22:04 IMPRESSION: Enteric tube in place as above. D/ / Sofi Brar Cha, MD / Sofi Brar Cha, MD Interpreting Provider: Sofi Brar Cha, MD - Diagnostic Studies Chest x-ray Status: image reviewed by me (post-intubation CXR -- ETT ~ 2 cm above alexis; lungs expanded) - Assessment and plan (1) COPD (chronic obstructive pulmonary disease) Current Visit: Yes Status: Chronic Qualifiers: COPD type: chronic bronchitis Chronic bronchitis type: unspecified Qualified Code(s): J42 - Unspecified chronic bronchitis (2) HTN (hypertension) Current Visit: No Status: Chronic Qualifiers: Hypertension type: essential hypertension Qualified Code(s): I10 - Essential (primary) hypertension (3) DVT prophylaxis Current Visit: Yes Status: Acute (4) CHF (congestive heart failure) Current Visit: No Status: Chronic Qualifiers: Heart failure type: diastolic Heart failure chronicity: chronic Qualified Code(s): I50.32 - Chronic diastolic (congestive) heart failure (5) Septic shock Current Visit: Yes Status: Acute (6) Acute on chronic respiratory failure with hypoxia and hypercapnia Current Visit: Yes Status: Acute (7) Severe protein-calorie malnutrition Current Visit: Yes Status: Chronic (8) Acute encephalopathy Current Visit: Yes Status: Acute (9) CECI (acute kidney injury) Current Visit: Yes Status: Acute (10) Community acquired pneumonia Current Visit: Yes Status: Acute Qualifiers: Laterality: unspecified laterality Qualified Code(s): J18.9 - Pneumonia, unspecified organism (11) Multiorgan failure Current Visit: Yes Status: Acute (12) Supratherapeutic INR Current Visit: Yes Status: Acute - Time Spent With Patient Total time spent is greater than 50% in coordination of care (as documented) at patient's floor/unit and/or counseling patient: - Attending Attestation I discussed the patient TAZLINA, past medical history, lab data, imaging studies, and exam findings with Dr. Rodriguez. I met him and saw patient in the ER after he initially assessed the patient. Upon my assessment of the patient, she appeared gravely ill with cold/purple extremities, cool central/core body temperature, and had impending respiratory failure and arrest. I reviewed her labs and then I met with patient's family at length at the bedside in the ER with Dr. Rodriguez. I discussed CODE STATUS and impressed upon the family that patient is gravely ill and that, despite all aggressive measures, she may not survive tonight. I inquired about CODE STATUS and she is full code. I informed them that she had evidence of septic shock most likely from pneumonia. There was also concern that she might have ischemic bowel/colitis. Dr. Perkins saw her in consultation in the ER and does not feel she could survive surgery at this point. Furthermore, I am not convinced she has ischemic bowel. However , I will defer that to Dr. Perkins. Nonetheless, she needs resuscitated and stabilized before she could proceed with surgery. At the present time, she has evidence of multiorgan failure which carries with it a very high mortality risk. I explained this to the patient's family, but I'm not sure how much they understand the gravity of her situation. We brought patient to the ICU from the ER and intubated her immediately upon arrival to the ICU. We placed her on warming blanket and have continued IV fluids, antibiotics, pressors, ventilatory support, and close hemodynamic and ventilatory monitoring in ICU. I also called Dr. Coley and discussed the case with him regarding her critical state, care administered thus far, and ongoing ventilatory needs. We will continue aggressive measures as above as well as mechanical ventilation as per Dr. Altman's advice. Dr. Perkins will continue to follow her from a surgical standpoint. I have reassessed her several times this evening and will continue do so as well as monitoring her closely with Dr. Rodriguez and her primary nurse. I informed family that she is critical and that she may not survive the night. However, they remain cautiously optimistic and hopeful. I spent a total of 80 minutes critical care time thus far assessing, examining, evaluating and reevaluating, and providing care and coordinating care with Dr. Rodriguez, ER team, and ICU attending.
[2018-08-15] MEDS ORDERED: Naloxone 0.4 MG/ML INJ IVP PRN (19:41)
[2018-08-15] MEDS ORDERED: Ondansetron 4 MG/2 ML VIAL IVP PRN (19:41)
[2018-08-15] MEDS ORDERED: 0.9 % Sodium Chloride 1,000 ML IVC SCH ×2 (19:45→22:27)
[2018-08-15] MEDS ORDERED: diazePAM 2 MG TABLET PO PRN (19:48)
[2018-08-15] MEDS ORDERED: *HR* Dextrose 50 % in Water (Syg) 50 ML SYRINGE IVP PRN (19:55)
[2018-08-15] MEDS ORDERED: D5% in Water 1,000 ML IVC PRN (19:55)
[2018-08-15] MEDS ORDERED: Dextrose Gel 15 GM/37.5 ML TUBE PO PRN ×2 (19:55)
[2018-08-15] MEDS ORDERED: Albuterol 2.5 MG/3 ML NEBULIZER IH SCH (20:00)
[2018-08-15] MEDS ORDERED: Ipratropium/Albuterol Neb 3 ML IH ONE (20:08)
[2018-08-15 20:17] LABS: Triiodothyronine (T3) Free 1.61 pg/mL (2.50-3.90)
[2018-08-15 20:20] LABS: Creatine Kinase 124 Units/L (30-223); Phosphorous 8.5 mg/dL (2.7-4.5)
--- NOTE | 2018-08-15 20:58 | Emergency Department Note ---
Disposition Clinical Impression: Septic shock, Altered level of consciousness Acute renal failure (ARF) Qualifiers: Acute renal failure type: unspecified Qualified Code(s): N17.9 - Acute kidney failure, unspecified Disposition: Admitted As Inpatient Condition: Critical Time of Disposition: 21:01 General Adult HPI - General Chief complaint: ED Altered Mental Status Stated complaint: Low blood sugar Time Seen by Provider: 08/15/18 16:07 Source: EMS Mode of arrival: ambulatory Limitations: no limitations, altered mental status Nursing Notes Reviewed: Yes Vital Signs Reviewed: Yes - History of Present Illness HPI Narrative: Patient signed out to me from the day team as a central line needed to be place and fluids given and transferred to the ICU. This a procedure note. Pain Scale: 0 - Related Data Home Medications Medication Instructions Recorded Confirmed Albuterol Sulfate [Proair Hfa] 2 puff IH Q4HR PRN 03/26/18 08/15/18 Beclomethasone Diprop 80mcg [QVAR 2 puff IH BID 03/26/18 08/15/18 80 mcg] Docusate [Colace] 200 mg PO BID 03/26/18 08/15/18 FentaNYL PATCH [Duragesic] 75 mcg TD Q72H 03/26/18 08/15/18 Guaifenesin [Mucinex] 600 mg PO BID PRN 03/26/18 08/15/18 Ipratropium/Albuterol Neb [Duoneb] 3 ml IH Q4HR 03/26/18 08/15/18 Omeprazole [PriLOSEC] 40 mg PO DAILY 03/26/18 08/15/18 Ondansetron HCl [Zofran] 4 mg PO TID PRN 03/26/18 08/15/18 Dicyclomine [Bentyl] 20 mg PO TID 03/27/18 08/15/18 diazePAM [Valium] 2 mg PO DAILY PRN 03/27/18 08/15/18 Acetaminophen [Tylenol] 500 mg PO Q6HR PRN 08/15/18 08/15/18 Albuterol Neb [Proventil Neb] 2.5 mg IH Q4HR 08/15/18 08/15/18 Carvedilol [Coreg] 3.125 mg PO BID 08/15/18 08/15/18 Nystatin POWDER [Nystop] 1 appl TP BID 08/15/18 08/15/18 Omeprazole [PriLOSEC] 40 mg PO DAILY 08/15/18 08/15/18 Triamcinolone Acetonide 15 gm TP BID 08/15/18 08/15/18 Previous Rx's Medication Instructions Recorded Metoprolol [Lopressor] 25 mg PO BID #30 tablet 03/29/18 Allergies Allergy/AdvReac Type Severity Reaction Status Date / Time aspirin Allergy Hives Verified 09/25/17 11:53 cefpodoxime [From Vantin] Allergy Hives Verified 09/25/17 11:53 Cephalosporins Allergy Hives Verified 09/25/17 11:53 ciprofloxacin [From Cipro] Allergy Hives Verified 09/25/17 11:53 diltiazem [From Cardizem] Allergy Hives Verified 09/25/17 12:21 hydrocodone Allergy Hives Verified 09/25/17 11:53 moxifloxacin Allergy Hives Verified 09/25/17 11:53 propoxyphene Allergy Hives Verified 09/25/17 11:53 sodium bicarbonate Allergy Hives Verified 09/25/17 11:53 Sulfa (Sulfonamide Allergy Hives Verified 09/25/17 11:53 Antibiotics) tramadol Allergy Hives Verified 09/25/17 11:53 beta-lactam Allergy Hives Uncoded 09/25/17 11:53 cetpodoxime Allergy Hives Uncoded 09/25/17 11:53 iv dye Allergy See Uncoded 09/25/17 12:20 Comments multivitamins Allergy Hives Uncoded 09/25/17 11:53 All systems ED: reviewed and negative except as stated. Review of Systems: As Per HPI Past Medical History - Past Medical History Medical history: Reports: arthritis, asthma, CHF, COPD, coronary artery disease , GERD, glaucoma, renal disease, thyroid disease, other Surgical history: Reports: appendectomy Psychiatric history: Reports: anxiety, PTSD - Social History Smoking Status: Former smoker Smokeless Tobacco Status: No Alcohol use: Reports: rarely Drug use: Reports: none Physical Exam - General Limitations: altered mental status General appearance: obtunded Course Vital Signs Temperature 97.4 F L 08/15/18 16:09 Pulse Rate 113 08/15/18 16:09 Respiratory Rate 12 08/15/18 16:09 Blood Pressure 79/54 08/15/18 16:09 O2 Sat by Pulse Oximetry 90 08/15/18 16:09 Temperature 96.0 F L 08/16/18 04:00 Pulse Rate 101 08/16/18 04:00 Respiratory Rate 16 08/16/18 04:00 Blood Pressure 98/61 08/16/18 04:00 O2 Sat by Pulse Oximetry 94 08/16/18 04:00 Oxygen Delivery Oxygen Delivery Simple Mask Procedures - Central Line Placement Left IJ Central Line Inserted*: No Central Line Catheter Replacement*: No Central Line Insertion: emergent Consent Obtained: verbal consent Procedural Pause: verify patient name and date of , timeout performed per policy, toshia and assess the site, assemble equipment and verify supplies, perform hand hygiene Patient Placed on Monitor/Pulse Ox: Yes During the Procedure: clinician is wearing sterile gloves, cap, mask,& gown during insertion, sterile field and sterile technique are maintained, patient's face is covered with drape or mask and wearing a cap, everyone in room is wearing a mask Central Line Prep: Chlorhexidine scrub Prep the Procedure Site: apply chloraprep to the skin using a back and forth scrubbing motion, apply chloraprep for 30 seconds (upper body), 1-2 min ( femoral sites), allow prep to dry, drape the patient with a full body drape Local Anesthetic: lidocaine 1% Amount of anesthesia used (mL): 3 Ultrasound Used for Placement: Yes Central Line Lumen Inserted: triple Patient Tolerated Procedure: well Complications: none, other (Difficult to pass wire passed the valves so the procedure was aborted.) Name of Clinician Inserting Central Line: Dr. Robert Jay Clinician Assisting/Completing Checklist: Dr. Rafael Carolina Date: 08/15/18 Time: 21:01 Additional Comments: Central line was unsuccessfully placed due to bowels and unable to pass the wire passed that. The procedure was aborted. An external jugular 18-gauge peripheral IV was then placed by myself. This was successfully placed. Medical Decision Making - [facility] Narrative Medical decision making narrative: Patient was mildly hypotensive with a map of 70 so the thought of placing central line present in the ICU was made. There was one attempt of the central line placed difficulty on the left internal jugular due to patient's body habitus as well as the way she was laying in bed we did not want to attempt the right side. This was unsuccessfully done. Patient was fluid responsive after getting a second peripheral IV done by myself of an external jugular 18-gauge. This was successfully done. We also added more labs including a CK, repeat lactate. Lactate did come back decreased at 5. Did get an echocardiogram as yet to be read at this time. Will not start heparin due to the failed central line we will consider starting heparin once patient is more stabilized. Sign out was given to the hospitalist as well as the resident. Patient is stable at this time and admitted to the ICU. - Medical Records Medical records reviewed: Yes I reviewed the patient's medical records. - Lab Data Lab results reviewed: Yes I reviewed the patient's lab results. Result diagrams: 08/16/18 03:45 08/16/18 03:45 Lab Results 08/15/18 08/15/18 08/15/18 Range/Units 16:07 16:07 16:22 WBC (4.3-11.1) K/mcL RBC (3.82-4.97) M/mcL Hgb (11.5-15.4) g/dL Hct (35.3-44.9) % MCV (83.0-100.0) fL MCH (28.0-33.3) pg MCHC (31.6-35.5) g/dL RDW (11.5-14.5) % Plt Count (140-400) K/mcL MPV (9.4-12.4) fL Immature Gran % (0-4) % Seg Neutrophils % % Lymphocytes % % Monocytes % % Eosinophils % % Basophils % % Neutrophils # (1.6-8.9) K/mcL Lymphocytes # (0.6-4.6) K/mcL Monocytes # (0.0-1.3) K/mcL Eosinophils # (0.0-0.6) K/mcL Basophils # (0.0-0.2) K/mcL Nucleated RBCs/100 WBC (0) /100 WBC VBG pH (7.32-7.42) pH Units VBG pCO2 (41-51) mmHg VBG pO2 (25-50) mmHg VBG HCO3 (21-27) mEq/L Sodium (136-145) mEq/L Potassium (3.5-5.1) mEq/L Chloride (98-107) mEq/L Carbon Dioxide (23-29) mEq/L BUN (8-23) mg/dL Creatinine (0.60-1.20) mg/dL Est GFR ( Amer) (> 60) Est GFR (Non-Af Amer) (> 60) BUN/Creatinine Ratio (6-26) Glucose (70-105) mg/dL POC Glucose 15 L* 69 L 220 H (70-99) mg/dL Calculated Osmolality (280-300) Lactic Acid (0.5-2.2) mmol/L Calcium (8.6-10.3) mg/dL Phosphorus (2.7-4.5) mg/dL Magnesium (1.6-2.6) mg/dL Total Bilirubin (0.3-1.0) mg/dL Direct Bilirubin (0.0-0.2) mg/dL Indirect Bilirubin (0.0-1.2) mg/dL AST (13-39) Units/L ALT (7-52) Units/L Alkaline Phosphatase (34-104) Units/L Creatine Kinase (30-223) Units/L Troponin I (< 0.04) ng/mL B-Natriuretic Peptide (Less than 100) pg/mL Serum Total Protein (6.4-8.9) g/dL Albumin (3.5-5.7) g/dL Globulin (2.4-3.5) g/dL Albumin/Globulin Ratio (1.1-2.2) TSH (0.340-5.600) mcIU/mL Free T4 (0.70-2.00) ng/dl Free T3 (2.50-3.90) pg/mL Urine Color (Yellow) Urine Clarity (Clear) Urine pH (5.0-8.0) pH Units Ur Specific Buras (1.010-1.025) Urine Protein (Neg-Trace) mg/dL Urine Glucose (UA) (Normal) mg/dL Urine Ketones (Negative) mg/dL Urine Blood (Negative) Urine Nitrite (Negative) Urine Bilirubin (Negative) Urine Urobilinogen (Normal) mg/dL Ur Leukocyte Esterase (Negative) Urine Microscopic RBC (0-3) per hpf Urine Microscopic WBC (0-3) per hpf Ur Squamous Epith Cells (None-Few) per lpf Urine Bacteria (None-Few) per hpf Hyaline Casts (None-Few) per lpf Ur Culture Indicated? (NO) Ethyl Alcohol (Less than 10) mg/dL 08/15/18 08/15/18 08/15/18 Range/Units 16:58 16:58 16:58 WBC 14.4 H (4.3-11.1) K/mcL RBC 4.89 (3.82-4.97) M/mcL Hgb 15.0 (11.5-15.4) g/dL Hct 48.0 H (35.3-44.9) % MCV 98.2 (83.0-100.0) fL MCH 30.7 (28.0-33.3) pg MCHC 31.3 L (31.6-35.5) g/dL RDW 16.6 H (11.5-14.5) % Plt Count 183 (140-400) K/mcL MPV 12.3 (9.4-12.4) fL Immature Gran % 0.8 (0-4) % Seg Neutrophils % 85.0 % Lymphocytes % 3.9 % Monocytes % 10.1 % Eosinophils % 0.0 % Basophils % 0.2 % Neutrophils # 12.3 H (1.6-8.9) K/mcL Lymphocytes # 0.6 (0.6-4.6) K/mcL Monocytes # 1.5 H (0.0-1.3) K/mcL Eosinophils # 0.0 (0.0-0.6) K/mcL Basophils # 0.0 (0.0-0.2) K/mcL Nucleated RBCs/100 WBC 0.1 H (0) /100 WBC VBG pH (7.32-7.42) pH Units VBG pCO2 (41-51) mmHg VBG pO2 (25-50) mmHg VBG HCO3 (21-27) mEq/L Sodium 132 L (136-145) mEq/L Potassium 5.6 H (3.5-5.1) mEq/L Chloride 91 L (98-107) mEq/L Carbon Dioxide 20 L (23-29) mEq/L BUN 64 H (8-23) mg/dL Creatinine 2.64 H (0.60-1.20) mg/dL Est GFR ( Amer) 22 L (> 60) Est GFR (Non-Af Amer) 18 L (> 60) BUN/Creatinine Ratio 24 (6-26) Glucose 171 H (70-105) mg/dL POC Glucose (70-99) mg/dL Calculated Osmolality 296 (280-300) Lactic Acid 7.5 H* (0.5-2.2) mmol/L Calcium 8.9 (8.6-10.3) mg/dL Phosphorus 8.5 H (2.7-4.5) mg/dL Magnesium 2.0 (1.6-2.6) mg/dL Total Bilirubin 1.8 H (0.3-1.0) mg/dL Direct Bilirubin 1.2 H (0.0-0.2) mg/dL Indirect Bilirubin 0.6 (0.0-1.2) mg/dL AST 121 H (13-39) Units/L ALT 59 H (7-52) Units/L Alkaline Phosphatase 88 (34-104) Units/L Creatine Kinase 124 (30-223) Units/L Troponin I 0.10 H* (< 0.04) ng/mL B-Natriuretic Peptide (Less than 100) pg/mL Serum Total Protein 6.1 L (6.4-8.9) g/dL Albumin 3.1 L (3.5-5.7) g/dL Globulin 3.0 (2.4-3.5) g/dL Albumin/Globulin Ratio 1.0 L (1.1-2.2) TSH 6.068 H (0.340-5.600) mcIU/mL Free T4 1.03 (0.70-2.00) ng/dl Free T3 1.61 L (2.50-3.90) pg/mL Urine Color (Yellow) Urine Clarity (Clear) Urine pH (5.0-8.0) pH Units Ur Specific Buras (1.010-1.025) Urine Protein (Neg-Trace) mg/dL Urine Glucose (UA) (Normal) mg/dL Urine Ketones (Negative) mg/dL Urine Blood (Negative) Urine Nitrite (Negative) Urine Bilirubin (Negative) Urine Urobilinogen (Normal) mg/dL Ur Leukocyte Esterase (Negative) Urine Microscopic RBC (0-3) per hpf Urine Microscopic WBC (0-3) per hpf Ur Squamous Epith Cells (None-Few) per lpf Urine Bacteria (None-Few) per hpf Hyaline Casts (None-Few) per lpf Ur Culture Indicated? (NO) Ethyl Alcohol < 10 (Less than 10) mg/dL 08/15/18 08/15/18 08/15/18 Range/Units 16:58 17:08 17:41 WBC (4.3-11.1) K/mcL RBC (3.82-4.97) M/mcL Hgb (11.5-15.4) g/dL Hct (35.3-44.9) % MCV (83.0-100.0) fL MCH (28.0-33.3) pg MCHC (31.6-35.5) g/dL RDW (11.5-14.5) % Plt Count (140-400) K/mcL MPV (9.4-12.4) fL Immature Gran % (0-4) % Seg Neutrophils % % Lymphocytes % % Monocytes % % Eosinophils % % Basophils % % Neutrophils # (1.6-8.9) K/mcL Lymphocytes # (0.6-4.6) K/mcL Monocytes # (0.0-1.3) K/mcL Eosinophils # (0.0-0.6) K/mcL Basophils # (0.0-0.2) K/mcL Nucleated RBCs/100 WBC (0) /100 WBC VBG pH 7.25 L (7.32-7.42) pH Units VBG pCO2 46 (41-51) mmHg VBG pO2 90 H (25-50) mmHg VBG HCO3 20 L (21-27) mEq/L Sodium (136-145) mEq/L Potassium (3.5-5.1) mEq/L Chloride (98-107) mEq/L Carbon Dioxide (23-29) mEq/L BUN (8-23) mg/dL Creatinine (0.60-1.20) mg/dL Est GFR ( Amer) (> 60) Est GFR (Non-Af Amer) (> 60) BUN/Creatinine Ratio (6-26) Glucose (70-105) mg/dL POC Glucose 136 H (70-99) mg/dL Calculated Osmolality (280-300) Lactic Acid (0.5-2.2) mmol/L Calcium (8.6-10.3) mg/dL Phosphorus (2.7-4.5) mg/dL Magnesium (1.6-2.6) mg/dL Total Bilirubin (0.3-1.0) mg/dL Direct Bilirubin (0.0-0.2) mg/dL Indirect Bilirubin (0.0-1.2) mg/dL AST (13-39) Units/L ALT (7-52) Units/L Alkaline Phosphatase (34-104) Units/L Creatine Kinase (30-223) Units/L Troponin I (< 0.04) ng/mL B-Natriuretic Peptide 4439 H (Less than 100) pg/mL Serum Total Protein (6.4-8.9) g/dL Albumin (3.5-5.7) g/dL Globulin (2.4-3.5) g/dL Albumin/Globulin Ratio (1.1-2.2) TSH (0.340-5.600) mcIU/mL Free T4 (0.70-2.00) ng/dl Free T3 (2.50-3.90) pg/mL Urine Color (Yellow) Urine Clarity (Clear) Urine pH (5.0-8.0) pH Units Ur Specific Buras (1.010-1.025) Urine Protein (Neg-Trace) mg/dL Urine Glucose (UA) (Normal) mg/dL Urine Ketones (Negative) mg/dL Urine Blood (Negative) Urine Nitrite (Negative) Urine Bilirubin (Negative) Urine Urobilinogen (Normal) mg/dL Ur Leukocyte Esterase (Negative) Urine Microscopic RBC (0-3) per hpf Urine Microscopic WBC (0-3) per hpf Ur Squamous Epith Cells (None-Few) per lpf Urine Bacteria (None-Few) per hpf Hyaline Casts (None-Few) per lpf Ur Culture Indicated? (NO) Ethyl Alcohol (Less than 10) mg/dL 08/15/18 08/15/18 08/15/18 Range/Units 19:05 19:39 20:07 WBC (4.3-11.1) K/mcL RBC (3.82-4.97) M/mcL Hgb (11.5-15.4) g/dL Hct (35.3-44.9) % MCV (83.0-100.0) fL MCH (28.0-33.3) pg MCHC (31.6-35.5) g/dL RDW (11.5-14.5) % Plt Count (140-400) K/mcL MPV (9.4-12.4) fL Immature Gran % (0-4) % Seg Neutrophils % % Lymphocytes % % Monocytes % % Eosinophils % % Basophils % % Neutrophils # (1.6-8.9) K/mcL Lymphocytes # (0.6-4.6) K/mcL Monocytes # (0.0-1.3) K/mcL Eosinophils # (0.0-0.6) K/mcL Basophils # (0.0-0.2) K/mcL Nucleated RBCs/100 WBC (0) /100 WBC VBG pH (7.32-7.42) pH Units VBG pCO2 (41-51) mmHg VBG pO2 (25-50) mmHg VBG HCO3 (21-27) mEq/L Sodium (136-145) mEq/L Potassium (3.5-5.1) mEq/L Chloride (98-107) mEq/L Carbon Dioxide (23-29) mEq/L BUN (8-23) mg/dL Creatinine (0.60-1.20) mg/dL Est GFR ( Amer) (> 60) Est GFR (Non-Af Amer) (> 60) BUN/Creatinine Ratio (6-26) Glucose (70-105) mg/dL POC Glucose 113 H (70-99) mg/dL Calculated Osmolality (280-300) Lactic Acid 5.9 H* (0.5-2.2) mmol/L Calcium (8.6-10.3) mg/dL Phosphorus (2.7-4.5) mg/dL Magnesium (1.6-2.6) mg/dL Total Bilirubin (0.3-1.0) mg/dL Direct Bilirubin (0.0-0.2) mg/dL Indirect Bilirubin (0.0-1.2) mg/dL AST (13-39) Units/L ALT (7-52) Units/L Alkaline Phosphatase (34-104) Units/L Creatine Kinase (30-223) Units/L Troponin I (< 0.04) ng/mL B-Natriuretic Peptide (Less than 100) pg/mL Serum Total Protein (6.4-8.9) g/dL Albumin (3.5-5.7) g/dL Globulin (2.4-3.5) g/dL Albumin/Globulin Ratio (1.1-2.2) TSH (0.340-5.600) mcIU/mL Free T4 (0.70-2.00) ng/dl Free T3 (2.50-3.90) pg/mL Urine Color Dark Yellow (Yellow) Urine Clarity Cloudy A (Clear) Urine pH 5.0 (5.0-8.0) pH Units Ur Specific Buras 1.018 (1.010-1.025) Urine Protein 30 H (Neg-Trace) mg/dL Urine Glucose (UA) Normal (Normal) mg/dL Urine Ketones Negative (Negative) mg/dL Urine Blood Moderate H (Negative) Urine Nitrite Negative (Negative) Urine Bilirubin Small H (Negative) Urine Urobilinogen Normal (Normal) mg/dL Ur Leukocyte Esterase Negative (Negative) Urine Microscopic RBC 0-3 (0-3) per hpf Urine Microscopic WBC 0-3 (0-3) per hpf Ur Squamous Epith Cells None Seen (None-Few) per lpf Urine Bacteria None Seen (None-Few) per hpf Hyaline Casts None Seen (None-Few) per lpf Ur Culture Indicated? NO (NO) Ethyl Alcohol (Less than 10) mg/dL Attestation Statement - Attestation Attestation: I examined this patient and my medical decision-making was reviewed with the Resident Physician. I agree with the documented findings, disposition and treatment plan as described except to the extent set forth below. We received this patient in signout.Care was provided by Dr. Mane as the initiating provider. We did attempt the central line in the left IJ. The patient has severe contracture of the right side preventing any type of abscess on the right. She also has contracture of the lower extremities. The patient has findings of septic shock and possible pulmonary embolism. Empiric heparinization was started. Broad-spectrum antibiotics were started. The patient be admitted to the intensive care unit for further management.
[2018-08-15] MEDS: Norepinephrine 4 MG in D5% in Water 250 ML IVC SCH (21:09)
[2018-08-15] MEDS ORDERED: Hydrocortisone Sodium Succ 100 MG/2 ML VIAL IVP ONE (21:36)
--- NOTE | 2018-08-15 21:45 | Electrocardiograph Report ---
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
[2018-08-15 21:49] LABS: INR 2.9; Prothrombin Time 33.1 Seconds (9.4-12.1)
[2018-08-15 21:51] LABS: Activated Partial Thrombo Time 58.1 Seconds (26.0-36.0)
[2018-08-15] MEDS ORDERED: *HR* Heparin 5,000 UNIT/ML VIAL SQ SCH (22:00)
[2018-08-15] MEDS ORDERED: Artificial Tears SOLN 15 ML BOTTLE BOTH EYES PRN (22:05)
--- NOTE | 2018-08-15 22:35 | Procedure Note ---
<Hay Rodriguez - Last Filed: 08/16/18 00:04> Date of procedure: 08/15/18 Pre-op diagnosis: Septic shock Post-op diagnosis: same Procedure: A time-out was not completed due to the emergent nature of the procedure. The patient was placed in a dependent position appropriate for central line placement based on the vein to be cannulated. The patients left groin was prepped and draped in sterile fashion. 1% Lidocaine was used to anesthetize the surrounding skin area. A triple lumen Cordis catheter was introduced into the the common femoral vein using the Seldinger technique and under ultrasound guidance. The catheter was threaded smoothly over the guide wire and appropriate blood return was obtained. Each lumen of the catheter was evacuated of air and flushed with sterile saline. The catheter was then sutured in place to the skin and a sterile dressing applied. Perfusion to the extremity distal to the point of catheter insertion was checked and found to be adequate. Estimated Blood Loss: 1 cc. The patient tolerated the procedure well and there were no complications. The patient was placed in a semi-flat right lateral recumbent position due to chronic kyphosis and contractures. Sedation was obtained using Versed 5mg. The patient was easily ventilated using an ambu bag. The [employer] was used and inserted into the oropharynx at which time there was a Grade 1 view of the vocal cords. A 7.5-czech endotracheal tube was inserted and visualized going through the vocal cords. The stylette was removed. Colorimetric change was visualized on the CO2 meter. Breath sounds were heard in both lung russell equally. The endotracheal tube was placed at 24 cm, measured at the lip. Attending, Dr. Alonzo was present for the entire procedure. A chest x-ray was ordered to assess for pneumothorax and verify endotrachealtube placement. The patient tolerated the procedure well and there were no complications. ITS Impressions Chest X-Ray 08/15/18 22:04 IMPRESSION: 1. Endotracheal tube is in place, tip 2.1 cm superior to the alexis. NG tube extends below the left hemidiaphragm, into the upper abdomen, tip overlying the expected level of the stomach, right upper quadrant. 2. Technically limited exam greatly rotated rightward resulting in pendulous left breast shadowing over the left hemithorax. 3. Cardiomegaly. 4. No pleural effusion or pneumothorax is evident. KUB X-Ray 08/15/18 22:04 IMPRESSION: Enteric tube in place as above. Anesthesia: local Surgeon: Hay Rodriguez Was there an procurement assistant present: Yes Counter Person: Silviano Alonzo Estimated blood loss (cc): 1 IV fluids (cc): 3,000 Specimen: N/A Pathology: none sent Condition: critical Disposition: ICU <Silviano Alonzo - Last Filed: 08/16/18 01:07> Procedure: I was present and supervised the intubation procedure with Dr. Rodriguez. Airway was easily secured on first attempt. CXR confirmed placement.
--- NOTE | 2018-08-15 22:57 | General Surgery Consult Note ---
Date of Encounter: 08/15/18 Time of Encounter: 22:51 Assessment and Plan (1) Lactic acidosis Current Visit: Yes Status: Acute 68F with multiple comorbidities presents after two days of clinical deterioration, CECI, lactic acidosis; concern for ischemic bowel. however, with the patient's lung function, cardiac function (BNP ~ >3K), and overall clinical status, I do not believe she is the best operative candidate at present and that the focus shoudl be on resuscitation. In addition the family has made it clear that they do not believe surgery is the best option for her as their is a real possibility that, once intubated, she will not be able to come off the vent. NPO IVF abx fluid resuscitation serial exams will continue to follow History of Present Illness Consult date: 08/15/18 Reason for consult: abdominal pain History of present illness: 68F h/o COPD, on 2L NC, quickly drops her saturations with even mild exertion or just by talking, has been bed ridden for over 3 years, significantly debilitated presents due to a concern of clinical deterioration for the past 48hrs. Per the family she is less responsive than usual and has been complaining of abdominal pain, although that sounds more like a chronic concern. She presents with anasarca, lactic acidosis (~7). Past Med Surg Social Fam HX - Past Medical History Medical history: arthritis, asthma, CHF, COPD, coronary artery disease, GERD, glaucoma, renal disease, thyroid disease, other Additional medical history: Degenerative disk disease to back Psychiatric history: anxiety, PTSD - Past Surgical History Surgical History: appendectomy Additional surgical history: tubal - Social History Smoking Status: Former smoker Smokeless Tobacco Status: No Alcohol use: rarely Drug use: none - Family History Father Living Status: Hx Family Cardiac Disorders: Yes Hx Family Respiratory Disorders: Yes (lung cancer) Hx Family Cancer: Yes Hx Family GI Disorders: No Hx Family Endocrine Disorder: No Hx Family Neuromuscular Disorders: No Hx Family Neurologic Disorders: No Hx Family HEENT Disorders: No Hx Family Autoimmune Disorders: No Mother Living Status: Hx Family Cardiac Disorders: No Hx Family Respiratory Disorders: Yes Hx Family Cancer: No Hx Family GI Disorders: No Hx Family Endocrine Disorder: Yes Hx Family Neuromuscular Disorders: No Hx Family Neurologic Disorders: No Hx Family HEENT Disorders: No Hx Family Autoimmune Disorders: No Sister Living Status: Still Living Hx Family Cardiac Disorders: Yes Hx Family Respiratory Disorders: Yes (COPD) Hx Family Cancer: Yes Hx Family GI Disorders: No Hx Family Endocrine Disorder: No Hx Family Neuromuscular Disorders: No Hx Family Neurologic Disorders: No Hx Family HEENT Disorders: No Hx Family Autoimmune Disorders: No Brother Living Status: Hx Family Cardiac Disorders: Yes Hx Family Respiratory Disorders: No Hx Family Cancer: Yes Hx Family GI Disorders: No Hx Family Endocrine Disorder: No Hx Family Neuromuscular Disorders: No Hx Family Neurologic Disorders: No Hx Family HEENT Disorders: No Hx Family Autoimmune Disorders: No Medications and Allergies Albuterol Sulfate [Proair Hfa] 2 puff IH Q4HR PRN 03/26/18 [History] Beclomethasone Diprop 80mcg [QVAR 80 mcg] 2 puff IH BID 03/26/18 [History] Docusate [Colace] 200 mg PO BID 03/26/18 [History] FentaNYL PATCH [Duragesic] 75 mcg TD Q72H 03/26/18 [History] Guaifenesin [Mucinex] 600 mg PO BID PRN 03/26/18 [History] Ipratropium/Albuterol Neb [Duoneb] 3 ml IH Q4HR 03/26/18 [History] Omeprazole [PriLOSEC] 40 mg PO DAILY 03/26/18 [History] Ondansetron HCl [Zofran] 4 mg PO TID PRN 03/26/18 [History] Dicyclomine [Bentyl] 20 mg PO TID 03/27/18 [History] diazePAM [Valium] 2 mg PO DAILY PRN 03/27/18 [History] Metoprolol [Lopressor] 25 mg PO BID #30 tablet 03/29/18 [Rx] Acetaminophen [Tylenol] 500 mg PO Q6HR PRN 08/15/18 [History] Albuterol Neb [Proventil Neb] 2.5 mg IH Q4HR 08/15/18 [History] Carvedilol [Coreg] 3.125 mg PO BID 08/15/18 [History] Nystatin POWDER [Nystop] 1 appl TP BID 08/15/18 [History] Omeprazole [PriLOSEC] 40 mg PO DAILY 08/15/18 [History] Triamcinolone Acetonide 15 gm TP BID 08/15/18 [History] 3 Allergy/AdvReac Type Severity Reaction Status Date / Time aspirin Allergy Hives Verified 09/25/17 11:53 cefpodoxime [From Vantin] Allergy Hives Verified 09/25/17 11:53 Cephalosporins Allergy Hives Verified 09/25/17 11:53 ciprofloxacin [From Cipro] Allergy Hives Verified 09/25/17 11:53 diltiazem [From Cardizem] Allergy Hives Verified 09/25/17 12:21 hydrocodone Allergy Hives Verified 09/25/17 11:53 moxifloxacin Allergy Hives Verified 09/25/17 11:53 propoxyphene Allergy Hives Verified 09/25/17 11:53 sodium bicarbonate Allergy Hives Verified 09/25/17 11:53 Sulfa (Sulfonamide Allergy Hives Verified 09/25/17 11:53 Antibiotics) tramadol Allergy Hives Verified 09/25/17 11:53 beta-lactam Allergy Hives Uncoded 09/25/17 11:53 cetpodoxime Allergy Hives Uncoded 09/25/17 11:53 iv dye Allergy See Uncoded 09/25/17 12:20 Comments multivitamins Allergy Hives Uncoded 09/25/17 11:53 Review of Systems All systems PM: 12 point ROS negative besides HPI findings General Surgery Exam Initial Vital Signs Temp Pulse Resp BP Pulse Ox 97.4 F L 113 12 79/54 90 08/15/18 16:09 08/15/18 16:09 08/15/18 16:09 08/15/18 16:09 08/15/18 16:09 - General physical appearance cachectic, chronically ill - Eyes other (no scleral icterus) - ENT normocephalic - Neck no masses - Respiratory other (expiratory wheezing; ) - Cardiovascular Cardiovascular exam: Present: RRR - Abdomen Abdomen general surgery: Present: soft - Integumentary Integumentary general surgery: Present: warm and dry Exam Initial Vital Signs Temp Pulse Resp BP Pulse Ox 97.4 F L 113 12 79/54 90 08/15/18 16:09 08/15/18 16:09 08/15/18 16:09 08/15/18 16:09 08/15/18 16:09 Results - Labs 08/15/18 16:58 08/15/18 16:58 Abnormal lab results WBC 14.4 K/mcL (4.3-11.1) H 08/15/18 16:58 Hct 48.0 % (35.3-44.9) H 08/15/18 16:58 MCHC 31.3 g/dL (31.6-35.5) L 08/15/18 16:58 RDW 16.6 % (11.5-14.5) H 08/15/18 16:58 Neutrophils # 12.3 K/mcL (1.6-8.9) H 08/15/18 16:58 Monocytes # 1.5 K/mcL (0.0-1.3) H 08/15/18 16:58 Nucleated RBCs/100 WBC 0.1 /100 WBC (0) H 08/15/18 16:58 PT 33.1 Seconds (9.4-12.1) H 08/15/18 21:34 APTT 58.1 Seconds (26.0-36.0) H 08/15/18 21:34 VBG pH 7.25 pH Units (7.32-7.42) L 08/15/18 17:08 VBG pO2 90 mmHg (25-50) H 08/15/18 17:08 VBG HCO3 20 mEq/L (21-27) L 08/15/18 17:08 Sodium 132 mEq/L (136-145) L 08/15/18 16:58 Potassium 5.6 mEq/L (3.5-5.1) H 08/15/18 16:58 Chloride 91 mEq/L (98-107) L 08/15/18 16:58 Carbon Dioxide 20 mEq/L (23-29) L 08/15/18 16:58 BUN 64 mg/dL (8-23) H 08/15/18 16:58 Creatinine 2.64 mg/dL (0.60-1.20) H 08/15/18 16:58 Est GFR ( Amer) 22 (> 60) L 08/15/18 16:58 Est GFR (Non-Af Amer) 18 (> 60) L 08/15/18 16:58 Glucose 171 mg/dL (70-105) H 08/15/18 16:58 POC Glucose 143 mg/dL (70-99) H 08/15/18 21:50 Lactic Acid 7.6 mmol/L (0.5-2.2) H* 08/15/18 21:34 Phosphorus 8.5 mg/dL (2.7-4.5) H 08/15/18 16:58 Total Bilirubin 1.8 mg/dL (0.3-1.0) H 08/15/18 16:58 Direct Bilirubin 1.2 mg/dL (0.0-0.2) H 08/15/18 16:58 AST 121 Units/L (13-39) H 08/15/18 16:58 ALT 59 Units/L (7-52) H 08/15/18 16:58 Troponin I 0.13 ng/mL (< 0.04) H* 08/15/18 21:34 B-Natriuretic Peptide 4439 pg/mL (Less than 100) H 08/15/18 16:58 Serum Total Protein 6.1 g/dL (6.4-8.9) L 08/15/18 16:58 Albumin 3.1 g/dL (3.5-5.7) L 08/15/18 16:58 Albumin/Globulin Ratio 1.0 (1.1-2.2) L 08/15/18 16:58 TSH 6.068 mcIU/mL (0.340-5.600) H 08/15/18 16:58 Free T3 1.61 pg/mL (2.50-3.90) L 08/15/18 16:58 Urine Clarity Cloudy (Clear) A 08/15/18 19:05 Urine Protein 30 mg/dL (Neg-Trace) H 08/15/18 19:05 Urine Blood Moderate (Negative) H 08/15/18 19:05 Urine Bilirubin Small (Negative) H 08/15/18 19:05 All other labs normal. Consult Discharge Plan - Plan Referrals: Tate Franks MD [Primary Care Provider] -
[2018-08-15 22:58] LABS: Basophils % 0.1 %; Hematocrit 40.5 % (35.3-44.9); Immature Granulocytes % 0.8 % (0-4); Lymphocytes # 0.8 K/mcL (0.6-4.6); Lymphocytes % 3.5 %; Mean Corpuscular HGB Conc 31.1 g/dL (31.6-35.5); Mean Corpuscular Volume 99.8 fL (83.0-100.0); Mean Platelet Volume 12.7 fL (9.4-12.4); Monocytes # 1.6 K/mcL (0.0-1.3); Monocytes % 7.4 %; Neutrophils # 18.8 K/mcL (1.6-8.9); Nucleated Red Blood Cells 0.2 /100 WBC (0); Platelet Count 174 K/mcL (140-400); Red Blood Count 4.06 M/mcL (3.82-4.97); Red Cell Distribution Width 16.7 % (11.5-14.5); Segmented Neutrophils % 88.2 %
[2018-08-15 22:58] LABS: ABG Base Excess -12 mEq/L (-2 to 3); ABG HCO3 17 mEq/L (21-27); ABG Oxygen Saturation 99 % (95-98); ABG PCO2 50 mmHg (35-45); ABG PH 7.15 pH Units (7.32-7.45); ABG PO2 180 mmHg (85-104); ABG TCO2 19 mEq/L (20-26); Blood Gas Modality ASSIST CONTROL; Blood Gas PEEP 5 cm H2O; Blood Gas Respiration Rate 14; Blood Gas VT 300 cc
[2018-08-15] MEDS: TRIAMCINOLONE ACETONIDE 0.025% TP SCH (22:58)
[2018-08-15 23:00] LABS: Hemoglobin 12.6 g/dL (11.5-15.4)
[2018-08-15] MEDS: Artificial Tears SOLN 15 ML BOTTLE BOTH EYES SCH (23:01)
[2018-08-15 23:14] LABS: INR 3.2; Prothrombin Time 35.9 Seconds (9.4-12.1)
[2018-08-15 23:16] LABS: Activated Partial Thrombo Time 57.8 Seconds (26.0-36.0)
[2018-08-15] MEDS: Meropenem 1,000 MG in Water for inj. (sterile) 20 ML 10 ML IVP SCH (23:16)
[2018-08-15 23:18] LABS: Albumin 2.5 g/dL (3.5-5.7); Bilirubin,Total 1.4 mg/dL (0.3-1.0); Calcium 7.4 mg/dL (8.6-10.3); Globulin 2.5 g/dL (2.4-3.5); Potassium 5.2 mEq/L (3.5-5.1)
[2018-08-15] MEDS: Ipratropium/Albuterol Neb 3 ML IH SCH ×2 (23:25→23:30)
[2018-08-15] MEDS: Beclomethasone 80mcg MDI IH SCH (23:25)
[2018-08-16] MEDS: Nystatin POWDER 30 GM BOTTLE TP SCH ×3 (00:03→20:25)
[2018-08-16] MEDS ORDERED: 0.9 % Sodium Chloride 500 ML ONE (01:04)
[2018-08-16 02:33] LABS: ABG Base Excess -4 mEq/L (-2 to 3); ABG HCO3 24 mEq/L (21-27); ABG Oxygen Saturation 98 % (95-98); ABG PCO2 54 mmHg (35-45); ABG PH 7.25 pH Units (7.32-7.45); ABG PO2 132 mmHg (85-104); ABG TCO2 25 mEq/L (20-26); Blood Gas Modality ASSIST CONTROL; Blood Gas PEEP 5 cm H2O; Blood Gas Respiration Rate 14; Blood Gas VT 350 cc
[2018-08-16] MEDS: Artificial Tears SOLN 15 ML BOTTLE BOTH EYES SCH ×6 (03:32→23:23)
[2018-08-16] MEDS: Ipratropium/Albuterol Neb 3 ML IH SCH ×6 (03:42→23:34)
[2018-08-16 04:23] LABS: Red Cell Distribution Width 16.9 % (11.5-14.5)
[2018-08-16 04:24] LABS: Basophils # 0.1 K/mcL (0.0-0.2); Basophils % 0.2 %; Hematocrit 39.6 % (35.3-44.9); Hemoglobin 12.9 g/dL (11.5-15.4); Immature Granulocytes % 0.7 % (0-4); Lymphocytes # 0.7 K/mcL (0.6-4.6); Lymphocytes % 2.4 %; Mean Corpuscular HGB Conc 32.6 g/dL (31.6-35.5); Mean Corpuscular Hemoglobin 31.2 pg (28.0-33.3); Mean Corpuscular Volume 95.9 fL (83.0-100.0); Mean Platelet Volume 12.7 fL (9.4-12.4); Monocytes # 1.5 K/mcL (0.0-1.3); Monocytes % 5.1 %; Nucleated Red Blood Cells 0.1 /100 WBC (0); Platelet Count 160 K/mcL (140-400); Red Blood Count 4.13 M/mcL (3.82-4.97); Segmented Neutrophils % 91.6 %
[2018-08-16 04:25] LABS: Neutrophils # 26.5 K/mcL (1.6-8.9)
[2018-08-16 04:39] LABS: Platelet Estimate Normal (Normal)
[2018-08-16 04:53] LABS: Alanine Aminotransferase > 500 Units/L (7-52); Albumin 2.5 g/dL (3.5-5.7); Alkaline Phosphatase 87 Units/L (34-104); BUN/Creatinine Ratio 26 (6-26); Bilirubin,Total 1.6 mg/dL (0.3-1.0); Blood Urea Nitrogen 62 mg/dL (8-23); Calcium 7.4 mg/dL (8.6-10.3); Carbon Dioxide 23 mEq/L (23-29); Chloride 96 mEq/L (98-107); Globulin 2.4 g/dL (2.4-3.5); Glucose 165 mg/dL (70-105); Osmolality,Calculated 301 (280-300); Potassium 4.6 mEq/L (3.5-5.1); Sodium 135 mEq/L (136-145); Total Protein 4.9 g/dL (6.4-8.9); eGFR For Non-African Americans 20 (> 60)
[2018-08-16 05:10] LABS: Aspartate Amino Transferase 1482 Units/L (13-39)
[2018-08-16] MEDS: Hydrocortisone Sodium Succ 100 MG/2 ML VIAL IVP SCH ×4 (05:14→23:25)
[2018-08-16 05:25] LABS: ABG Base Excess -3 mEq/L (-2 to 3); ABG HCO3 24 mEq/L (21-27); ABG Oxygen Saturation 91 % (95-98); ABG PCO2 48 mmHg (35-45); ABG PO2 68 mmHg (85-104); ABG TCO2 25 mEq/L (20-26); Blood Gas Modality PRVC; Blood Gas PEEP 5 cm H2O; Blood Gas VT 350 cc
[2018-08-16 06:24] LABS: Prothrombin Time 39.8 Seconds (9.4-12.1)
[2018-08-16 06:25] LABS: INR 3.5
[2018-08-16 06:27] LABS: Activated Partial Thrombo Time 51.7 Seconds (26.0-36.0)
[2018-08-16] MEDS: Azithromycin 500 MG in D5% in Water 250 ML IVPB SCH (07:50)
[2018-08-16] MEDS: Pantoprazole 40 MG VIAL IVP SCH (07:50)
[2018-08-16] MEDS: TRIAMCINOLONE ACETONIDE 0.025% TP SCH ×2 (07:51→20:25)
[2018-08-16] MEDS: Chlorhexidine Rinse 15 ML MOUTHWASH MM SCH ×2 (07:51→20:24)
[2018-08-16] MEDS: Beclomethasone 80mcg MDI IH SCH ×2 (07:52→20:02)
--- NOTE | 2018-08-16 08:03 | Pulmonology Consult Note ---
<Paulo Altman W - Last Filed: 08/16/18 10:13> Date of Encounter: 08/16/18 Medications and Allergies Albuterol Sulfate [Proair Hfa] 2 puff IH Q4HR PRN 03/26/18 [History] Beclomethasone Diprop 80mcg [QVAR 80 mcg] 2 puff IH BID 03/26/18 [History] Docusate [Colace] 200 mg PO BID 03/26/18 [History] FentaNYL PATCH [Duragesic] 75 mcg TD Q72H 03/26/18 [History] Guaifenesin [Mucinex] 600 mg PO BID PRN 03/26/18 [History] Ipratropium/Albuterol Neb [Duoneb] 3 ml IH Q4HR 03/26/18 [History] Omeprazole [PriLOSEC] 40 mg PO DAILY 03/26/18 [History] Ondansetron HCl [Zofran] 4 mg PO TID PRN 03/26/18 [History] Dicyclomine [Bentyl] 20 mg PO TID 03/27/18 [History] diazePAM [Valium] 2 mg PO DAILY PRN 03/27/18 [History] Metoprolol [Lopressor] 25 mg PO BID #30 tablet 03/29/18 [Rx] Acetaminophen [Tylenol] 500 mg PO Q6HR PRN 08/15/18 [History] Albuterol Neb [Proventil Neb] 2.5 mg IH Q4HR 08/15/18 [History] Carvedilol [Coreg] 3.125 mg PO BID 08/15/18 [History] Nystatin POWDER [Nystop] 1 appl TP BID 08/15/18 [History] Omeprazole [PriLOSEC] 40 mg PO DAILY 08/15/18 [History] Triamcinolone Acetonide 15 gm TP BID 08/15/18 [History] 3 Allergy/AdvReac Type Severity Reaction Status Date / Time aspirin Allergy Hives Verified 09/25/17 11:53 cefpodoxime [From Vantin] Allergy Hives Verified 09/25/17 11:53 Cephalosporins Allergy Hives Verified 09/25/17 11:53 ciprofloxacin [From Cipro] Allergy Hives Verified 09/25/17 11:53 diltiazem [From Cardizem] Allergy Hives Verified 09/25/17 12:21 hydrocodone Allergy Hives Verified 09/25/17 11:53 moxifloxacin Allergy Hives Verified 09/25/17 11:53 propoxyphene Allergy Hives Verified 09/25/17 11:53 sodium bicarbonate Allergy Hives Verified 09/25/17 11:53 Sulfa (Sulfonamide Allergy Hives Verified 09/25/17 11:53 Antibiotics) tramadol Allergy Hives Verified 09/25/17 11:53 beta-lactam Allergy Hives Uncoded 09/25/17 11:53 cetpodoxime Allergy Hives Uncoded 09/25/17 11:53 iv dye Allergy See Uncoded 09/25/17 12:20 Comments multivitamins Allergy Hives Uncoded 09/25/17 11:53 All Systems: The remainder of the systems were reviewed and are negative Physical Examination Vital Signs: Vital Signs, Last 4 Hours Temp Resp BP Pulse Ox 08/16/18 09:04 16 99/64 100 08/16/18 07:50 16 99/64 95 08/16/18 07:30 98.7 F Ventilator Settings Ventilator Settings: Ventilator Settings, Last 8 Hours Ventilator Tidal Volume 350 Setting Ventilator Tidal Volume 350 Setting Ventilator Tidal Volume 350 Setting Ventilator Tidal Volume 350 Setting Ventilator Tidal Volume 350 Setting Ventilator Tidal Volume 350 Setting Ventilator Tidal Volume 350 Setting Ventilator Tidal Volume 350 Setting Ventilator Tidal Volume 350 Setting Ventilator Respiratory Rate 16 Setting Ventilator Respiratory Rate 16 Setting Ventilator Respiratory Rate 16 Setting Ventilator Respiratory Rate 16 Setting Ventilator Respiratory Rate 16 Setting Ventilator Respiratory Rate 16 Setting Ventilator Respiratory Rate 16 Setting Ventilator Respiratory Rate 14 Setting Ventilator Respiratory Rate 14 Setting Actual Respiratory Rate 16 Actual Respiratory Rate 16 Actual Respiratory Rate 18 Actual Respiratory Rate 19 Actual Respiratory Rate 16 Actual Respiratory Rate 16 Actual Respiratory Rate 16 Positive End Expiratory 5 Pressure Positive End Expiratory 5 Pressure Positive End Expiratory 5 Pressure Positive End Expiratory 5 Pressure Positive End Expiratory 5 Pressure Positive End Expiratory 5 Pressure Positive End Expiratory 5 Pressure Positive End Expiratory 5 Pressure Positive End Expiratory 5 Pressure Peak Inspiratory Airway 40 Pressure Peak Inspiratory Airway 40 Pressure Peak Inspiratory Airway 30 Pressure Peak Inspiratory Airway 27 Pressure Peak Inspiratory Airway 31 Pressure Peak Inspiratory Airway 33 Pressure Peak Inspiratory Airway 32 Pressure Results - Laboratory Findings CBC and BMP: 08/16/18 03:45 08/16/18 03:45 ABG ABG pH 7.30 pH Units (7.32-7.45) L 08/16/18 05:22 ABG pCO2 48 mmHg (35-45) H 08/16/18 05:22 ABG pO2 68 mmHg (85-104) L D 08/16/18 05:22 ABG O2 Saturation 91 % (95-98) L 08/16/18 05:22 PT/INR, D-dimer PT 39.8 Seconds (9.4-12.1) H 08/16/18 06:05 Abnormal lab findings: Abnormal lab results WBC 28.9 K/mcL (4.3-11.1) H 08/16/18 03:45 RDW 16.9 % (11.5-14.5) H 08/16/18 03:45 MPV 12.7 fL (9.4-12.4) H 08/16/18 03:45 Neutrophils # 26.5 K/mcL (1.6-8.9) H 08/16/18 03:45 Monocytes # 1.5 K/mcL (0.0-1.3) H 08/16/18 03:45 Nucleated RBCs/100 WBC 0.1 /100 WBC (0) H 08/16/18 03:45 PT 39.8 Seconds (9.4-12.1) H 08/16/18 06:05 APTT 51.7 Seconds (26.0-36.0) H 08/16/18 06:05 ABG pH 7.30 pH Units (7.32-7.45) L 08/16/18 05:22 ABG pCO2 48 mmHg (35-45) H 08/16/18 05:22 ABG pO2 68 mmHg (85-104) L D 08/16/18 05:22 ABG O2 Saturation 91 % (95-98) L 08/16/18 05:22 ABG Base Excess -3 mEq/L (-2 to 3) L 08/16/18 05:22 VBG pH 7.25 pH Units (7.32-7.42) L 08/15/18 17:08 VBG pO2 90 mmHg (25-50) H 08/15/18 17:08 VBG HCO3 20 mEq/L (21-27) L 08/15/18 17:08 Sodium 135 mEq/L (136-145) L 08/16/18 03:45 Chloride 96 mEq/L (98-107) L 08/16/18 03:45 BUN 62 mg/dL (8-23) H 08/16/18 03:45 Creatinine 2.40 mg/dL (0.60-1.20) H 08/16/18 03:45 Est GFR ( Amer) 24 (> 60) L 08/16/18 03:45 Est GFR (Non-Af Amer) 20 (> 60) L 08/16/18 03:45 Glucose 165 mg/dL (70-105) H 08/16/18 03:45 POC Glucose 130 mg/dL (70-99) H 08/16/18 07:18 Calculated Osmolality 301 (280-300) H 08/16/18 03:45 Lactic Acid 5.8 mmol/L (0.5-2.2) H* 08/16/18 03:45 Calcium 7.4 mg/dL (8.6-10.3) L 08/16/18 03:45 Phosphorus 8.5 mg/dL (2.7-4.5) H 08/15/18 16:58 Total Bilirubin 1.6 mg/dL (0.3-1.0) H 08/16/18 03:45 Direct Bilirubin 1.2 mg/dL (0.0-0.2) H 08/15/18 16:58 AST 1482 Units/L (13-39) H 08/16/18 03:45 ALT > 500 Units/L (7-52) H 08/16/18 03:45 Troponin I 0.17 ng/mL (< 0.04) H* 08/16/18 03:45 B-Natriuretic Peptide 4439 pg/mL (Less than 100) H 08/15/18 16:58 Serum Total Protein 4.9 g/dL (6.4-8.9) L 08/16/18 03:45 Albumin 2.5 g/dL (3.5-5.7) L 08/16/18 03:45 Albumin/Globulin Ratio 1.0 (1.1-2.2) L 08/16/18 03:45 TSH 6.068 mcIU/mL (0.340-5.600) H 08/15/18 16:58 Free T3 1.61 pg/mL (2.50-3.90) L 08/15/18 16:58 Urine Clarity Cloudy (Clear) A 08/15/18 19:05 Urine Protein 30 mg/dL (Neg-Trace) H 08/15/18 19:05 Urine Blood Moderate (Negative) H 08/15/18 19:05 Urine Bilirubin Small (Negative) H 08/15/18 19:05 - Clinical Findings Intake & Output: Intake & Output 08/15/18 08/16/18 08/16/18 23:59 07:59 15:59 Intake Total 1311 / 1311 Output Total 201 / 201 15 / 15 Balance -201 / 799 1296 / 1296 Weight 40.5 kg Consult Discharge Plan - Plan Referrals: Tate Franks MD [Primary Care Provider] - - Attending Attestation I examined this patient and my medical decision-making was reviewed with the Resident Physician. I agree with the documented findings, disposition and treatment plan as described except to the extent set forth below. We independently had [id number] contact with the patient I spent 45min of Critical Care time with this patient. It involved decision making of high complexity to assess, manipulate, and support vital organ system failure and/or to prevent further life threatening deterioration of the patient' s condition. The time involved in the performance of separately reportable procedures was not counted toward critical care time. Patient seen and examined at bedside Labs, radiology, chart personally reviewed. Management was reviewed during multidisciplinary critical care rounds. [employer]: Acute encephalopathy secondary to metabolic derangements hypoglycemia and hypotension head CT without acute process when sedation is lifted patient is arousable continue sedation for comfort while on vent will switch from propofol to fentanyl and Precedex goal [place] 2-3 Pulm: Acute hypoxic hypercapnic respiratory failure likely secondary to pneumonia acceptable gas exchange today on vent using low tidal volume ventilatory strategy. She is not a candidate for spontaneous breathing trial because of critical illness Cards: Distributive shock secondary to sepsis complicated by lactic acidosis and multiorgan system failure she remains on vasopressor but encouragingly this is been able to be decreased over the course of the morning she has received fluid resuscitation overnight and I do not feel that she would benefit from further fluid administration. She has evidence of troponin elevation which is likely demand ischemia pending formal echocardiogram today. GI: GI prophylaxis given. There is concerned about possibility of ischemic bowel no radiographic evidence of this has been seen by general surgery who doubts this is the case no acute indication for surgery given clinical instability this would likely be a life ending event Nutrition: Nothing by mouth for now Renal: Acute kidney injury likely secondary to hypotension and prerenal azotemia. Fortunately patient is making some urine no acute indication for dialysis at this time UOP Monitored, Cont to Trend sCr and monitor Electrolytes. ID: Suspected aspiration pneumonia but we have evaluated the chest abdomen and pelvis is possible 97 infection without clear etiology except for the long there is a possibility she may have a infected lower extremity for which we will obtain a CT scan. She has multiple allergies to antibiotics but currently is on broad-spectrum support count has trended up although clinically appears to be doing a bit better I would not make any adjustments in her antimicrobials today Heme/Onc: She is coagulopathic with concern for DIC. No overt evidence of hemorrhage vitamin K given no acute indication for FFP or cryoprecipitate. High risk for hemorrhage. Continue mechanical DVT prophylaxis Endo: Hypoglycemia on arrival stress dose steroids given now stable blood glucose continue Glucose Monitoring. TSH modestly elevated but T3-T4 acceptable which is consistent with critical illness and not myxedema coma Integ/MSK: She has multiple skin tears and overall frail thin skin will need formal wound care consultation continue Skin Care per routine ICU Nursing Protocol to prevent ulcers. Lines: All lines examined without evidence of infection : Dispo: In ICU for critical illness CODE: Full code at present I had a productive conversation with the patient's next of kin her daughter and the patient's at bedside. They state that they are leaning towards DNAR but the rest of the family will need to be present to make that decision I did explain that her overall prognosis is guarded to poor and I did not feel from a medical standpoint that CPR given her frail state and critical illness would be therapeutic. The daughter and confirmed that the patient did not want dialysis I explained that this may be required but if that line is drawn then we will note that in the chart and not perform dialysis. The patient is unable or incompetent to participate in giving a history and/or making treatment decisions. The discussion was necessary for determining treatment decision. This discussion took place in the [ICU]. The total meeting time was [ 10 minutes] <Cesar Vasques - Last Filed: 08/16/18 15:53> Date of Encounter: 08/16/18 Time of Encounter: 06:45 Assessment and Plan (1) Septic shock Current Visit: Yes Status: Acute Hypothermic 90.6F, tachycardic 113, tachypnic 26, hypotensive bp 79/54 in ED. Septic shock complicated with lactic acidosis and multiorgan system failure requiring pressor support with norepinephrine which has been weaning today. Unclear origin at this point. Suspected aspiration pneumonia with CT chest showing near collapse middle lobe and partial collapse of dependant R lower lobe with possible superimposed pneumonia or aspiration. Received 4.5L IVF since arrival. No further resuscitation would be beneficial at this point. Troponin bump likely demand ischemia. WBC increased from 14.4 at arrival to 28.9 today. Hypothermia improved, normothermic now. On empiric vanc, meropenem, azithromycin for sepsis and metronidazole added for possible colitis. Will continue those for now and deescalate as indicated. General surg evaluated her in the ED after concern of necrotic bowel and deemed her not a candidate for surgical intervention due to her unstable status. Additionally, there has not been evidence of bowel necrosis on CT. Will obtain CT of L foot and ankle due to open wound with peroneal tendon exposure for possible source of infection. Critical condition has improved some since arrival but still high risk of deterioration. Condition and code status discussed in detail with family and they would like to discuss before any changes are made. (2) MODS (multiple organ dysfunction syndrome) Current Visit: Yes Status: Acute Acute resp failure, hypotension on pressors, CECI, and ischemic liver. As above in septic shock assessment. Case discussed in detail about her condition and code status being full code. Family wants to discuss and decide later. (3) Acute on chronic respiratory failure with hypoxia and hypercapnia Current Visit: Yes Status: Acute Hx COPD with home O2 dependance. Resp distress with hypoxia and hypercapnia in ED Intubated and on vent Initial ABG ph 7.15, paco2 50. Repeat improved some 7.30, 48 Will remain on vent and not candidate for SBT given her critical nature currently. Will monitor and reassess resp status. (4) Acute encephalopathy Current Visit: Yes Status: Acute AMS 24 hours prior to arrival. Likely 2/2 hypercarbia, hypoglycemia, and septic shock in setting of multiple metabolic derangements. CT head without any acute process Will transition sedation from propofol to fentanyl and precedex with continued goal estefani of 3. Will wean sedation as tolerated. (5) CECI (acute kidney injury) Current Visit: Yes Status: Acute Likely 2/2 hypotension, prerenal azotemia in the setting of septic shock. Cr 2.4, continues to make some urine. Dialysis was not an option when discussed with family if uop stops. Will continue to trend Cr, uop, electrolytes and replace as indicated. (6) Pneumonia, aspiration Current Visit: Yes Status: Acute Concern for aspiration pneumonia in setting of encephalopathy. CT chest showed near complete collapse of middle lobe and partial collapse of dependant R lower lobe with possible overlying pneumonia or aspiration. Intubated on vent currently. Will continue anaerobe coverage with meropenem and deescalate as indicated. Qualifiers: Aspiration pneumonia type: unspecified Laterality: right Lung location: middle lobe of lung Qualified Code(s): J69.0 - Pneumonitis due to inhalation of food and vomit (7) Coagulopathy Current Visit: Yes Status: Acute INR 3.5. Not on home anticoagulation. Has IVC filter but never had previous clot according to family. There is concern for DIC in her coagulopathic state along with hemorrhage. No evidence of hemorrhage at this point. Will give Vit K and trend INR and monitor for bleeding. (8) Ischemic hepatitis Current Visit: Yes Status: Acute ALT >500, AST 1482, INR 3.5 This is likely due to hypotension with current septic shock. (9) Heart failure with preserved ejection fraction Current Visit: Yes Status: Acute BNP at admission 4489. Previous ECHO 08/06/16 EF 60% ECHO last night EF 70%, large R ventricle Stopping IVF (10) Lactic acidosis Current Visit: Yes Status: Acute High of 7.6, most recently 5.8. (11) Supratherapeutic INR Current Visit: Yes Status: Acute INR 3.5. Likely due to ischemic hepatitis in setting of septic shock. Not on home anticoagulation. Has IVC filter but never had previous clot according to family. There is concern for hemorrhage. No evidence of hemorrhage at this point. Will give Vit K and trend INR and monitor for bleeding. (12) DVT prophylaxis Current Visit: Yes Status: Acute Mechanical prophylaxis. History of Present Illness Consult date: 08/16/18 Requesting physician: Silviano Alonzo Reason for consult: other (acute respiratory failure) Chief complaint: Hypoglycemia, AMS History of present illness: 68 year old woman who is bed ridden due to L hip pain with pmh significant for COPD on 2L home O2, pulm mucous plugging, HFpEF, and CAD. Hx comes from medical record as she is intubated and sedated. She presented to ED with glucose 15 and AMS. Family reported she did not eat for a few days, complaining of chills, anorexia, nausea and abdominal pain for 3 days. She was alert and oriented 2 evenings ago but became confused yesterday. She has been bed bound for 3 years with inability to bear weight due to L hip pain. She has had redness and swelling in her R upper arm her off and on for months but became acutely more swollen and erythematous last 2 days. Past Med Surg Social Fam HX - Past Medical History Medical history: arthritis, asthma, CHF, COPD, coronary artery disease, GERD, glaucoma, renal disease, thyroid disease, other Additional medical history: Degenerative disk disease to back Psychiatric history: anxiety, PTSD - Past Surgical History Surgical History: appendectomy Additional surgical history: tubal - Social History Smoking Status: Former smoker Smokeless Tobacco Status: No Alcohol use: rarely Drug use: none - Family History Father History Unknown: Yes Living Status: Hx Family Cardiac Disorders: Yes Hx Family Respiratory Disorders: Yes (lung cancer) Hx Family Cancer: Yes Hx Family GI Disorders: No Hx Family Endocrine Disorder: No Hx Family Neuromuscular Disorders: No Hx Family Neurologic Disorders: No Hx Family HEENT Disorders: No Hx Family Autoimmune Disorders: No Mother History Unknown: Yes Living Status: Hx Family Cardiac Disorders: No Hx Family Respiratory Disorders: Yes Hx Family Cancer: No Hx Family GI Disorders: No Hx Family Endocrine Disorder: Yes Hx Family Neuromuscular Disorders: No Hx Family Neurologic Disorders: No Hx Family HEENT Disorders: No Hx Family Autoimmune Disorders: No Sister History Unknown: Yes Living Status: Still Living Hx Family Cardiac Disorders: Yes Hx Family Respiratory Disorders: Yes (COPD) Hx Family Cancer: Yes Hx Family GI Disorders: No Hx Family Endocrine Disorder: No Hx Family Neuromuscular Disorders: No Hx Family Neurologic Disorders: No Hx Family HEENT Disorders: No Hx Family Autoimmune Disorders: No Brother History Unknown: Yes Living Status: Hx Family Cardiac Disorders: Yes Hx Family Respiratory Disorders: No Hx Family Cancer: Yes Hx Family GI Disorders: No Hx Family Endocrine Disorder: No Hx Family Neuromuscular Disorders: No Hx Family Neurologic Disorders: No Hx Family HEENT Disorders: No Hx Family Autoimmune Disorders: No ROS unobtainable: due to endotracheal tube (intubated and sedated ) All Systems: The remainder of the systems were reviewed and are negative Physical Examination Vital Signs: Vital Signs, Last 4 Hours Temp Pulse Resp BP Pulse Ox 08/16/18 07:30 98.7 F 08/16/18 06:00 96.0 F L 112 18 99/64 98 08/16/18 05:00 110 19 87/57 93 08/16/18 04:00 96.0 F L 101 16 98/61 94 General appearance: no acute distress, asleep (intubated and sedated ) Eyes: nonicteric ENT: oropharynx dry Effort: other (on vent ) Auscultation: bilateral: clear (on vent) Cardiovascular: other (tachycardic) Gastrointestinal: hypoactive bowel sounds, soft Extremities: no cyanosis, no edema, other (Open wound ~8x4cm on L lateral leg superior to lateral malleolus with exposed peroneal tendon. ) other (intubated and sedated) Ventilator Settings Ventilator Settings: Ventilator Settings, Last 8 Hours Ventilator Tidal Volume 350 Setting Ventilator Tidal Volume 350 Setting Ventilator Tidal Volume 350 Setting Ventilator Tidal Volume 350 Setting Ventilator Tidal Volume 350 Setting Ventilator Tidal Volume 350 Setting Ventilator Tidal Volume 350 Setting Ventilator Tidal Volume 350 Setting Ventilator Tidal Volume 350 Setting Ventilator Tidal Volume 350 Setting Ventilator Tidal Volume 350 Setting Ventilator Respiratory Rate 16 Setting Ventilator Respiratory Rate 16 Setting Ventilator Respiratory Rate 16 Setting Ventilator Respiratory Rate 16 Setting Ventilator Respiratory Rate 16 Setting Ventilator Respiratory Rate 14 Setting Ventilator Respiratory Rate 14 Setting Ventilator Respiratory Rate 14 Setting Ventilator Respiratory Rate 14 Setting Ventilator Respiratory Rate 14 Setting Ventilator Respiratory Rate 14 Setting Actual Respiratory Rate 18 Actual Respiratory Rate 19 Actual Respiratory Rate 16 Actual Respiratory Rate 16 Actual Respiratory Rate 16 Actual Respiratory Rate 14 Actual Respiratory Rate 14 Actual Respiratory Rate 14 Actual Respiratory Rate 14 Positive End Expiratory 5 Pressure Positive End Expiratory 5 Pressure Positive End Expiratory 5 Pressure Positive End Expiratory 5 Pressure Positive End Expiratory 5 Pressure Positive End Expiratory 5 Pressure Positive End Expiratory 5 Pressure Positive End Expiratory 5 Pressure Positive End Expiratory 5 Pressure Positive End Expiratory 5 Pressure Positive End Expiratory 5 Pressure Peak Inspiratory Airway 30 Pressure Peak Inspiratory Airway 27 Pressure Peak Inspiratory Airway 31 Pressure Peak Inspiratory Airway 33 Pressure Peak Inspiratory Airway 32 Pressure Peak Inspiratory Airway 32 Pressure Peak Inspiratory Airway 34 Pressure Peak Inspiratory Airway 31 Pressure Peak Inspiratory Airway 33 Pressure Results - Laboratory Findings CBC and BMP: 08/16/18 03:45 08/16/18 03:45 ABG ABG pH 7.30 pH Units (7.32-7.45) L 08/16/18 05:22 ABG pCO2 48 mmHg (35-45) H 08/16/18 05:22 ABG pO2 68 mmHg (85-104) L D 08/16/18 05:22 ABG O2 Saturation 91 % (95-98) L 08/16/18 05:22 PT/INR, D-dimer PT 39.8 Seconds (9.4-12.1) H 08/16/18 06:05 Abnormal lab findings: Abnormal lab results WBC 28.9 K/mcL (4.3-11.1) H 08/16/18 03:45 RDW 16.9 % (11.5-14.5) H 08/16/18 03:45 MPV 12.7 fL (9.4-12.4) H 08/16/18 03:45 Neutrophils # 26.5 K/mcL (1.6-8.9) H 08/16/18 03:45 Monocytes # 1.5 K/mcL (0.0-1.3) H 08/16/18 03:45 Nucleated RBCs/100 WBC 0.1 /100 WBC (0) H 08/16/18 03:45 PT 39.8 Seconds (9.4-12.1) H 08/16/18 06:05 APTT 51.7 Seconds (26.0-36.0) H 08/16/18 06:05 ABG pH 7.30 pH Units (7.32-7.45) L 08/16/18 05:22 ABG pCO2 48 mmHg (35-45) H 08/16/18 05:22 ABG pO2 68 mmHg (85-104) L D 08/16/18 05:22 ABG O2 Saturation 91 % (95-98) L 08/16/18 05:22 ABG Base Excess -3 mEq/L (-2 to 3) L 08/16/18 05:22 VBG pH 7.25 pH Units (7.32-7.42) L 08/15/18 17:08 VBG pO2 90 mmHg (25-50) H 08/15/18 17:08 VBG HCO3 20 mEq/L (21-27) L 08/15/18 17:08 Sodium 135 mEq/L (136-145) L 08/16/18 03:45 Chloride 96 mEq/L (98-107) L 08/16/18 03:45 BUN 62 mg/dL (8-23) H 08/16/18 03:45 Creatinine 2.40 mg/dL (0.60-1.20) H 08/16/18 03:45 Est GFR ( Amer) 24 (> 60) L 08/16/18 03:45 Est GFR (Non-Af Amer) 20 (> 60) L 08/16/18 03:45 Glucose 165 mg/dL (70-105) H 08/16/18 03:45 POC Glucose 130 mg/dL (70-99) H 08/16/18 07:18 Calculated Osmolality 301 (280-300) H 08/16/18 03:45 Lactic Acid 5.8 mmol/L (0.5-2.2) H* 08/16/18 03:45 Calcium 7.4 mg/dL (8.6-10.3) L 08/16/18 03:45 Phosphorus 8.5 mg/dL (2.7-4.5) H 08/15/18 16:58 Total Bilirubin 1.6 mg/dL (0.3-1.0) H 08/16/18 03:45 Direct Bilirubin 1.2 mg/dL (0.0-0.2) H 08/15/18 16:58 AST 1482 Units/L (13-39) H 08/16/18 03:45 ALT > 500 Units/L (7-52) H 08/16/18 03:45 Troponin I 0.17 ng/mL (< 0.04) H* 08/16/18 03:45 B-Natriuretic Peptide 4439 pg/mL (Less than 100) H 08/15/18 16:58 Serum Total Protein 4.9 g/dL (6.4-8.9) L 08/16/18 03:45 Albumin 2.5 g/dL (3.5-5.7) L 08/16/18 03:45 Albumin/Globulin Ratio 1.0 (1.1-2.2) L 08/16/18 03:45 TSH 6.068 mcIU/mL (0.340-5.600) H 08/15/18 16:58 Free T3 1.61 pg/mL (2.50-3.90) L 08/15/18 16:58 Urine Clarity Cloudy (Clear) A 08/15/18 19:05 Urine Protein 30 mg/dL (Neg-Trace) H 08/15/18 19:05 Urine Blood Moderate (Negative) H 08/15/18 19:05 Urine Bilirubin Small (Negative) H 08/15/18 19:05 - Clinical Findings Intake & Output: Intake & Output 08/15/18 08/15/18 08/16/18 15:59 23:59 07:59 Intake Total 1311 / 1311 Output Total 201 / 201 Balance -201 / 799 1296 / 1296 Weight 40.5 kg
[2018-08-16] MEDS: Norepinephrine 4 MG in D5% in Water 250 ML IVC SCH ×3 (08:39→20:24)
[2018-08-16 09:13] LABS: Adenovirus Not Detected (Not Detect); Bordetella Pertussis Not Detected (Not Detect); Chlamydophila pneumoniae Not Detected (Not Detect); Coronavirus 229E Not Detected (Not Detect); Coronavirus HKU1 Not Detected (Not Detect); Coronavirus NL63 Not Detected (Not Detect); Coronavirus OC43 Not Detected (Not Detect); Human Metapneumovirus Not Detected (Not Detect); Human Rhinovirus/Enterovirus Not Detected (Not Detect); Influenza A Subtype 2009 H1 Not Detected (Not Detect); Influenza A Untypeable Not Detected (Not Detect); Influenza B Not Detected (Not Detect); Mycoplasma pneumoniae Not Detected (Not Detect); Parainfluenza Virus 1 Not Detected (Not Detect); Parainfluenza Virus 2 Not Detected (Not Detect); Parainfluenza Virus 3 Not Detected (Not Detect); Parainfluenza Virus 4 Not Detected (Not Detect); Respiratory Syncytial Virus Not Detected (Not Detect)
--- NOTE | 2018-08-16 12:56 | General Surgery Progress Note ---
Date of Encounter: 08/16/18 Time of Encounter: 09:00 - Assessment and Plan (1) Lactic acidosis Current Visit: Yes Status: Acute 68F with lactic acidosis likely related to dehydration and sepsis 2/2 pneumonia ; currently with respiratory failure, intubated; abdomen is unremarkable; on pressors; signficant clinical deterioration; no acute surgery recommend ICU care of pneumonia and resuscitation will continue to follow Subjective Patient reports: other (intubated overnight; ) Objective Vital Signs - Last 8 Hours Temp Pulse Resp BP Pulse Ox 08/16/18 12:08 98.3 F 08/16/18 11:31 16 96 08/16/18 10:00 112 16 86/56 100 08/16/18 09:04 16 99/64 100 08/16/18 09:00 114 16 94/54 99 08/16/18 08:00 112 16 86/61 94 08/16/18 07:50 16 99/64 95 08/16/18 07:30 98.7 F 08/16/18 07:00 113 16 105/63 97 08/16/18 06:00 96.0 F L 112 18 99/64 98 08/16/18 05:00 110 19 87/57 93 Intake and Output 08/15/18 08/16/18 08/16/18 23:59 07:59 15:59 Intake Total 1311 / 1311 Output Total 201 / 201 Balance -201 / 799 1296 / 1296 -15 Intake: IV Fluids 1311 / 1311 0.9 % Sodium Chloride 1,000 ML 1000 / 1000 @ 150 mls/hr IVC .[id number] REPLACED BY [facility] Rx #:[id number] Merrem 1,000 MG In Water for inj. (sterile) 10 ML @ 120 mls/ hr IVP Q12H REPLACED BY [facility] Rx#:[id number] AquaMephyton 10 MG In 0.9 % 51 / 51 Sodium Chloride 50 ML @ 100 mls /hr IVPB ONCE ONE Rx#: [id number] Vancocin 750 MG In 0.9 % Sodium 250 / 250 Chloride 250 ML @ 250 mls/hr IVPB ONCE ONE Rx#:[id number] Output: Stool 1 / 1 Catheter 200 / 200 15 Gastric Drainage 0 / 0 Other: Stool Size Small Stool Consistency formed Stool Color Brown Weight 40.5 kg Blood Glucose* 133 130 163 Patient Weight 08/16/18 23:59 Weight 40.5 kg - Respiratory other (vent sounds bilaterally) - Cardiovascular Cardiovascular exam: Present: RRR - Abdomen Abdomen: Present: soft (non distended; ) - Neurologic CN 2-12 grossly intact - Labs 08/16/18 03:45 08/16/18 03:45 Diabetes panel 08/15/18 08/16/18 Range/Units 22:35 03:45 Sodium 129 L 135 L (136-145) mEq/L Potassium 5.2 H 4.6 (3.5-5.1) mEq/L Chloride 95 L 96 L (98-107) mEq/L Carbon Dioxide 18 L 23 (23-29) mEq/L BUN 59 H 62 H (8-23) mg/dL Creatinine 2.47 H 2.40 H (0.60-1.20) mg/dL Glucose 147 H 165 H (70-105) mg/dL Calcium 7.4 L 7.4 L (8.6-10.3) mg/dL AST 562 H 1482 H (13-39) Units/L ALT 215 H > 500 H (7-52) Units/L Alkaline Phosphatase 73 87 (34-104) Units/L Albumin 2.5 L 2.5 L (3.5-5.7) g/dL Calcium panel 08/15/18 08/16/18 Range/Units 22:35 03:45 Calcium 7.4 L 7.4 L (8.6-10.3) mg/dL Albumin 2.5 L 2.5 L (3.5-5.7) g/dL Pituitary panel 08/15/18 08/16/18 Range/Units 22:35 03:45 Sodium 129 L 135 L (136-145) mEq/L Potassium 5.2 H 4.6 (3.5-5.1) mEq/L Chloride 95 L 96 L (98-107) mEq/L Carbon Dioxide 18 L 23 (23-29) mEq/L BUN 59 H 62 H (8-23) mg/dL Creatinine 2.47 H 2.40 H (0.60-1.20) mg/dL Glucose 147 H 165 H (70-105) mg/dL Calcium 7.4 L 7.4 L (8.6-10.3) mg/dL Adrenal panel 08/15/18 08/16/18 Range/Units 22:35 03:45 Sodium 129 L 135 L (136-145) mEq/L Potassium 5.2 H 4.6 (3.5-5.1) mEq/L Chloride 95 L 96 L (98-107) mEq/L Carbon Dioxide 18 L 23 (23-29) mEq/L BUN 59 H 62 H (8-23) mg/dL Creatinine 2.47 H 2.40 H (0.60-1.20) mg/dL Glucose 147 H 165 H (70-105) mg/dL Calcium 7.4 L 7.4 L (8.6-10.3) mg/dL Total Bilirubin 1.4 H 1.6 H (0.3-1.0) mg/dL AST 562 H 1482 H (13-39) Units/L ALT 215 H > 500 H (7-52) Units/L Alkaline Phosphatase 73 87 (34-104) Units/L Albumin 2.5 L 2.5 L (3.5-5.7) g/dL - Imaging CT scan - abdomen: report reviewed, image reviewed CT scan - chest: report reviewed, image reviewed CT scan - pelvis: report reviewed, image reviewed - VTE Documentation of Mechanical Device: Intermittent pneumatic compression device Consult Discharge Plan - Plan Referrals: Tate Franks MD [Primary Care Provider] -
[2018-08-16] MEDS: Dexmedetomidine HCl 400 MCG/100 ML MLS IVC SCH (13:11)
[2018-08-16] MEDS: FentaNYL (PF) 1,000 MCG in 0.9 % Sodium Chloride 80 ML IVC SCH ×2 (13:12→22:13)
[2018-08-16] MEDS: Meropenem 1,000 MG in Water for inj. (sterile) 20 ML 10 ML IVP SCH (13:13)
[2018-08-16] MEDS ORDERED: *HR* Phytonadione 5 MG TABLET PO ONE (15:15)
[2018-08-16 16:34] LABS: Calcium 6.9 mg/dL (8.6-10.3); Potassium 4.5 mEq/L (3.5-5.1)
[2018-08-16 18:31] LABS: Basophils % 0.2 %; Immature Granulocytes % 0.6 % (0-4); Lymphocytes % 1.9 %; Monocytes % 3.7 %; Segmented Neutrophils % 93.6 %
[2018-08-16 18:33] LABS: Basophils # 0.1 K/mcL (0.0-0.2); Hematocrit 37.5 % (35.3-44.9); Hemoglobin 12.3 g/dL (11.5-15.4); Lymphocytes # 0.6 K/mcL (0.6-4.6); Mean Corpuscular HGB Conc 32.8 g/dL (31.6-35.5); Mean Corpuscular Hemoglobin 29.6 pg (28.0-33.3); Mean Corpuscular Volume 90.4 fL (83.0-100.0); Mean Platelet Volume 13.4 fL (9.4-12.4); Monocytes # 1.1 K/mcL (0.0-1.3); Neutrophils # 28.9 K/mcL (1.6-8.9); Nucleated Red Blood Cells 0.4 /100 WBC (0); Platelet Count 132 K/mcL (140-400); Red Blood Count 4.15 M/mcL (3.82-4.97); Red Cell Distribution Width 16.6 % (11.5-14.5)
[2018-08-16 18:54] LABS: Platelet Estimate Slight Decrease (Normal)
[2018-08-16] MEDS: MetroNIDAZOLE 500 MG/100 ML 500 MG/100 ML BAG IVPB SCH (20:38)
[2018-08-16] MEDS: Meropenem 500 MG in Water for inj. (sterile) 20 ML 5 ML IVP SCH (23:22)
[2018-08-17] MEDS: Norepinephrine 4 MG in D5% in Water 250 ML IVC SCH ×5 (00:44→23:04)
[2018-08-17 03:46] LABS: Basophils # 0.1 K/mcL (0.0-0.2); Basophils % 0.3 %; Hematocrit 40.2 % (35.3-44.9); Hemoglobin 13.8 g/dL (11.5-15.4); Immature Granulocytes % 2.5 % (0-4); Lymphocytes # 0.6 K/mcL (0.6-4.6); Lymphocytes % 1.9 %; Mean Corpuscular HGB Conc 34.3 g/dL (31.6-35.5); Mean Corpuscular Hemoglobin 30.9 pg (28.0-33.3); Mean Corpuscular Volume 89.9 fL (83.0-100.0); Monocytes % 3.1 %; Neutrophils # 29.3 K/mcL (1.6-8.9); Nucleated Red Blood Cells 0.3 /100 WBC (0); Red Blood Count 4.47 M/mcL (3.82-4.97); Red Cell Distribution Width 16.6 % (11.5-14.5); Segmented Neutrophils % 92.2 %
[2018-08-17 03:49] LABS: Platelet Count 93 K/mcL (140-400)
[2018-08-17 03:51] LABS: INR 2.8; Prothrombin Time 31.5 Seconds (9.4-12.1)
[2018-08-17] MEDS: Ipratropium/Albuterol Neb 3 ML IH SCH ×5 (03:55→19:53)
[2018-08-17 04:09] LABS: Calcium 6.9 mg/dL (8.6-10.3); Potassium 3.9 mEq/L (3.5-5.1)
[2018-08-17 04:17] LABS: Platelet Estimate Decreased (Normal)
[2018-08-17 04:29] LABS: Alanine Aminotransferase > 500 Units/L (7-52); Albumin 2.2 g/dL (3.5-5.7); Albumin/Globulin Ratio 0.9 (1.1-2.2); Alkaline Phosphatase 116 Units/L (34-104); Aspartate Amino Transferase 1808 Units/L (13-39); Bilirubin,Direct 0.8 mg/dL (0.0-0.2); Bilirubin,Indirect 0.7 mg/dL (0.0-1.2); Bilirubin,Total 1.5 mg/dL (0.3-1.0); Globulin 2.4 g/dL (2.4-3.5); Total Protein 4.6 g/dL (6.4-8.9)
[2018-08-17] MEDS: Hydrocortisone Sodium Succ 100 MG/2 ML VIAL IVP SCH ×4 (04:57→23:05)
[2018-08-17] MEDS: Artificial Tears SOLN 15 ML BOTTLE BOTH EYES SCH ×5 (04:57→19:36)
[2018-08-17 05:41] LABS: ABG Base Excess 2 mEq/L (-2 to 3); ABG HCO3 27 mEq/L (21-27); ABG Oxygen Saturation 97 % (95-98); ABG PCO2 43 mmHg (35-45); ABG PO2 87 mmHg (85-104); ABG TCO2 28 mEq/L (20-26); Blood Gas Modality ASSIST CONTROL; Blood Gas PEEP 5 cm H2O; Blood Gas Respiration Rate 16; Blood Gas VT 350 cc
--- NOTE | 2018-08-17 06:20 | Pulmonology Progress Note ---
<Cesar Vasques - Last Filed: 08/17/18 09:28> Date of Encounter: 08/17/18 Time of Encounter: 06:45 Assessment and Plan (1) Septic shock Current Visit: Yes Status: Acute -Hypothermic 90.6F, tachycardic 113, tachypnic 26, hypotensive bp 79/54 in ED. -Septic shock that has been complicated with lactic acidosis and multiorgan system failure requiring pressor support with norepinephrine. NE had been weaning well yesterday but was increased overnight. Will continue to wean today as indicated. -Unclear origin at this point. Suspected aspiration pneumonia with CT chest showing near collapse middle lobe and partial collapse of dependant R lower lobe with possible superimposed pneumonia or aspiration. -Blood cultures x2 ngtd -Received 4.5L IVF since arrival. No further resuscitation would be beneficial at this point. -Troponin bump likely demand ischemia. -WBC increased from 14.4 at arrival to 28.9 yst and increased to 31.8 today. -Lactic improved from high 7.6 to 1.8 today. -Hypothermia improved, 97.5F most recently. -On empiric vanc, meropenem, azithromycin for sepsis and metronidazole added for possible colitis. Will add 500 oral vanc qid today. Will continue those for now and deescalate as indicated. -General surg evaluated her in the ED after concern of necrotic bowel and deemed her not a candidate for surgical intervention due to her unstable status. Additionally, there has not been evidence of bowel necrosis on CT. -CT L foot/ankle obtained yesterday due to open wound with peroneal tendon exposure for possible source of infection did not indicate any sign of infection. -Critical condition has improved some since arrival but still high risk of deterioration. She is easily arousable today and will try SBT with possible extubation if tolerates well. -Condition and code status discussed in detail with family and they would like to discuss before any changes are made. -Will consult palliative care today. (2) MODS (multiple organ dysfunction syndrome) Current Visit: Yes Status: Acute Acute resp failure, hypotension on pressors, CECI, and ischemic liver. As above in septic shock assessment. Case discussed in detail about her condition and code status being full code. Family wants to discuss and decide later. (3) Acute on chronic respiratory failure with hypoxia and hypercapnia Current Visit: Yes Status: Acute Hx COPD with home O2 dependance. Resp distress with hypoxia and hypercapnia in ED Intubated and on vent Initial ABG ph 7.15, paco2 50. Repeat improved 7.4, 43 Will SBT today and extubate if tolerating well. Will monitor and continue to assess resp status. (4) Acute encephalopathy Current Visit: Yes Status: Acute AMS 24 hours prior to arrival. Likely 2/2 hypercarbia, hypoglycemia, and septic shock in setting of multiple metabolic derangements. CT head without any acute process Transitioned sedation from propofol to fentanyl and precedex yesterday with continued goal estefani of 3. Will wean sedation as tolerated. (5) CECI (acute kidney injury) Current Visit: Yes Status: Acute Likely 2/2 hypotension, prerenal azotemia in the setting of septic shock. Cr 2.16, down from 2.4 yst, continues to make some urine. Dialysis was not an option when discussed with family if uop stops. Will continue to trend Cr, uop, electrolytes and replace as indicated. (6) Pneumonia, aspiration Current Visit: Yes Status: Acute Concern for aspiration pneumonia in setting of encephalopathy. CT chest showed near complete collapse of middle lobe and partial collapse of dependant R lower lobe with possible overlying pneumonia or aspiration. Intubated on vent currently. Resp status improving. Resp PCR neg Will continue anaerobe coverage with meropenem and deescalate as indicated. Qualifiers: Aspiration pneumonia type: unspecified Laterality: right Lung location: middle lobe of lung Qualified Code(s): J69.0 - Pneumonitis due to inhalation of food and vomit (7) Coagulopathy Current Visit: Yes Status: Acute INR 2.8 today. Down from 3.5 yst after Vit K. Not on home anticoagulation. Has IVC filter but never had previous clot according to family. Fibrinogen low yst at 83, will repeat today. Platelet's dropped to 97 from 160 yst. There is concern for DIC in her coagulopathic state along with hemorrhage. No evidence of hemorrhage at this point. Will continue Vit K and trend INR and monitor for bleeding. (8) Ischemic hepatitis Current Visit: Yes Status: Acute Liver function worsened. ALT >500, AST 1808, INR 2.8. This is likely due to hypotension with current septic shock. (9) Heart failure with preserved ejection fraction Current Visit: Yes Status: Acute BNP at admission 4489. Previous ECHO 08/06/16 EF 60% ECHO 08/15/18 EF 70%, moderately dilated RV, moderate RV dysfunction Stopped IVF Edematous today, likely related to fluids received (10) Lactic acidosis Current Visit: Yes Status: Acute Improved. High of 7.6, 1.8 today. (11) Supratherapeutic INR Current Visit: Yes Status: Acute INR 3.5 at high. Likely due to ischemic hepatitis in setting of septic shock. Not on home anticoagulation. Has IVC filter but never had previous clot according to family. There is concern for hemorrhage. No evidence of hemorrhage at this point. INR improved some with Vit K to 2.8. Will continue Vit K and trend INR and monitor for bleeding. (12) DVT prophylaxis Current Visit: Yes Status: Acute Mechanical prophylaxis Subjective Principal diagnosis: Septic shock with mods Interval history: No acute events overnight. She is arousable today with less sedation. Will answer simple yes no questions, will follow some basic commands. Still requiring pressors and increased some overnight. Objective PUL Vital signs: Last Vital Signs Temp 97.2 F L 08/17/18 03:50 Pulse 113 08/17/18 06:00 Resp 18 08/17/18 06:00 BP 121/72 08/17/18 06:00 Pulse Ox 98 08/17/18 06:00 General appearance: no acute distress, asleep (arousable to voice), other ( intubated and sedated) Eyes: nonicteric ENT: oropharynx dry Effort: other (on vent) Auscultation: bilateral: rales Cardiovascular: other (tachycardic) Gastrointestinal: hypoactive bowel sounds, soft Extremities: no cyanosis, edema (2-3+), other (Open wound ~8x4cm on L lateral leg superior to lateral malleolus with exposed peroneal tendon) other (Intubated and sedated. ) Ventilator Settings Ventilator Settings: Ventilator Settings, Last 8 Hours Ventilator Tidal Volume 350 Setting Ventilator Tidal Volume 350 Setting Ventilator Tidal Volume 350 Setting Ventilator Tidal Volume 350 Setting Ventilator Tidal Volume 350 Setting Ventilator Tidal Volume 350 Setting Ventilator Tidal Volume 350 Setting Ventilator Tidal Volume 350 Setting Ventilator Tidal Volume 350 Setting Ventilator Tidal Volume 350 Setting Ventilator Tidal Volume 350 Setting Ventilator Respiratory Rate 16 Setting Ventilator Respiratory Rate 16 Setting Ventilator Respiratory Rate 16 Setting Ventilator Respiratory Rate 16 Setting Ventilator Respiratory Rate 16 Setting Ventilator Respiratory Rate 16 Setting Ventilator Respiratory Rate 16 Setting Ventilator Respiratory Rate 16 Setting Ventilator Respiratory Rate 16 Setting Ventilator Respiratory Rate 16 Setting Ventilator Respiratory Rate 16 Setting Actual Respiratory Rate 26 Actual Respiratory Rate 26 Actual Respiratory Rate 19 Actual Respiratory Rate 19 Actual Respiratory Rate 16 Actual Respiratory Rate 16 Actual Respiratory Rate 16 Actual Respiratory Rate 16 Positive End Expiratory 5 Pressure Positive End Expiratory 5 Pressure Positive End Expiratory 5 Pressure Positive End Expiratory 5 Pressure Positive End Expiratory 5 Pressure Positive End Expiratory 5 Pressure Positive End Expiratory 5 Pressure Positive End Expiratory 5 Pressure Positive End Expiratory 5 Pressure Positive End Expiratory 5 Pressure Positive End Expiratory 5 Pressure Peak Inspiratory Airway 25 Pressure Peak Inspiratory Airway 25 Pressure Peak Inspiratory Airway 18 Pressure Peak Inspiratory Airway 18 Pressure Peak Inspiratory Airway 28 Pressure Peak Inspiratory Airway 28 Pressure Peak Inspiratory Airway 28 Pressure Peak Inspiratory Airway 28 Pressure Results - Laboratory Findings CBC and BMP: 08/17/18 03:25 08/17/18 03:25 ABG ABG pH 7.40 pH Units (7.32-7.45) 08/17/18 05:37 ABG pCO2 43 mmHg (35-45) 08/17/18 05:37 ABG pO2 87 mmHg (85-104) 08/17/18 05:37 ABG O2 Saturation 97 % (95-98) 08/17/18 05:37 PT/INR, D-dimer PT 31.5 Seconds (9.4-12.1) H 08/17/18 03:25 Abnormal lab findings: Abnormal lab results WBC 31.8 K/mcL (4.3-11.1) H* 08/17/18 03:25 RDW 16.6 % (11.5-14.5) H 08/17/18 03:25 Plt Count 93 K/mcL (140-400) L 08/17/18 03:25 Neutrophils # 29.3 K/mcL (1.6-8.9) H 08/17/18 03:25 Nucleated RBCs/100 WBC 0.3 /100 WBC (0) H 08/17/18 03:25 Platelet Estimate Decreased (Normal) L 08/17/18 03:25 PT 31.5 Seconds (9.4-12.1) H 08/17/18 03:25 APTT 51.7 Seconds (26.0-36.0) H 08/16/18 06:05 Fibrinogen 83 mg/dL (169-393) L* 08/16/18 08:10 ABG Total CO2 28 mEq/L (20-26) H 08/17/18 05:37 VBG pH 7.25 pH Units (7.32-7.42) L 08/15/18 17:08 VBG pO2 90 mmHg (25-50) H 08/15/18 17:08 VBG HCO3 20 mEq/L (21-27) L 08/15/18 17:08 Sodium 129 mEq/L (136-145) L 08/17/18 03:25 Chloride 93 mEq/L (98-107) L 08/17/18 03:25 BUN 61 mg/dL (8-23) H 08/17/18 03:25 Creatinine 2.16 mg/dL (0.60-1.20) H 08/17/18 03:25 Est GFR ( Amer) 27 (> 60) L 08/17/18 03:25 Est GFR (Non-Af Amer) 23 (> 60) L 08/17/18 03:25 BUN/Creatinine Ratio 28 (6-26) H 08/17/18 03:25 Glucose 168 mg/dL (70-105) H 08/17/18 03:25 POC Glucose 154 mg/dL (70-99) H 08/17/18 03:44 Calcium 6.9 mg/dL (8.6-10.3) L 08/17/18 03:25 Phosphorus 8.5 mg/dL (2.7-4.5) H 08/15/18 16:58 Total Bilirubin 1.5 mg/dL (0.3-1.0) H 08/17/18 03:25 Direct Bilirubin 0.8 mg/dL (0.0-0.2) H 08/17/18 03:25 AST 1808 Units/L (13-39) H 08/17/18 03:25 ALT > 500 Units/L (7-52) H 08/17/18 03:25 Alkaline Phosphatase 116 Units/L (34-104) H 08/17/18 03:25 Creatine Kinase 533 Units/L (30-223) H 08/16/18 08:10 Troponin I 0.17 ng/mL (< 0.04) H* 08/16/18 03:45 B-Natriuretic Peptide 4439 pg/mL (Less than 100) H 08/15/18 16:58 Serum Total Protein 4.6 g/dL (6.4-8.9) L 08/17/18 03:25 Albumin 2.2 g/dL (3.5-5.7) L 08/17/18 03:25 Albumin/Globulin Ratio 0.9 (1.1-2.2) L 08/17/18 03:25 TSH 6.068 mcIU/mL (0.340-5.600) H 08/15/18 16:58 Free T3 1.61 pg/mL (2.50-3.90) L 08/15/18 16:58 Urine Clarity Cloudy (Clear) A 08/15/18 19:05 Urine Protein 30 mg/dL (Neg-Trace) H 08/15/18 19:05 Urine Blood Moderate (Negative) H 08/15/18 19:05 Urine Bilirubin Small (Negative) H 08/15/18 19:05 - Clinical Findings Intake & Output: Intake & Output 08/16/18 08/16/18 08/17/18 15:59 23:59 07:59 Intake Total 520.8 / 520.8 504.0 / 504.0 513 / 513 Output Total 25 / 25 150 / 150 125 / 125 Balance 495.8 / 495.8 354.0 / 354.0 388 / 388 Weight 42 kg - VTE Documentation of Mechanical Device: Intermittent pneumatic compression device Consult Discharge Plan - Plan Referrals: Tate Franks MD [Primary Care Provider] - <Paulo Altman - Last Filed: 08/17/18 11:46> Date of Encounter: 08/17/18 Objective PUL Vital signs: Last Vital Signs Temp 97.5 F L 08/17/18 08:00 Pulse 112 08/17/18 10:00 Resp 20 08/17/18 11:44 BP 78/48 08/17/18 11:44 Pulse Ox 100 08/17/18 11:44 Ventilator Settings Ventilator Settings: Ventilator Settings, Last 8 Hours Ventilator Tidal Volume 350 Setting Ventilator Tidal Volume 350 Setting Ventilator Tidal Volume 350 Setting Ventilator Tidal Volume 350 Setting Ventilator Tidal Volume 350 Setting Ventilator Tidal Volume 350 Setting Ventilator Tidal Volume 350 Setting Ventilator Tidal Volume 350 Setting Ventilator Tidal Volume 350 Setting Ventilator Tidal Volume 350 Setting Ventilator Tidal Volume 350 Setting Ventilator Respiratory Rate 16 Setting Ventilator Respiratory Rate 16 Setting Ventilator Respiratory Rate 16 Setting Ventilator Respiratory Rate 16 Setting Ventilator Respiratory Rate 16 Setting Ventilator Respiratory Rate 16 Setting Ventilator Respiratory Rate 16 Setting Ventilator Respiratory Rate 16 Setting Ventilator Respiratory Rate 16 Setting Ventilator Respiratory Rate 16 Setting Ventilator Respiratory Rate 16 Setting Actual Respiratory Rate 20 Actual Respiratory Rate 20 Actual Respiratory Rate 20 Actual Respiratory Rate 25 Actual Respiratory Rate 24 Actual Respiratory Rate 24 Actual Respiratory Rate 26 Actual Respiratory Rate 26 Positive End Expiratory 5 Pressure Positive End Expiratory 5 Pressure Positive End Expiratory 5 Pressure Positive End Expiratory 5 Pressure Positive End Expiratory 5 Pressure Positive End Expiratory 5 Pressure Positive End Expiratory 5 Pressure Positive End Expiratory 5 Pressure Positive End Expiratory 5 Pressure Positive End Expiratory 5 Pressure Positive End Expiratory 5 Pressure Peak Inspiratory Airway 29 Pressure Peak Inspiratory Airway 20 Pressure Peak Inspiratory Airway 19 Pressure Peak Inspiratory Airway 19 Pressure Peak Inspiratory Airway 27 Pressure Peak Inspiratory Airway 23 Pressure Peak Inspiratory Airway 25 Pressure Peak Inspiratory Airway 25 Pressure Results - Laboratory Findings CBC and BMP: 08/17/18 03:25 08/17/18 03:25 ABG ABG pH 7.40 pH Units (7.32-7.45) 08/17/18 05:37 ABG pCO2 43 mmHg (35-45) 08/17/18 05:37 ABG pO2 87 mmHg (85-104) 08/17/18 05:37 ABG O2 Saturation 97 % (95-98) 08/17/18 05:37 PT/INR, D-dimer PT 31.5 Seconds (9.4-12.1) H 08/17/18 03:25 Abnormal lab findings: Abnormal lab results WBC 31.8 K/mcL (4.3-11.1) H* 08/17/18 03:25 RDW 16.6 % (11.5-14.5) H 08/17/18 03:25 Plt Count 93 K/mcL (140-400) L 08/17/18 03:25 Neutrophils # 29.3 K/mcL (1.6-8.9) H 08/17/18 03:25 Nucleated RBCs/100 WBC 0.3 /100 WBC (0) H 08/17/18 03:25 Platelet Estimate Decreased (Normal) L 08/17/18 03:25 PT 31.5 Seconds (9.4-12.1) H 08/17/18 03:25 APTT 51.7 Seconds (26.0-36.0) H 08/16/18 06:05 Fibrinogen 102 mg/dL (169-393) L 08/17/18 07:22 ABG Total CO2 28 mEq/L (20-26) H 08/17/18 05:37 VBG pH 7.25 pH Units (7.32-7.42) L 08/15/18 17:08 VBG pO2 90 mmHg (25-50) H 08/15/18 17:08 VBG HCO3 20 mEq/L (21-27) L 08/15/18 17:08 Sodium 129 mEq/L (136-145) L 08/17/18 03:25 Chloride 93 mEq/L (98-107) L 08/17/18 03:25 BUN 61 mg/dL (8-23) H 08/17/18 03:25 Creatinine 2.16 mg/dL (0.60-1.20) H 08/17/18 03:25 Est GFR ( Amer) 27 (> 60) L 08/17/18 03:25 Est GFR (Non-Af Amer) 23 (> 60) L 08/17/18 03:25 BUN/Creatinine Ratio 28 (6-26) H 08/17/18 03:25 Glucose 168 mg/dL (70-105) H 08/17/18 03:25 POC Glucose 142 mg/dL (70-99) H 08/17/18 07:43 Calcium 6.9 mg/dL (8.6-10.3) L 08/17/18 03:25 Phosphorus 8.5 mg/dL (2.7-4.5) H 08/15/18 16:58 Total Bilirubin 1.5 mg/dL (0.3-1.0) H 08/17/18 03:25 Direct Bilirubin 0.8 mg/dL (0.0-0.2) H 08/17/18 03:25 AST 1808 Units/L (13-39) H 08/17/18 03:25 ALT > 500 Units/L (7-52) H 08/17/18 03:25 Alkaline Phosphatase 116 Units/L (34-104) H 08/17/18 03:25 Creatine Kinase 533 Units/L (30-223) H 08/16/18 08:10 Troponin I 0.17 ng/mL (< 0.04) H* 08/16/18 03:45 B-Natriuretic Peptide 4439 pg/mL (Less than 100) H 08/15/18 16:58 Serum Total Protein 4.6 g/dL (6.4-8.9) L 08/17/18 03:25 Albumin 2.2 g/dL (3.5-5.7) L 08/17/18 03:25 Albumin/Globulin Ratio 0.9 (1.1-2.2) L 08/17/18 03:25 TSH 6.068 mcIU/mL (0.340-5.600) H 08/15/18 16:58 Free T3 1.61 pg/mL (2.50-3.90) L 08/15/18 16:58 Urine Clarity Cloudy (Clear) A 08/15/18 19:05 Urine Protein 30 mg/dL (Neg-Trace) H 08/15/18 19:05 Urine Blood Moderate (Negative) H 08/15/18 19:05 Urine Bilirubin Small (Negative) H 08/15/18 19:05 - Clinical Findings Intake & Output: Intake & Output 08/16/18 08/17/18 08/17/18 23:59 07:59 15:59 Intake Total 504.0 / 504.0 513 / 513 304 / 304 Output Total 150 / 150 265 / 265 Balance 354.0 / 354.0 248 / 248 304 / 304 Weight 42 kg - Attending Attestation I examined this patient and my medical decision-making was reviewed with the Resident Physician. I agree with the documented findings, disposition and treatment plan as described except to the extent set forth below. We independently had [id number] contact with the patient I spent 32min of Critical Care time with this patient. It involved decision making of high complexity to assess, manipulate, and support vital organ system failure and/or to prevent further life threatening deterioration of the patient' s condition. The time involved in the performance of separately reportable procedures was not counted toward critical care time. Patient seen and examined at bedside Labs, radiology, chart personally reviewed. Management was reviewed during multidisciplinary critical care rounds. RN INVASIVE: Patient remains lethargic but able to be arousable today off sedation and following some simple commands Pulm: Spontaneous breathing trial today the patient did not could not complete more than 20 minutes remains critically ill we will reattempt tomorrow after placing back on assist control overnight otherwise acceptable gas exchange. She is being treated for pneumonia likely aspiration Cards: Distributive shock remains on vasopressors but overnight the dose had to be increased but we are able to decrease this morning. Goal map 60-65. Encouragingly lactate is normalized kidney function has improved liver enzymes are trending down CONSISTENT with multiorgan system failure generally improving GI: GI prophylaxis have been given. General surgery is evaluated her for CF exploratory surgery for possible bowel necrosis and have declined surgical intervention at this time deeming it unnecessary and exceptionally high risk Nutrition: Nothing by mouth for now can likely start enteral nutrition within the next 24 hours Renal: Acute kidney injury improving slowly UOP Monitored, Cont to Trend sCr and monitor Electrolytes. ID: She presented with septic shock likely from aspiration pneumonia however white count continues to rise despite the use of broad-spectrum antimicrobials to cover aspiration pneumonia intra-abdominal sepsis urinary tract sources MRSA pseudomonas. We will add empiric treatment for Clostridium difficile he ( vancomycin orally and (clinically she seems to be improving overall so I am concerned that this may just be a laboratory finding is supposed to indicative that we are not treating a occult infection. She has had essentially a scott CT scan at this point including CT scan of the left lower leg where she has a fluid collection. Heme/Onc: She has evidence of DIC but no overt evidence of hemorrhage platelets have trended down slightly overnight at this point would continue to monitor can consider FFP or cryoprecipitate if evidence of bleeding. INR is improved from yesterday continue vitamin K. Endo: Glucose Monitored Integ/MSK: Skin Care per routine ICU Nursing Protocol to prevent ulcers. Lines: All lines examined without evidence of infection : Dispo: Remain in ICU for critical illness CODE: Full code prognosis remains guarded to poor family updated at bedside and they are going decide about goals of care once the entire family has arrived she would benefit from palliative care consultation.
[2018-08-17] MEDS: Beclomethasone 80mcg MDI IH SCH ×2 (07:41→19:53)
[2018-08-17] MEDS: Pantoprazole 40 MG VIAL IVP SCH (08:16)
[2018-08-17] MEDS: Chlorhexidine Rinse 15 ML MOUTHWASH MM SCH ×2 (08:16→19:36)
[2018-08-17] MEDS: MetroNIDAZOLE 500 MG/100 ML 500 MG/100 ML BAG IVPB SCH ×3 (08:16→23:05)
[2018-08-17] MEDS: TRIAMCINOLONE ACETONIDE 0.025% TP SCH ×2 (08:17→19:38)
[2018-08-17] MEDS: Azithromycin 500 MG in D5% in Water 250 ML IVPB SCH (08:17)
[2018-08-17] MEDS: Nystatin POWDER 30 GM BOTTLE TP SCH ×2 (08:17→19:36)
[2018-08-17] MEDS: Vancomycin Oral Soln 125 MG/2.5 ML UDC PO SCH ×4 (08:18→19:38)
[2018-08-17] MEDS: Meropenem 500 MG in Water for inj. (sterile) 20 ML 5 ML IVP SCH ×2 (11:33→23:05)
[2018-08-17] MEDS: Dexmedetomidine HCl 400 MCG/100 ML MLS IVC SCH (11:34)
[2018-08-17] MEDS: FentaNYL (PF) 1,000 MCG in 0.9 % Sodium Chloride 80 ML IVC SCH ×2 (18:11→20:25)
[2018-08-17 19:09] LABS: Basophils % 0.2 %; Red Cell Distribution Width 16.8 % (11.5-14.5)
[2018-08-17 19:10] LABS: Basophils # 0.1 K/mcL (0.0-0.2); Hematocrit 36.4 % (35.3-44.9); Hemoglobin 12.5 g/dL (11.5-15.4); Immature Granulocytes % 2.5 % (0-4); Lymphocytes # 0.4 K/mcL (0.6-4.6); Lymphocytes % 1.3 %; Mean Corpuscular HGB Conc 34.3 g/dL (31.6-35.5); Mean Corpuscular Volume 87.3 fL (83.0-100.0); Monocytes # 0.8 K/mcL (0.0-1.3); Monocytes % 2.4 %; Nucleated Red Blood Cells 0.1 /100 WBC (0); Red Blood Count 4.17 M/mcL (3.82-4.97); Segmented Neutrophils % 93.6 %
[2018-08-17 19:13] LABS: Neutrophils # 30.1 K/mcL (1.6-8.9); Platelet Count 92 K/mcL (140-400)
[2018-08-17 19:49] LABS: Platelet Estimate Decreased (Normal)
[2018-08-18] MEDS: Dexmedetomidine HCl 400 MCG/100 ML MLS IVC SCH (00:04)
[2018-08-18] MEDS: Ipratropium/Albuterol Neb 3 ML IH SCH ×7 (00:30→23:17)
[2018-08-18] MEDS: Artificial Tears SOLN 15 ML BOTTLE BOTH EYES SCH ×6 (02:30→21:05)
[2018-08-18] MEDS: FentaNYL (PF) 1,000 MCG in 0.9 % Sodium Chloride 80 ML IVC SCH ×4 (03:07→22:05)
[2018-08-18 04:21] LABS: Basophils # 0.1 K/mcL (0.0-0.2); Basophils % 0.3 %; Hematocrit 35.3 % (35.3-44.9); Hemoglobin 12.2 g/dL (11.5-15.4); Immature Granulocytes % 1.1 % (0-4); Lymphocytes # 0.3 K/mcL (0.6-4.6); Lymphocytes % 1.1 %; Mean Corpuscular HGB Conc 34.6 g/dL (31.6-35.5); Mean Corpuscular Volume 86.9 fL (83.0-100.0); Monocytes # 0.8 K/mcL (0.0-1.3); Monocytes % 2.5 %; Neutrophils # 29.4 K/mcL (1.6-8.9); Platelet Count 80 K/mcL (140-400); Red Blood Count 4.06 M/mcL (3.82-4.97); Red Cell Distribution Width 16.9 % (11.5-14.5)
[2018-08-18 04:35] LABS: Magnesium 1.2 mg/dL (1.6-2.6); Phosphorous 2.9 mg/dL (2.7-4.5); Potassium 3.2 mEq/L (3.5-5.1)
[2018-08-18 04:58] LABS: Platelet Estimate Decreased (Normal)
[2018-08-18] MEDS ORDERED: Potassium Chloride 40 MEQ, Lidocaine 1% 2 ML in D5% in Water 500 ML IVPB ONE (05:00)
[2018-08-18] MEDS: Hydrocortisone Sodium Succ 100 MG/2 ML VIAL IVP SCH ×2 (05:20→13:45)
[2018-08-18 06:00] LABS: ABG Base Excess 1 mEq/L (-2 to 3); ABG HCO3 27 mEq/L (21-27); ABG Oxygen Saturation 100 % (95-98); ABG PCO2 46 mmHg (35-45); ABG PH 7.38 pH Units (7.32-7.45); ABG PO2 284 mmHg (85-104); ABG TCO2 28 mEq/L (20-26); Blood Gas Modality PRVC; Blood Gas PEEP 5 cm H2O; Blood Gas Respiration Rate 16; Blood Gas VT 350 cc
--- NOTE | 2018-08-18 07:56 | Pulmonology Progress Note ---
<DivinaMyleszbigniew M - Last Filed: 08/18/18 09:04> Date of Encounter: 08/18/18 Objective PUL Vital signs: Last Vital Signs Temp 97.5 F L 08/18/18 04:28 Pulse 109 08/18/18 08:00 Resp 13 08/18/18 08:04 BP 80/47 08/18/18 08:04 Pulse Ox 97 08/18/18 08:04 Ventilator Settings Ventilator Settings: Ventilator Settings, Last 8 Hours Ventilator Tidal Volume 400 Setting Ventilator Tidal Volume 350 Setting Ventilator Tidal Volume 400 Setting Ventilator Tidal Volume 350 Setting Ventilator Tidal Volume 350 Setting Ventilator Tidal Volume 350 Setting Ventilator Tidal Volume 350 Setting Ventilator Tidal Volume 350 Setting Ventilator Tidal Volume 350 Setting Ventilator Tidal Volume 350 Setting Ventilator Respiratory Rate 12 Setting Ventilator Respiratory Rate 14 Setting Ventilator Respiratory Rate 12 Setting Ventilator Respiratory Rate 16 Setting Ventilator Respiratory Rate 16 Setting Ventilator Respiratory Rate 16 Setting Ventilator Respiratory Rate 16 Setting Ventilator Respiratory Rate 16 Setting Ventilator Respiratory Rate 16 Setting Ventilator Respiratory Rate 16 Setting Actual Respiratory Rate 12 Actual Respiratory Rate 13 Actual Respiratory Rate 19 Actual Respiratory Rate 19 Actual Respiratory Rate 19 Actual Respiratory Rate 16 Actual Respiratory Rate 16 Actual Respiratory Rate 16 Actual Respiratory Rate 16 Positive End Expiratory 5 Pressure Positive End Expiratory 5 Pressure Positive End Expiratory 5 Pressure Positive End Expiratory 5 Pressure Positive End Expiratory 5 Pressure Positive End Expiratory 5 Pressure Positive End Expiratory 5 Pressure Positive End Expiratory 5 Pressure Positive End Expiratory 5 Pressure Positive End Expiratory 5 Pressure Peak Inspiratory Airway 11 Pressure Peak Inspiratory Airway 11 Pressure Peak Inspiratory Airway 15 Pressure Peak Inspiratory Airway 15 Pressure Peak Inspiratory Airway 15 Pressure Peak Inspiratory Airway 27 Pressure Results - Laboratory Findings CBC and BMP: 08/18/18 04:00 08/18/18 03:55 ABG ABG pH 7.38 pH Units (7.32-7.45) 08/18/18 05:58 ABG pCO2 46 mmHg (35-45) H 08/18/18 05:58 ABG pO2 284 mmHg (85-104) H 08/18/18 05:58 ABG O2 Saturation 100 % (95-98) H 08/18/18 05:58 PT/INR, D-dimer PT 31.5 Seconds (9.4-12.1) H 08/17/18 03:25 Abnormal lab findings: Abnormal lab results WBC 30.9 K/mcL (4.3-11.1) H* 08/18/18 04:00 RDW 16.9 % (11.5-14.5) H 08/18/18 04:00 Plt Count 80 K/mcL (140-400) L 08/18/18 04:00 Neutrophils # 29.4 K/mcL (1.6-8.9) H 08/18/18 04:00 Lymphocytes # 0.3 K/mcL (0.6-4.6) L 08/18/18 04:00 Nucleated RBCs/100 WBC 0.1 /100 WBC (0) H 08/17/18 16:00 Platelet Estimate Decreased (Normal) L 08/18/18 04:00 PT 31.5 Seconds (9.4-12.1) H 08/17/18 03:25 APTT 51.7 Seconds (26.0-36.0) H 08/16/18 06:05 Fibrinogen 102 mg/dL (169-393) L 08/17/18 07:22 ABG pCO2 46 mmHg (35-45) H 08/18/18 05:58 ABG pO2 284 mmHg (85-104) H 08/18/18 05:58 ABG Total CO2 28 mEq/L (20-26) H 08/18/18 05:58 ABG O2 Saturation 100 % (95-98) H 08/18/18 05:58 VBG pH 7.25 pH Units (7.32-7.42) L 08/15/18 17:08 VBG pO2 90 mmHg (25-50) H 08/15/18 17:08 VBG HCO3 20 mEq/L (21-27) L 08/15/18 17:08 Sodium 128 mEq/L (136-145) L 08/18/18 03:55 Potassium 3.2 mEq/L (3.5-5.1) L 08/18/18 03:55 Chloride 94 mEq/L (98-107) L 08/18/18 03:55 BUN 49 mg/dL (8-23) H 08/18/18 03:55 Creatinine 1.36 mg/dL (0.60-1.20) H 08/18/18 03:55 Est GFR ( Amer) 47 (> 60) L 08/18/18 03:55 Est GFR (Non-Af Amer) 38 (> 60) L 08/18/18 03:55 BUN/Creatinine Ratio 36 (6-26) H 08/18/18 03:55 Glucose 158 mg/dL (70-105) H 08/18/18 03:55 POC Glucose 173 mg/dL (70-99) H 08/18/18 07:31 Calcium 7.0 mg/dL (8.6-10.3) L 08/18/18 03:55 Magnesium 1.2 mg/dL (1.6-2.6) L 08/18/18 03:55 Total Bilirubin 1.5 mg/dL (0.3-1.0) H 08/17/18 03:25 Direct Bilirubin 0.8 mg/dL (0.0-0.2) H 08/17/18 03:25 AST 1808 Units/L (13-39) H 08/17/18 03:25 ALT > 500 Units/L (7-52) H 08/17/18 03:25 Alkaline Phosphatase 116 Units/L (34-104) H 08/17/18 03:25 Creatine Kinase 533 Units/L (30-223) H 08/16/18 08:10 Troponin I 0.17 ng/mL (< 0.04) H* 08/16/18 03:45 B-Natriuretic Peptide 4439 pg/mL (Less than 100) H 08/15/18 16:58 Serum Total Protein 4.6 g/dL (6.4-8.9) L 08/17/18 03:25 Albumin 2.2 g/dL (3.5-5.7) L 08/17/18 03:25 Albumin/Globulin Ratio 0.9 (1.1-2.2) L 08/17/18 03:25 TSH 6.068 mcIU/mL (0.340-5.600) H 08/15/18 16:58 Free T3 1.61 pg/mL (2.50-3.90) L 08/15/18 16:58 Urine Clarity Cloudy (Clear) A 08/15/18 19:05 Urine Protein 30 mg/dL (Neg-Trace) H 08/15/18 19:05 Urine Blood Moderate (Negative) H 08/15/18 19:05 Urine Bilirubin Small (Negative) H 08/15/18 19:05 - Clinical Findings Intake & Output: Intake & Output 09/23/18 09/24/18 09/24/18 23:59 07:59 15:59 Intake Total 654 / 654 909 / 909 Output Total 88 / 88 370 / 370 Balance 566 / 566 539 / 539 Weight 46.5 kg Consult Discharge Plan - Plan Referrals: Tate Franks MD [Primary Care Provider] - - Attending Attestation I examined this patient and my medical decision-making was reviewed with the Resident Physician. I agree with the documented findings, disposition and treatment plan as described except to the extent set forth below. Patient seen and examined. Labs, radiology, chart personally reviewed. Agree with resident's history and physical, assessment, plan with following comments: [employer]NA[employer]: Patient does not follows commands, patient with sedation for vent synchrony and comfort. Pulmonary: Acceptable oxygenation and ventilation, however clinically there is evidence of intrinsic PEEP and I have suggested vent setting to relieve some of that intrinsic PEEP especially since patient is in shock. Cardiovascular: Patient with septic shock picture and on vasopressor. Prognosis is poor and CODE STATUS of DNR comfort care arrest is appropriate, however I have a feeling patient will not improve and may need compassionate extubation. Continue supportive care at this time. GI: Nutrition per dietary and GI prophylaxis per routine Heme: DVT prophylaxis per routine ID: Continue antibiotics and plan to de-escalation Renal; urine out put and renal funtion reviewed. There is no urgent need for hemodialysis at this time. However we will consider nephrology consultation if her condition deteriorate to the point that she will need renal replacement therapy. Endorcine: blood glucose is monitored Lines: all lines checked and no evidence of infections Skin: skin care to prevent pressure ulcers per nursing routine care I spent 35 min of Critical Care time with this patient. It involved decision making of high complexity to assess, manipulate, and support vital organ system failure and/or to prevent further life threatening deterioration of the patient' s condition. The time involved in the performance of separately reportable procedures was not counted toward critical care time. <Angel Rose - Last Filed: 08/19/18 06:31> Date of Encounter: 08/19/18 Time of Encounter: 09:30 Assessment and Plan (1) Septic shock Current Visit: Yes Status: Acute Blood cultures pending Continue treatment with vancomycin, azithromycin and Flagyl pending blood culture results Blood pressure is currently 106/67 Continue to monitor vital signs to compare with septic shock criteria (2) Multiorgan failure Current Visit: Yes Status: Acute Patient code status changed from full code to DNRCC-arrest this morning as per family's request (3) Acute on chronic respiratory failure with hypoxia and hypercapnia Current Visit: Yes Status: Acute Patient is currently intubated and mechanically ventilated (4) Community acquired pneumonia Current Visit: Yes Status: Acute Chest x-ray shows small right-sided pleural effusion along with hyperinflation consistent with patient history of COPD Likely source of sepsis was assumed to be from pneumonia versus mesenteric ischemia Blood cultures pending Continue treatment with vancomycin, azithromycin, and Flagyl pending blood culture results Qualifiers: Laterality: unspecified laterality Qualified Code(s): J18.9 - Pneumonia, unspecified organism (5) CECI (acute kidney injury) Current Visit: Yes Status: Acute CECI likely due to hypoperfusion in the setting of septic shock. Sepsis IV fluids given Continue to monitor (6) Acute encephalopathy Current Visit: Yes Status: Acute Patient is currently non-arousable. CT scan of brain revealed "New subacute to less likely chronic appearing infarction in the left parietal lobe near the occipital lobe + Increased mild cerebral atrophy with minimal chronic small vessel ischemic changes." (7) COPD (chronic obstructive pulmonary disease) Current Visit: Yes Status: Chronic Continue stress dose steroids and bronchodilators Qualifiers: COPD type: chronic bronchitis Chronic bronchitis type: unspecified Qualified Code(s): J42 - Unspecified chronic bronchitis (8) CHF (congestive heart failure) Current Visit: No Status: Chronic Continue close monitoring for fluid overload Qualifiers: Heart failure type: diastolic Heart failure chronicity: chronic Qualified Code(s): I50.32 - Chronic diastolic (congestive) heart failure (9) HTN (hypertension) Current Visit: No Status: Chronic Hold antihypertensive medication due to septic shock Qualifiers: Hypertension type: essential hypertension Qualified Code(s): I10 - Essential (primary) hypertension (10) Protein calorie malnutrition Current Visit: No Status: Chronic Nutrition consulted Consider supplementation Qualifiers: Protein-calorie malnutrition severity: unspecified severity Qualified Code( s): E46 - Unspecified protein-calorie malnutrition (11) DVT prophylaxis Current Visit: Yes Status: Acute EPCDs (12) Supratherapeutic INR Current Visit: Yes Status: Acute INR is currently 2.8. We will continue to monitor Subjective Principal diagnosis: Septic shock with mods Interval history: RN reports intermittent bouts of tachycardia with ectopy overnight, seconds in duration and spontaneously resolving. The patient is unarousable this morning. Patient family initially at bedside along with Dr. Hurtado, discussing options for home hospice care and the likelihood of extubation today. Family requests patient DNR status to be changed to DNRCC-A. Objective PUL Vital signs: Last Vital Signs Temp 97.5 F L 08/18/18 04:28 Pulse 109 08/18/18 07:00 Resp 13 08/18/18 07:00 BP 80/47 08/18/18 07:00 Pulse Ox 97 08/18/18 07:00 General appearance: no acute distress, asleep Eyes: nonicteric Effort: other (Intubated with mechanical ventilation) Auscultation: bilateral: wheezes, rales Cardiovascular: regular rate and rhythm Gastrointestinal: normoactive bowel sounds, soft, non-tender, non-distended Integumentary: rash, decubitus ulcer Extremities: no cyanosis, edema Ventilator Settings Ventilator Settings: Ventilator Settings, Last 8 Hours Ventilator Tidal Volume 350 Setting Ventilator Tidal Volume 400 Setting Ventilator Tidal Volume 350 Setting Ventilator Tidal Volume 350 Setting Ventilator Tidal Volume 350 Setting Ventilator Tidal Volume 350 Setting Ventilator Tidal Volume 350 Setting Ventilator Tidal Volume 350 Setting Ventilator Tidal Volume 350 Setting Ventilator Tidal Volume 350 Setting Ventilator Tidal Volume 350 Setting Ventilator Tidal Volume 350 Setting Ventilator Respiratory Rate 14 Setting Ventilator Respiratory Rate 12 Setting Ventilator Respiratory Rate 16 Setting Ventilator Respiratory Rate 16 Setting Ventilator Respiratory Rate 16 Setting Ventilator Respiratory Rate 16 Setting Ventilator Respiratory Rate 16 Setting Ventilator Respiratory Rate 16 Setting Ventilator Respiratory Rate 16 Setting Ventilator Respiratory Rate 16 Setting Ventilator Respiratory Rate 16 Setting Ventilator Respiratory Rate 16 Setting Actual Respiratory Rate 13 Actual Respiratory Rate 19 Actual Respiratory Rate 19 Actual Respiratory Rate 19 Actual Respiratory Rate 16 Actual Respiratory Rate 16 Actual Respiratory Rate 16 Actual Respiratory Rate 16 Actual Respiratory Rate 16 Actual Respiratory Rate 16 Actual Respiratory Rate 19 Positive End Expiratory 5 Pressure Positive End Expiratory 5 Pressure Positive End Expiratory 5 Pressure Positive End Expiratory 5 Pressure Positive End Expiratory 5 Pressure Positive End Expiratory 5 Pressure Positive End Expiratory 5 Pressure Positive End Expiratory 5 Pressure Positive End Expiratory 5 Pressure Positive End Expiratory 5 Pressure Positive End Expiratory 5 Pressure Positive End Expiratory 5 Pressure Peak Inspiratory Airway 11 Pressure Peak Inspiratory Airway 15 Pressure Peak Inspiratory Airway 15 Pressure Peak Inspiratory Airway 15 Pressure Peak Inspiratory Airway 27 Pressure Peak Inspiratory Airway 27 Pressure Peak Inspiratory Airway 23 Pressure Peak Inspiratory Airway 18 Pressure Results - Laboratory Findings CBC and BMP: 08/18/18 04:00 08/18/18 03:55 ABG ABG pH 7.38 pH Units (7.32-7.45) 08/18/18 05:58 ABG pCO2 46 mmHg (35-45) H 08/18/18 05:58 ABG pO2 284 mmHg (85-104) H 08/18/18 05:58 ABG O2 Saturation 100 % (95-98) H 08/18/18 05:58 PT/INR, D-dimer PT 31.5 Seconds (9.4-12.1) H 08/17/18 03:25 Abnormal lab findings: Abnormal lab results WBC 30.9 K/mcL (4.3-11.1) H* 08/18/18 04:00 RDW 16.9 % (11.5-14.5) H 08/18/18 04:00 Plt Count 80 K/mcL (140-400) L 08/18/18 04:00 Neutrophils # 29.4 K/mcL (1.6-8.9) H 08/18/18 04:00 Lymphocytes # 0.3 K/mcL (0.6-4.6) L 08/18/18 04:00 Nucleated RBCs/100 WBC 0.1 /100 WBC (0) H 08/17/18 16:00 Platelet Estimate Decreased (Normal) L 08/18/18 04:00 PT 31.5 Seconds (9.4-12.1) H 08/17/18 03:25 APTT 51.7 Seconds (26.0-36.0) H 08/16/18 06:05 Fibrinogen 102 mg/dL (169-393) L 08/17/18 07:22 ABG pCO2 46 mmHg (35-45) H 08/18/18 05:58 ABG pO2 284 mmHg (85-104) H 08/18/18 05:58 ABG Total CO2 28 mEq/L (20-26) H 08/18/18 05:58 ABG O2 Saturation 100 % (95-98) H 08/18/18 05:58 VBG pH 7.25 pH Units (7.32-7.42) L 08/15/18 17:08 VBG pO2 90 mmHg (25-50) H 08/15/18 17:08 VBG HCO3 20 mEq/L (21-27) L 08/15/18 17:08 Sodium 128 mEq/L (136-145) L 08/18/18 03:55 Potassium 3.2 mEq/L (3.5-5.1) L 08/18/18 03:55 Chloride 94 mEq/L (98-107) L 08/18/18 03:55 BUN 49 mg/dL (8-23) H 08/18/18 03:55 Creatinine 1.36 mg/dL (0.60-1.20) H 08/18/18 03:55 Est GFR ( Amer) 47 (> 60) L 08/18/18 03:55 Est GFR (Non-Af Amer) 38 (> 60) L 08/18/18 03:55 BUN/Creatinine Ratio 36 (6-26) H 08/18/18 03:55 Glucose 158 mg/dL (70-105) H 08/18/18 03:55 POC Glucose 173 mg/dL (70-99) H 08/18/18 07:31 Calcium 7.0 mg/dL (8.6-10.3) L 08/18/18 03:55 Magnesium 1.2 mg/dL (1.6-2.6) L 08/18/18 03:55 Total Bilirubin 1.5 mg/dL (0.3-1.0) H 08/17/18 03:25 Direct Bilirubin 0.8 mg/dL (0.0-0.2) H 08/17/18 03:25 AST 1808 Units/L (13-39) H 08/17/18 03:25 ALT > 500 Units/L (7-52) H 08/17/18 03:25 Alkaline Phosphatase 116 Units/L (34-104) H 08/17/18 03:25 Creatine Kinase 533 Units/L (30-223) H 08/16/18 08:10 Troponin I 0.17 ng/mL (< 0.04) H* 08/16/18 03:45 B-Natriuretic Peptide 4439 pg/mL (Less than 100) H 08/15/18 16:58 Serum Total Protein 4.6 g/dL (6.4-8.9) L 08/17/18 03:25 Albumin 2.2 g/dL (3.5-5.7) L 08/17/18 03:25 Albumin/Globulin Ratio 0.9 (1.1-2.2) L 08/17/18 03:25 TSH 6.068 mcIU/mL (0.340-5.600) H 08/15/18 16:58 Free T3 1.61 pg/mL (2.50-3.90) L 08/15/18 16:58 Urine Clarity Cloudy (Clear) A 08/15/18 19:05 Urine Protein 30 mg/dL (Neg-Trace) H 08/15/18 19:05 Urine Blood Moderate (Negative) H 08/15/18 19:05 Urine Bilirubin Small (Negative) H 08/15/18 19:05 - Diagnostic Findings Chest x-ray: image reviewed - Clinical Findings Intake & Output: Intake & Output 08/17/18 08/17/18 08/18/18 15:59 23:59 07:59 Intake Total 658 / 658 654 / 654 909 / 909 Output Total 440 / 440 88 / 88 370 / 370 Balance 218 / 218 566 / 566 539 / 539 Weight 46.5 kg - VTE Documentation of Mechanical Device: Intermittent pneumatic compression device
[2018-08-18] MEDS: Beclomethasone 80mcg MDI IH SCH (08:02)
[2018-08-18] MEDS: Azithromycin 500 MG in D5% in Water 250 ML IVPB SCH (09:29)
[2018-08-18] MEDS: Norepinephrine 4 MG in D5% in Water 250 ML IVC SCH (09:29)
[2018-08-18] MEDS: MetroNIDAZOLE 500 MG/100 ML 500 MG/100 ML BAG IVPB SCH (09:30)
[2018-08-18] MEDS: Vancomycin Oral Soln 125 MG/2.5 ML UDC PO SCH (09:30)
[2018-08-18] MEDS: Pantoprazole 40 MG VIAL IVP SCH (09:30)
[2018-08-18] MEDS: Chlorhexidine Rinse 15 ML MOUTHWASH MM SCH ×2 (09:30→21:06)
[2018-08-18] MEDS: TRIAMCINOLONE ACETONIDE 0.025% TP SCH (09:31)
[2018-08-18] MEDS: Nystatin POWDER 30 GM BOTTLE TP SCH ×2 (09:31→21:06)
[2018-08-18] MEDS ORDERED: *HR* LORazepam 2 MG/ML VIAL IVP ONE (11:45)
[2018-08-18] MEDS ORDERED: *HR* FentaNYL (PF) 100 MCG/2 ML VIAL IVP PRN (11:45)
[2018-08-18] MEDS ORDERED: Atropine 1% Opth Drops 100 DROP/5 ML BOTTLE SL PRN (11:46)
--- NOTE | 2018-08-18 11:59 | Palliative - Consult Note ---
Date of Encounter: 08/18/18 Time of Encounter: 11:15 - Assessment and Plan (1) Dyspnea Current Visit: Yes Status: Acute Assessment and plan: She will be extubated later and oxygen provided by nasal cannula for comfort. Continue aerosols/atb for time being. Continue Fentanyl drip and bolus as needed for dyspnea. Qualifiers: Dyspnea type: unspecified Qualified Code(s): R06.00 - Dyspnea, unspecified (2) Generalized pain Current Visit: Yes Status: Acute Assessment and plan: Utilize Fentanyl at present time to manage discomfort. MOnitor and titrate as necessary (3) Anxiety Current Visit: Yes Status: Acute Assessment and plan: She remains on small amount Precedex. Will have Lorazepam available if needed and titrate as necessary. (4) Goals of care, counseling/discussion Current Visit: Yes Status: Acute Assessment and plan: Family meeting with ICU asp web developer, resident, myself, primary nurse Arlene, and wood floor layer services with patient 4 children and ex- regarding goals of care. Dr. Murcia updated family on clinical condition. Family expressed how she stated she did not want life support more than a few days, and her ex- (who remains her caregiver) stated that last week she told him she was "ready to ". Patient has not shown much improvement over the last 72 hours. Family came to decision that they would like to compassionately extubate patient and make her comfortable. They do not desire further resuscitative measures and code status transitioned to DNRCC. Will continue other supportive care for now and see how she does. Will have comfort medications available if needed. Provided emotional support. She will be freed from ventilator once family arrives and are ready. (5) CECI (acute kidney injury) Current Visit: Yes Status: Acute (6) Acute on chronic respiratory failure with hypoxia and hypercapnia Current Visit: Yes Status: Acute (7) Septic shock Current Visit: Yes Status: Acute Palliative-CN HPI - Data of Consult Consult date: 08/18/18 Requesting Physician: Evangelist Pual MD Primary Care Provider: Tate Franks MD - Consult Narrative History of present illness: Ms. Bautista is a 68 year old female who presented to the ED from home with hypoglycemia, and increased confusion. Patient is intubated in the ICU, so HPI taken from family at bedside, medical record review, and other providers. She apparently has a history of chronic abd pain of 3 years ago, which has led to debilitation. She lives with ex-, who is her caregiver. She eats little , and has had a great deal of weight loss over the past couple of years. Medical history includes COPD on home oxygen, CHF, GERD, CAD. She also has history of left hip pain. Patient has preferred to lay on her right side causing deep tissue injury right hip. She was admitted to ICU with diagnosis of septic shock, is intubated, and is still requiring vasopressor support. Upon my visit, she is minimally responsive and family is at bedside. Meeting just held with family. She appears comfortable and in no distress. Norepinephrine remains at 8/hr. Left lower extremity is wrapped with gauze r/t weeping. CC: Evangelist Paul MD - Time Spent with Patient Time: Total time spent is greater than 50% in coordination of care (as documented) at patient's floor/unit and/or counseling patient: Greater than 35 minutes (Total of time spent with pt/family in counseling and coordination of care equals 75 minutes) Past Med Surg Social Fam HX - Past Medical History Medical history: arthritis, asthma, CHF, COPD, coronary artery disease, GERD, glaucoma, renal disease, thyroid disease, other Additional medical history: Degenerative disk disease to back Psychiatric history: anxiety, PTSD - Past Surgical History Surgical History: appendectomy Additional surgical history: tubal - Social History Smoking Status: Former smoker Smokeless Tobacco Status: No Alcohol use: rarely Drug use: none - Family History Father History Unknown: Yes Living Status: Hx Family Cardiac Disorders: Yes Hx Family Respiratory Disorders: Yes (lung cancer) Hx Family Cancer: Yes Hx Family GI Disorders: No Hx Family Endocrine Disorder: No Hx Family Neuromuscular Disorders: No Hx Family Neurologic Disorders: No Hx Family HEENT Disorders: No Hx Family Autoimmune Disorders: No Mother History Unknown: Yes Living Status: Hx Family Cardiac Disorders: No Hx Family Respiratory Disorders: Yes Hx Family Cancer: No Hx Family GI Disorders: No Hx Family Endocrine Disorder: Yes Hx Family Neuromuscular Disorders: No Hx Family Neurologic Disorders: No Hx Family HEENT Disorders: No Hx Family Autoimmune Disorders: No Sister History Unknown: Yes Living Status: Still Living Hx Family Cardiac Disorders: Yes Hx Family Respiratory Disorders: Yes (COPD) Hx Family Cancer: Yes Hx Family GI Disorders: No Hx Family Endocrine Disorder: No Hx Family Neuromuscular Disorders: No Hx Family Neurologic Disorders: No Hx Family HEENT Disorders: No Hx Family Autoimmune Disorders: No Brother History Unknown: Yes Living Status: Hx Family Cardiac Disorders: Yes Hx Family Respiratory Disorders: No Hx Family Cancer: Yes Hx Family GI Disorders: No Hx Family Endocrine Disorder: No Hx Family Neuromuscular Disorders: No Hx Family Neurologic Disorders: No Hx Family HEENT Disorders: No Hx Family Autoimmune Disorders: No Medications and Allergies Albuterol Sulfate [Proair Hfa] 2 puff IH Q4HR PRN 03/26/18 [History] Beclomethasone Diprop 80mcg [QVAR 80 mcg] 2 puff IH BID 03/26/18 [History] Docusate [Colace] 200 mg PO BID 03/26/18 [History] FentaNYL PATCH [Duragesic] 75 mcg TD Q72H 03/26/18 [History] Guaifenesin [Mucinex] 600 mg PO BID PRN 03/26/18 [History] Ipratropium/Albuterol Neb [Duoneb] 3 ml IH Q4HR 03/26/18 [History] Omeprazole [PriLOSEC] 40 mg PO DAILY 03/26/18 [History] Ondansetron HCl [Zofran] 4 mg PO TID PRN 03/26/18 [History] Dicyclomine [Bentyl] 20 mg PO TID 03/27/18 [History] diazePAM [Valium] 2 mg PO DAILY PRN 03/27/18 [History] Metoprolol [Lopressor] 25 mg PO BID #30 tablet 03/29/18 [Rx] Acetaminophen [Tylenol] 500 mg PO Q6HR PRN 08/15/18 [History] Albuterol Neb [Proventil Neb] 2.5 mg IH Q4HR 08/15/18 [History] Carvedilol [Coreg] 3.125 mg PO BID 08/15/18 [History] Nystatin POWDER [Nystop] 1 appl TP BID 08/15/18 [History] Omeprazole [PriLOSEC] 40 mg PO DAILY 08/15/18 [History] Triamcinolone Acetonide 15 gm TP BID 08/15/18 [History] 3 Allergy/AdvReac Type Severity Reaction Status Date / Time aspirin Allergy Hives Verified 09/25/17 11:53 cefpodoxime [From Vantin] Allergy Hives Verified 09/25/17 11:53 Cephalosporins Allergy Hives Verified 09/25/17 11:53 ciprofloxacin [From Cipro] Allergy Hives Verified 09/25/17 11:53 diltiazem [From Cardizem] Allergy Hives Verified 09/25/17 12:21 hydrocodone Allergy Hives Verified 09/25/17 11:53 moxifloxacin Allergy Hives Verified 09/25/17 11:53 propoxyphene Allergy Hives Verified 09/25/17 11:53 sodium bicarbonate Allergy Hives Verified 09/25/17 11:53 Sulfa (Sulfonamide Allergy Hives Verified 09/25/17 11:53 Antibiotics) tramadol Allergy Hives Verified 09/25/17 11:53 beta-lactam Allergy Hives Uncoded 09/25/17 11:53 cetpodoxime Allergy Hives Uncoded 09/25/17 11:53 iv dye Allergy See Uncoded 09/25/17 12:20 Comments multivitamins Allergy Hives Uncoded 09/25/17 11:53 ROS unobtainable: due to endotracheal tube Palliative Care-Exam - Constitutional Vitals: Temp Pulse Resp BP Pulse Ox 97.9 F 102 18 111/71 98 08/18/18 08:00 08/18/18 10:00 08/18/18 11:30 08/18/18 11:30 08/18/18 11:30 General appearance: Present: no acute distress - Head Head Exam: Present: normal inspection, normocephalic - Eye Eye exam: Present: normal appearance, PERRL - Respiratory Respiratory exam: Present: decreased breath sounds, CTAB - Cardiovascular Cardiovascular exam: Present: +S1, tachycardia - GI/Abdominal Exam GI/Abdominal exam: Present: diminished bowel sounds, soft - Catheter Type: Urethral ([place]) - Extremities Exam Additional comments: Right lower extremity wrapped with dressing D/I. Left with 3+ pedal edema. - Neurological Exam Additional comments: Sedated and on ventilator - Skin Skin exam: Present: dry, pallor, warm Internal Medicine - CN: Reslt - Labs CBC & Chem 7: 08/18/18 04:00 08/18/18 03:55 Labs: Short CBC 08/17/18 08/18/18 Range/Units 16:00 04:00 WBC 32.2 H* 30.9 H* (4.3-11.1) K/mcL Hgb 12.5 12.2 (11.5-15.4) g/dL Hct 36.4 35.3 (35.3-44.9) % Plt Count 92 L 80 L (140-400) K/mcL Neutrophils # 30.1 H 29.4 H (1.6-8.9) K/mcL BMP 08/18/18 03:55 Sodium 128 L Potassium 3.2 L Chloride 94 L Carbon Dioxide 28 BUN 49 H Creatinine 1.36 H Glucose 158 H Calcium 7.0 L - ABG Interpretation ABG results: ABG ABG pH 7.38 pH Units (7.32-7.45) 08/18/18 05:58 ABG pCO2 46 mmHg (35-45) H 08/18/18 05:58 ABG pO2 284 mmHg (85-104) H 08/18/18 05:58 ABG O2 Saturation 100 % (95-98) H 08/18/18 05:58 PT/INR, D-dimer PT 31.5 Seconds (9.4-12.1) H 08/17/18 03:25 Consult Discharge Plan - Plan Referrals: Tate Franks MD [Primary Care Provider] - Palliative Quality Palliative Quality: Screen for Code Status: Yes, Screen for Goals of Care: Yes, Screen for Pain: Yes, If Pain Regimen Started, Initiate Bowel Regimen: Yes, Screen for Nausea/Vomitting: NA Code Status: 08/18/18 08:53 CODE [Resuscitation Status: Active] [RES] Routine Comment: Resuscitation Status: DNR-Comfort Care-Arrest 08/18/18 11:08 DNR [Resuscitation Status: Active] [RES] Routine Comment: Resuscitation Status: DNR-Comfort Care
[2018-08-18] MEDS ORDERED: Atropine Sulfate 1% 40 DROP/2 ML BOTTLE SL PRN (12:30)
[2018-08-18] MEDS: Meropenem 500 MG in Water for inj. (sterile) 20 ML 5 ML IVP SCH (13:43)
--- NOTE | 2018-08-18 17:46 | Electrocardiograph Report ---
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
[2018-08-18] MEDS: *HR* LORazepam 2 MG/ML VIAL IVP PRN ×2 (18:28→21:21)
[2018-08-18] MEDS: Budesonide Neb 0.5 MG/2 ML IH SCH (20:09)
[2018-08-19] MEDS: Hydrocortisone Sodium Succ 100 MG/2 ML VIAL IVP SCH ×3 (00:01→17:48)
[2018-08-19] MEDS: Meropenem 500 MG in Water for inj. (sterile) 20 ML 5 ML IVP SCH (00:01)
[2018-08-19] MEDS: Artificial Tears SOLN 15 ML BOTTLE BOTH EYES SCH ×6 (01:09→21:56)
[2018-08-19] MEDS: FentaNYL (PF) 1,000 MCG in 0.9 % Sodium Chloride 80 ML IVC SCH ×2 (02:54→08:06)
[2018-08-19] MEDS: Ipratropium/Albuterol Neb 3 ML IH SCH ×5 (04:15→22:55)
[2018-08-19] MEDS: Budesonide Neb 0.5 MG/2 ML IH SCH ×2 (07:42→22:55)
--- NOTE | 2018-08-19 08:59 | Palliative Progress Note ---
Date of Encounter: 08/19/18 Time of Encounter: 11:20 - Assessment and plan (1) Dyspnea Current Visit: Yes Status: Acute Assessment and plan: Continue supportive oxygen and Fentanyl. Titrate as necessary. Qualifiers: Dyspnea type: unspecified Qualified Code(s): R06.00 - Dyspnea, unspecified (2) Generalized pain Current Visit: Yes Status: Acute Assessment and plan: Continue Fentanyl with IV boluses for breakthrough pain. Received x1 last 24 hours. (3) Anxiety Current Visit: Yes Status: Acute Assessment and plan: Continue Lorazepam PRN. Required x 2 last 24 hours. (4) Goals of care, counseling/discussion Current Visit: Yes Status: Acute Assessment and plan: Spent time with daughter this am. She appears to be actively dying - I do not think at this point continuing IV antibiotics are providing her with any comfort. Will discuss with other family members when they arrive. Daughter at bedside states that other family members are still struggling with decisions. Provided emotional support. D/W Dr. Mullen. (5) CECI (acute kidney injury) Current Visit: Yes Status: Acute (6) Acute on chronic respiratory failure with hypoxia and hypercapnia Current Visit: Yes Status: Acute (7) Septic shock Current Visit: Yes Status: Acute - Time Spent With Patient Total time spent is greater than 50% in coordination of care (as documented) at patient's floor/unit and/or counseling patient: 25 - 35 minutes - Subjective Interval history: Patient did have period of wakefulness yesterday pm however, has been nonresponsive this am. Daughter at bedside is only family member there during my visit. She appears comfortable. Lab was in this am and was unable to draw blood. She has remained quite hypotensive. New mottling noted to lower extremities. - Constitutional Vitals: Abnormal lab results WBC 30.9 K/mcL (4.3-11.1) H* 08/18/18 04:00 RDW 16.9 % (11.5-14.5) H 08/18/18 04:00 Plt Count 80 K/mcL (140-400) L 08/18/18 04:00 Neutrophils # 29.4 K/mcL (1.6-8.9) H 08/18/18 04:00 Lymphocytes # 0.3 K/mcL (0.6-4.6) L 08/18/18 04:00 Nucleated RBCs/100 WBC 0.1 /100 WBC (0) H 08/17/18 16:00 Platelet Estimate Decreased (Normal) L 08/18/18 04:00 PT 31.5 Seconds (9.4-12.1) H 08/17/18 03:25 APTT 51.7 Seconds (26.0-36.0) H 08/16/18 06:05 Fibrinogen 102 mg/dL (169-393) L 08/17/18 07:22 ABG pCO2 46 mmHg (35-45) H 08/18/18 05:58 ABG pO2 284 mmHg (85-104) H 08/18/18 05:58 ABG Total CO2 28 mEq/L (20-26) H 08/18/18 05:58 ABG O2 Saturation 100 % (95-98) H 08/18/18 05:58 VBG pH 7.25 pH Units (7.32-7.42) L 08/15/18 17:08 VBG pO2 90 mmHg (25-50) H 08/15/18 17:08 VBG HCO3 20 mEq/L (21-27) L 08/15/18 17:08 Sodium 128 mEq/L (136-145) L 08/18/18 03:55 Potassium 3.2 mEq/L (3.5-5.1) L 08/18/18 03:55 Chloride 94 mEq/L (98-107) L 08/18/18 03:55 BUN 49 mg/dL (8-23) H 08/18/18 03:55 Creatinine 1.36 mg/dL (0.60-1.20) H 08/18/18 03:55 Est GFR ( Amer) 47 (> 60) L 08/18/18 03:55 Est GFR (Non-Af Amer) 38 (> 60) L 08/18/18 03:55 BUN/Creatinine Ratio 36 (6-26) H 08/18/18 03:55 Glucose 158 mg/dL (70-105) H 08/18/18 03:55 POC Glucose 173 mg/dL (70-99) H 08/18/18 07:31 Calcium 7.0 mg/dL (8.6-10.3) L 08/18/18 03:55 Magnesium 1.2 mg/dL (1.6-2.6) L 08/18/18 03:55 Total Bilirubin 1.5 mg/dL (0.3-1.0) H 08/17/18 03:25 Direct Bilirubin 0.8 mg/dL (0.0-0.2) H 08/17/18 03:25 AST 1808 Units/L (13-39) H 08/17/18 03:25 ALT > 500 Units/L (7-52) H 08/17/18 03:25 Alkaline Phosphatase 116 Units/L (34-104) H 08/17/18 03:25 Creatine Kinase 533 Units/L (30-223) H 08/16/18 08:10 Troponin I 0.17 ng/mL (< 0.04) H* 08/16/18 03:45 B-Natriuretic Peptide 4439 pg/mL (Less than 100) H 08/15/18 16:58 Serum Total Protein 4.6 g/dL (6.4-8.9) L 08/17/18 03:25 Albumin 2.2 g/dL (3.5-5.7) L 08/17/18 03:25 Albumin/Globulin Ratio 0.9 (1.1-2.2) L 08/17/18 03:25 TSH 6.068 mcIU/mL (0.340-5.600) H 08/15/18 16:58 Free T3 1.61 pg/mL (2.50-3.90) L 08/15/18 16:58 Urine Clarity Cloudy (Clear) A 08/15/18 19:05 Urine Protein 30 mg/dL (Neg-Trace) H 08/15/18 19:05 Urine Blood Moderate (Negative) H 08/15/18 19:05 Urine Bilirubin Small (Negative) H 08/15/18 19:05 General appearance: Present: no acute distress - Respiratory Respiratory exam: Present: decreased breath sounds Additional comments: Short periods of apnea noted - Cardiovascular Cardiovascular exam: Present: tachycardia - GI/Abdominal GI/Abdominal exam: Present: diminished bowel sounds, soft - Extremities Exam Additional comments: mottling and coolness to bilateral lower extremities - Neurological Exam Additional comments: Unresponsive to verbal and tactile stimuli - Skin Skin exam: Present: dry, pallor Palliative Quality Palliative Quality: Screen for Code Status: Yes, Screen for Goals of Care: Yes, Screen for Pain: Yes, If Pain Regimen Started, Initiate Bowel Regimen: Yes, Screen for Nausea/Vomitting: NA Code Status: 08/18/18 08:53 CODE [Resuscitation Status: Active] [RES] Routine Comment: Resuscitation Status: DNR-Comfort Care-Arrest 08/18/18 11:08 DNR [Resuscitation Status: Active] [RES] Routine Comment: Resuscitation Status: DNR-Comfort Care - Labs CBC & Chem 7: 08/18/18 04:00 08/18/18 03:55 - ABG Interpretation ABG results: ABG ABG pH 7.38 pH Units (7.32-7.45) 08/18/18 05:58 ABG pCO2 46 mmHg (35-45) H 08/18/18 05:58 ABG pO2 284 mmHg (85-104) H 08/18/18 05:58 ABG O2 Saturation 100 % (95-98) H 08/18/18 05:58 PT/INR, D-dimer PT 31.5 Seconds (9.4-12.1) H 08/17/18 03:25 Consult Discharge Plan - Plan Referrals: Tate Franks MD [Primary Care Provider] -
[2018-08-19] MEDS: Dexmedetomidine HCl 400 MCG/100 ML MLS IVC SCH (09:40)
[2018-08-19] MEDS: Chlorhexidine Rinse 15 ML MOUTHWASH MM SCH (09:45)
[2018-08-19] MEDS: Pantoprazole 40 MG VIAL IVP SCH (09:45)
[2018-08-19] MEDS: Nystatin POWDER 30 GM BOTTLE TP SCH ×2 (09:45→21:27)
[2018-08-19] MEDS ORDERED: Potassium Chloride 40 MEQ, Lidocaine 1% 2 ML in D5% in Water 500 ML IVPB ONE (10:06)
--- NOTE | 2018-08-19 10:38 | Internal Med Progress Note ---
<Rohith Zamorano - Last Filed: 08/19/18 16:00> Hospitalist Progress Note - Encounter Date of Encounter: 08/19/18 - Exam Vitals: Temp Pulse Resp BP Pulse Ox 97.6 F 125 9 56/42 98 08/19/18 15:41 08/19/18 15:41 08/19/18 15:41 08/19/18 15:41 08/19/18 15:41 - Assessment and Plan (1) COPD (chronic obstructive pulmonary disease) Current Visit: Yes Status: Chronic (2) HTN (hypertension) Current Visit: No Status: Chronic (3) DVT prophylaxis Current Visit: Yes Status: Acute (4) CHF (congestive heart failure) Current Visit: No Status: Chronic (5) Septic shock Current Visit: Yes Status: Acute (6) Acute on chronic respiratory failure with hypoxia and hypercapnia Current Visit: Yes Status: Acute (7) Severe protein-calorie malnutrition Current Visit: Yes Status: Chronic (8) Acute encephalopathy Current Visit: Yes Status: Acute (9) CECI (acute kidney injury) Current Visit: Yes Status: Acute (10) Community acquired pneumonia Current Visit: Yes Status: Acute (11) Multiorgan failure Current Visit: Yes Status: Acute (12) Supratherapeutic INR Current Visit: Yes Status: Acute - Time Spent with Patient Total time spent is greater than 50% in coordination of care (as documented) at patient's floor/unit and/or counseling patient: Internal Medicine: Result - Labs CBC & Chem 7: 08/18/18 04:00 08/18/18 03:55 - ABG Interpretation ABG results: ABG ABG pH 7.38 pH Units (7.32-7.45) 08/18/18 05:58 ABG pCO2 46 mmHg (35-45) H 08/18/18 05:58 ABG pO2 284 mmHg (85-104) H 08/18/18 05:58 ABG O2 Saturation 100 % (95-98) H 08/18/18 05:58 PT/INR, D-dimer PT 31.5 Seconds (9.4-12.1) H 08/17/18 03:25 Consult Discharge Plan - Plan Referrals: Tate Franks MD [Primary Care Provider] - - Attending Attestation I performed an independent interview and examinm of this patient. I agree with the findings, assessment, and plan of Dr. Rubio, internal medicine international tax manager. Patient is 100% Comfort Care only. Family is currently satisfied with her care. I answered all questions as best I could. Appreciate palliative care input and management. Exam: No acute distress, sedated Lungs diminished breath sounds Ht RRR Abd Soft Ext +edema <Ashley Rubio - Last Filed: 08/19/18 17:28> Hospitalist Progress Note - Encounter Date of Encounter: 08/19/18 Time of Encounter: 10:15 - Subjective Interval History: Patient seen and examined. No acute events overnight. Patient appears to be sleeping comfortably in bed with family at bedside. Family reports draining from left leg. Left leg is well-dressed and shows serosanguinous drainage. Family reports increased swelling in arms. Family indicates that toes are cold and darkened today. States that patient opened her eyes last night but hasnt aroused since. - Exam Vitals: Temp Pulse Resp BP Pulse Ox 97.4 F L 125 9 73/53 96 08/19/18 06:50 08/19/18 06:50 08/19/18 07:44 08/19/18 06:50 08/19/18 07:44 Exam: General: Non-arousable. No acute distress. Cachetic. Head: atraumatic, normocephalic. Neck: normal inspection Lungs: CTAB. No rhonchi, rales, wheezes. Regular breathing with short apnea between each breath. Cardiovascular: Normal S1 & S2. No rubs or gallops. No JVD. Pulse regular. Tachycardic. Abdomen: Soft. Normal bowel sounds. Nondistended, no rigidity. Extremities: Upper extremity swelling with weeping fluid. Lower extremity swelling with mottling. BLE cool to touch. Moves toes with palpation. Neurological: Unresponsive - Assessment and Plan (1) Septic shock Current Visit: Yes Status: Acute Assessment and Plan: Patient met septic shock criteria with hypothermia temperature 90.6 F, heart rate 113, RR 26, blood pressure 79/54 Patient was given sepsis IV fluid bolus. Patient started on empiric antibiotics: Vancomycin, Merrem, Azithromycin, Flagyl Likely source of infection includes pneumonia versus mesenteric ischemia CT of the abdomen and pelvis revealed Interval development mesenteric edema, anasarca and small amount of free pelvic fluid. Blood cultures are negative. Code status changed to DNR-CC. Compassionate extubation and transfer from ICU to floor yesterday. All antiobiotics discontinued. Only comfort care medications are continued, per Palliative. Will not continue labs. (2) Multiorgan failure Current Visit: Yes Status: Acute Assessment and Plan: Acute respiratory failure, severe COPD, hypotension, acute kidney injury, hypoperfusion, mottled appearance CT of the abdomen and pelvis revealed Interval development mesenteric edema, anasarca and small amount of free pelvic fluid. Patient evaluated by general surgeon for concern of ischemic bowel, not an operative candidate Code status changed to DNR-CC. Compassionate extubation and transferred to floor from ICU yesterday. Only comfort care medications are continued, per Palliative. (3) Acute on chronic respiratory failure with hypoxia and hypercapnia Current Visit: Yes Status: Acute Assessment and Plan: Patient with acute respiratory distress on exam despite 15 L nonrebreather mask , hypoxia, hypercapnia Patient wears between 2.5-3.5 L continuous home oxygen Patient endotracheally intubated. Compassionate extubation and transferred to floor from ICU yesterday. Only comfort care medications are continued, per Palliative. (4) Community acquired pneumonia Current Visit: Yes Status: Acute Assessment and Plan: CT chest revealed near complete collapse of the right middle lobe and partial collapse of the dependent right lower lobe potentially with superimposed pneumonia or aspiration. Secretions in the trachea and possibly within bronchi of the right middle and right lower lobes, and associated mild to moderate bronchial wall thickening in the right lower lobe. The findings may be related to bronchitis or aspiration. Small to moderate right and trace left pleural effusions. Severe centrilobular emphysema. Patient started on empiric antibiotics: Vancomycin, Merrem, Azithromycin, Flagyl (Day 1) Likely source of infection includes pneumonia versus mesenteric ischemia Blood cultures are negative. Code status changed to DNR-CC. All antiobiotics discontinued. (5) CECI (acute kidney injury) Current Visit: Yes Status: Acute Assessment and Plan: Patient developed acute kidney injury in the setting of septic shock, renal hypoperfusion, dehydration (6) Acute encephalopathy Current Visit: Yes Status: Acute Assessment and Plan: Patient presented with acute altered mental status. CT brain revealed new subacute to less likely chronic appearing infarction in the left parietal lobe near the occipital lobe. Increased mild cerebral atrophy with minimal chronic small vessel ischemic changes. (7) COPD (chronic obstructive pulmonary disease) Current Visit: Yes Status: Chronic Assessment and Plan: CT chest revealed near complete collapse of the right middle lobe and partial collapse of the dependent right lower lobe potentially with superimposed pneumonia or aspiration. Secretions in the trachea and possibly within bronchi of the right middle and right lower lobes, and associated mild to moderate bronchial wall thickening in the right lower lobe. The findings may be related to bronchitis or aspiration. Small to moderate right and trace left pleural effusions. Severe centrilobular emphysema. 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 Venous duplex of bilateral LE was normal. No signs of active bleeding - Time Spent with Patient Total time spent is greater than 50% in coordination of care (as documented) at patient's floor/unit and/or counseling patient: Internal Medicine: Result - Labs CBC & Chem 7: 08/18/18 04:00 08/18/18 03:55 - ABG Interpretation ABG results: ABG ABG pH 7.38 pH Units (7.32-7.45) 08/18/18 05:58 ABG pCO2 46 mmHg (35-45) H 08/18/18 05:58 ABG pO2 284 mmHg (85-104) H 08/18/18 05:58 ABG O2 Saturation 100 % (95-98) H 08/18/18 05:58 PT/INR, D-dimer PT 31.5 Seconds (9.4-12.1) H 08/17/18 03:25 - VTE Documentation of Mechanical Device: Intermittent pneumatic compression device <Rohith Zamorano - Last Filed: 08/19/18 16:00> (1) COPD (chronic obstructive pulmonary disease) Qualifiers: COPD type: chronic bronchitis Chronic bronchitis type: unspecified Qualified Code(s): J42 - Unspecified chronic bronchitis (2) HTN (hypertension) Qualifiers: Hypertension type: essential hypertension Qualified Code(s): I10 - Essential (primary) hypertension (4) CHF (congestive heart failure) Qualifiers: Heart failure type: diastolic Heart failure chronicity: chronic Qualified Code(s): I50.32 - Chronic diastolic (congestive) heart failure (10) Community acquired pneumonia Qualifiers: Laterality: unspecified laterality Qualified Code(s): J18.9 - Pneumonia, unspecified organism <Ashley Rubio - Last Filed: 08/19/18 17:28> (4) Community acquired pneumonia Qualifiers: Laterality: unspecified laterality Qualified Code(s): J18.9 - Pneumonia, unspecified organism (7) COPD (chronic obstructive pulmonary disease) Qualifiers: COPD type: chronic bronchitis Chronic bronchitis type: unspecified Qualified Code(s): J42 - Unspecified chronic bronchitis (8) CHF (congestive heart failure) Qualifiers: Heart failure type: diastolic Heart failure chronicity: chronic Qualified Code(s): I50.32 - Chronic diastolic (congestive) heart failure (9) HTN (hypertension) Qualifiers: Hypertension type: essential hypertension Qualified Code(s): I10 - Essential (primary) hypertension
[2018-08-19] MEDS ORDERED: Ipratropium/Albuterol Neb 3 ML IH PRN (13:05)
[2018-08-19] MEDS ORDERED: Scopolamine Patch 1.5 MG PATCH.TD72 TD PRN (13:12)
--- NOTE | 2018-08-19 13:20 | Event Note ---
Date of Encounter: 08/19/18 Time of Encounter: 13:00 Met with family regarding current clinical status and further blood draws/iv antibiotic therapy. Family in agreement to discontinue these at this time. Will d/c meds not related to comfort. Will decrease Hydrocortisone as well. Her blood pressure is declining further, anticipate she will pass within next 24 hours. If she is stable tomorrow, will plan transition to inpatient hospice.
[2018-08-19] MEDS: FentaNYL (PF) 2,500 MCG in EMPTY BAG 1 EACH IVC SCH (17:43)
[2018-08-19] MEDS ORDERED: Aminoglycoside Consult 1 EACH MC ONE (17:44)
[2018-08-19] MEDS: *HR* LORazepam 2 MG/ML VIAL IVP PRN (18:10)
[2018-08-20] MEDS: Artificial Tears SOLN 15 ML BOTTLE BOTH EYES SCH ×3 (01:55→08:38)
[2018-08-20] MEDS: Hydrocortisone Sodium Succ 100 MG/2 ML VIAL IVP SCH (05:56)
[2018-08-20] MEDS: FentaNYL (PF) 2,500 MCG in EMPTY BAG 1 EACH IVC SCH (06:26)
[2018-08-20] MEDS: Ipratropium/Albuterol Neb 3 ML IH SCH (07:37)
[2018-08-20] MEDS: Budesonide Neb 0.5 MG/2 ML IH SCH (07:37)
[2018-08-20] MEDS: Meropenem 500 MG in Water for inj. (sterile) 20 ML 5 ML IVP SCH (07:59)
[2018-08-20] MEDS: Nystatin POWDER 30 GM BOTTLE TP SCH (08:51)
--- NOTE | 2018-08-20 10:14 | Palliative Progress Note ---
Date of Encounter: 08/20/18 Time of Encounter: 09:30 - Assessment and plan (1) Dyspnea Current Visit: Yes Status: Acute Assessment and plan: Continue Fentanyl infusion with boluses PRN. Has not required any additional medication over last 24 hours. Continues with oxygen - I did discuss with family this may be prolonging her dying process and if not providing comfort at this point, we could discontinue. Daughter states she would discuss with family. Qualifiers: Dyspnea type: unspecified Qualified Code(s): R06.00 - Dyspnea, unspecified (2) Generalized pain Current Visit: Yes Status: Acute Assessment and plan: Continue Fentanyl at current rate. (3) Anxiety Current Visit: Yes Status: Acute Assessment and plan: Has Lorazepam available PRN - has only required x1 last 24 hours. (4) Goals of care, counseling/discussion Current Visit: Yes Status: Acute Assessment and plan: Continue comfort care, she is actively dying. I do not think that it makes sense at this point to transition to inpatient hospice, as this would require discharge, readmission, and enrollment process from hospice team. She is very close to passing, and this process may not be completed before her . (5) CECI (acute kidney injury) Current Visit: Yes Status: Acute (6) Acute on chronic respiratory failure with hypoxia and hypercapnia Current Visit: Yes Status: Acute (7) Septic shock Current Visit: Yes Status: Acute - Time Spent With Patient Total time spent is greater than 50% in coordination of care (as documented) at patient's floor/unit and/or counseling patient: 25 - 35 minutes - Subjective Interval history: Patient unresponsive with agonal irreg respirations. B/P 40's/20's. Family at bedside. She appears comfortable and they are pleased with her care. - Constitutional Vitals: Abnormal lab results WBC 30.9 K/mcL (4.3-11.1) H* 08/18/18 04:00 RDW 16.9 % (11.5-14.5) H 08/18/18 04:00 Plt Count 80 K/mcL (140-400) L 08/18/18 04:00 Neutrophils # 29.4 K/mcL (1.6-8.9) H 08/18/18 04:00 Lymphocytes # 0.3 K/mcL (0.6-4.6) L 08/18/18 04:00 Nucleated RBCs/100 WBC 0.1 /100 WBC (0) H 08/17/18 16:00 Platelet Estimate Decreased (Normal) L 08/18/18 04:00 PT 31.5 Seconds (9.4-12.1) H 08/17/18 03:25 APTT 51.7 Seconds (26.0-36.0) H 08/16/18 06:05 Fibrinogen 102 mg/dL (169-393) L 08/17/18 07:22 ABG pCO2 46 mmHg (35-45) H 08/18/18 05:58 ABG pO2 284 mmHg (85-104) H 08/18/18 05:58 ABG Total CO2 28 mEq/L (20-26) H 08/18/18 05:58 ABG O2 Saturation 100 % (95-98) H 08/18/18 05:58 VBG pH 7.25 pH Units (7.32-7.42) L 08/15/18 17:08 VBG pO2 90 mmHg (25-50) H 08/15/18 17:08 VBG HCO3 20 mEq/L (21-27) L 08/15/18 17:08 Sodium 128 mEq/L (136-145) L 08/18/18 03:55 Potassium 3.2 mEq/L (3.5-5.1) L 08/18/18 03:55 Chloride 94 mEq/L (98-107) L 08/18/18 03:55 BUN 49 mg/dL (8-23) H 08/18/18 03:55 Creatinine 1.36 mg/dL (0.60-1.20) H 08/18/18 03:55 Est GFR ( Amer) 47 (> 60) L 08/18/18 03:55 Est GFR (Non-Af Amer) 38 (> 60) L 08/18/18 03:55 BUN/Creatinine Ratio 36 (6-26) H 08/18/18 03:55 Glucose 158 mg/dL (70-105) H 08/18/18 03:55 POC Glucose 173 mg/dL (70-99) H 08/18/18 07:31 Calcium 7.0 mg/dL (8.6-10.3) L 08/18/18 03:55 Magnesium 1.2 mg/dL (1.6-2.6) L 08/18/18 03:55 Total Bilirubin 1.5 mg/dL (0.3-1.0) H 08/17/18 03:25 Direct Bilirubin 0.8 mg/dL (0.0-0.2) H 08/17/18 03:25 AST 1808 Units/L (13-39) H 08/17/18 03:25 ALT > 500 Units/L (7-52) H 08/17/18 03:25 Alkaline Phosphatase 116 Units/L (34-104) H 08/17/18 03:25 Creatine Kinase 533 Units/L (30-223) H 08/16/18 08:10 Troponin I 0.17 ng/mL (< 0.04) H* 08/16/18 03:45 B-Natriuretic Peptide 4439 pg/mL (Less than 100) H 08/15/18 16:58 Serum Total Protein 4.6 g/dL (6.4-8.9) L 08/17/18 03:25 Albumin 2.2 g/dL (3.5-5.7) L 08/17/18 03:25 Albumin/Globulin Ratio 0.9 (1.1-2.2) L 08/17/18 03:25 Procalcitonin 1.04 ng/mL (<=0.07) H 08/17/18 03:25 TSH 6.068 mcIU/mL (0.340-5.600) H 08/15/18 16:58 Free T3 1.61 pg/mL (2.50-3.90) L 08/15/18 16:58 Urine Clarity Cloudy (Clear) A 08/15/18 19:05 Urine Protein 30 mg/dL (Neg-Trace) H 08/15/18 19:05 Urine Blood Moderate (Negative) H 08/15/18 19:05 Urine Bilirubin Small (Negative) H 08/15/18 19:05 General appearance: Present: no acute distress - Respiratory Respiratory exam: Present: decreased breath sounds Additional comments: Resp irreg and shallow. Crackles noted Rt lung russell. - Cardiovascular Cardiovascular exam: Present: tachycardia - GI/Abdominal GI/Abdominal exam: Present: diminished bowel sounds, soft - Additional comments: Scant amount dk vincent urine - Extremities Exam Additional comments: 2-3+ pedal edema noted with weeping. Bilateral lower legs dusky and cool to touch - Neurological Exam Additional comments: Unresponsive to verbal/tactile stimuli - Skin Skin exam: Present: dry, pallor Palliative Quality Palliative Quality: Screen for Code Status: Yes, Screen for Goals of Care: Yes, Screen for Pain: Yes, If Pain Regimen Started, Initiate Bowel Regimen: Yes, Screen for Nausea/Vomitting: NA Code Status: 08/18/18 08:53 CODE [Resuscitation Status: Active] [RES] Routine Comment: Resuscitation Status: DNR-Comfort Care-Arrest 08/18/18 11:08 DNR [Resuscitation Status: Active] [RES] Routine Comment: Resuscitation Status: DNR-Comfort Care - Labs CBC & Chem 7: 08/18/18 04:00 08/18/18 03:55 Labs: Laboratory Results - last 24 hr 08/17/18 03:25 Procalcitonin 1.04 H - ABG Interpretation ABG results: ABG ABG pH 7.38 pH Units (7.32-7.45) 08/18/18 05:58 ABG pCO2 46 mmHg (35-45) H 08/18/18 05:58 ABG pO2 284 mmHg (85-104) H 08/18/18 05:58 ABG O2 Saturation 100 % (95-98) H 08/18/18 05:58 PT/INR, D-dimer PT 31.5 Seconds (9.4-12.1) H 08/17/18 03:25 Consult Discharge Plan - Plan Referrals: Tate Franks MD [Primary Care Provider] -
--- NOTE | 2018-08-20 11:19 | Internal Med Progress Note ---
Hospitalist Progress Note - Encounter Date of Encounter: 08/20/18 Time of Encounter: 09:30 - Subjective Interval History: Patient is resting comfortably. Family is at bedside. They have no questions at this time. Palliative care input is appreciated. Patient is not responsive and unable to provide any review of systems - Exam Vitals: Temp Pulse Resp BP Pulse Ox 98.7 F 120 18 45/37 100 08/20/18 07:30 08/20/18 07:30 08/20/18 07:30 08/20/18 07:30 08/20/18 11:09 Exam: General: Non-arousable. No acute distress. Cachetic. Head: atraumatic, normocephalic. Neck: normal inspection Lungs: CTAB. No rhonchi, rales, wheezes. Regular breathing with short apnea between each breath. Cardiovascular: Normal S1 & S2. No rubs or gallops. No JVD. Pulse regular. Tachycardic. Abdomen: Soft. Normal bowel sounds. Nondistended, no rigidity. Extremities: Upper extremity swelling with weeping fluid. Lower extremity swelling with mottling. BLE cool to touch. Moves toes with palpation. Neurological: Unresponsive - Assessment and Plan (1) COPD (chronic obstructive pulmonary disease) Current Visit: Yes Status: Chronic Assessment and Plan: CT chest revealed near complete collapse of the right middle lobe and partial collapse of the dependent right lower lobe potentially with superimposed pneumonia or aspiration. Secretions in the trachea and possibly within bronchi of the right middle and right lower lobes, and associated mild to moderate bronchial wall thickening in the right lower lobe. The findings may be related to bronchitis or aspiration. Small to moderate right and trace left pleural effusions. Severe centrilobular emphysema. (2) HTN (hypertension) Current Visit: No Status: Chronic Assessment and Plan: Home antihypertensive meds were held in setting of septic shock (3) CHF (congestive heart failure) Current Visit: No Status: Chronic Assessment and Plan: Stat echo revealed large right ventricle, flat septum, hypertension dynamic left ventricle, 70% EF, pleural effusion Last echo 08/06/16 showed EF 60% (4) Septic shock Current Visit: Yes Status: Acute Assessment and Plan: Patient met septic shock criteria with hypothermia temperature 90.6 F, heart rate 113, RR 26, blood pressure 79/54 Patient was given sepsis IV fluid bolus. Patient started on empiric antibiotics: Vancomycin, Merrem, Azithromycin, Flagyl Likely source of infection includes pneumonia versus mesenteric ischemia CT of the abdomen and pelvis revealed Interval development mesenteric edema, anasarca and small amount of free pelvic fluid. Blood cultures are negative. Code status changed to DNR-CC. Compassionate extubation and transfer from ICU to floor yesterday. All antiobiotics discontinued. Only comfort care medications are continued, per Palliative. Will not continue labs. (5) Acute on chronic respiratory failure with hypoxia and hypercapnia Current Visit: Yes Status: Acute Assessment and Plan: Patient with acute respiratory distress on exam despite 15 L nonrebreather mask , hypoxia, hypercapnia Patient wears between 2.5-3.5 L continuous home oxygen Patient endotracheally intubated. Compassionate extubation and transferred to floor from ICU yesterday. Only comfort care medications are continued, per Palliative. (6) Severe protein-calorie malnutrition Current Visit: Yes Status: Chronic (7) Acute encephalopathy Current Visit: Yes Status: Acute (8) CECI (acute kidney injury) Current Visit: Yes Status: Acute (9) Community acquired pneumonia Current Visit: Yes Status: Acute (10) Multiorgan failure Current Visit: Yes Status: Acute (11) Supratherapeutic INR Current Visit: Yes Status: Acute - Time Spent with Patient Total time spent is greater than 50% in coordination of care (as documented) at patient's floor/unit and/or counseling patient: Internal Medicine: Result - Labs CBC & Chem 7: 08/18/18 04:00 08/18/18 03:55 - ABG Interpretation ABG results: ABG ABG pH 7.38 pH Units (7.32-7.45) 08/18/18 05:58 ABG pCO2 46 mmHg (35-45) H 08/18/18 05:58 ABG pO2 284 mmHg (85-104) H 08/18/18 05:58 ABG O2 Saturation 100 % (95-98) H 08/18/18 05:58 PT/INR, D-dimer PT 31.5 Seconds (9.4-12.1) H 08/17/18 03:25 - VTE Documentation of Mechanical Device: Intermittent pneumatic compression device Consult Discharge Plan - Plan Referrals: Tate Franks MD [Primary Care Provider] - (1) COPD (chronic obstructive pulmonary disease) Qualifiers: COPD type: chronic bronchitis Chronic bronchitis type: unspecified Qualified Code(s): J42 - Unspecified chronic bronchitis (2) HTN (hypertension) Qualifiers: Hypertension type: essential hypertension Qualified Code(s): I10 - Essential (primary) hypertension (3) CHF (congestive heart failure) Qualifiers: Heart failure type: diastolic Heart failure chronicity: chronic Qualified Code(s): I50.32 - Chronic diastolic (congestive) heart failure (9) Community acquired pneumonia Qualifiers: Laterality: unspecified laterality Qualified Code(s): J18.9 - Pneumonia, unspecified organism
[2018-08-20 12:01] VITALS: BP 37/31
--- NOTE | 2018-08-23 16:48 | Discharge Summary ---
Date of Encounter: 08/20/18 Time of Encounter: 15:00 - Discharge Diagnosis (1) COPD (chronic obstructive pulmonary disease) Priority: Secondary Status: Chronic Qualifiers: COPD type: chronic bronchitis Chronic bronchitis type: unspecified Qualified Code(s): J42 - Unspecified chronic bronchitis (2) HTN (hypertension) Priority: Secondary Status: Chronic Qualifiers: Hypertension type: essential hypertension Qualified Code(s): I10 - Essential (primary) hypertension (3) CHF (congestive heart failure) Priority: Secondary Status: Chronic Qualifiers: Heart failure type: diastolic Heart failure chronicity: chronic Qualified Code(s): I50.32 - Chronic diastolic (congestive) heart failure (4) Septic shock Priority: Primary Status: Acute (5) Acute on chronic respiratory failure with hypoxia and hypercapnia Priority: Secondary Status: Acute (6) Severe protein-calorie malnutrition Priority: Secondary Status: Chronic (7) Acute encephalopathy Priority: Secondary Status: Acute (8) CECI (acute kidney injury) Priority: Secondary Status: Acute (9) Community acquired pneumonia Priority: Primary Status: Acute Qualifiers: Laterality: unspecified laterality Qualified Code(s): J18.9 - Pneumonia, unspecified organism (10) Multiorgan failure Priority: Primary Status: Acute (11) Supratherapeutic INR Priority: Secondary Status: Acute Hospital course: Ms. Bautista is a 68 year old bed-ridden female with severe COPD on continuous 2.5L home O2, mucous plugging in lungs, HFpEF, CAD, GERD, and previous IVF filter who presented to the ED from home via EMS due to blood glucose level 15 and AMS. Family is at bedside and reports patient has not been eating for a few days, complaining of chills, anorexia, nausea, and abdominal pain for the past 2 days. She was alert and oriented yesterday evening but today it was confused. Patient's family reports she has been bed-bound for about 3 years due to history of colitis and left hip pain causing inability to walk. Patient's ex- reports she has not been urinating as much for a few days, is lethargic , and has increased swelling in her right arm, likely from preferring to lay on her right side. Patient did not report fever, CP, SOB, increased home oxygen requirements, aspiration, vomiting, diarrhea, melena, history of diabetes, or history of cellulitis. Case discussed in detail with patient's ex- who is her primary daycare assistant, both daughters, and grandsons. Family reports the patient's wishes were to be a full code, but she requested not to be on life support for a prolonged period of time. 08/20: Pt admitted for CAP with associated septic shock (present on admisison) . Initially treated in ICU with intubation and broad spectrum abx. Pt did not do well and ultimately decision was made to proceed with comfort care measure only. Pt passed peacefully on 08/20/2018 at 1446 pm. Family present at bedside. - Time Spent with Patient Total time spent providing and/or coordinating discharge services: - Discharge Medications Home Medications: Albuterol Sulfate [Proair Hfa] 2 puff IH Q4HR PRN 03/26/18 [History] Beclomethasone Diprop 80mcg [QVAR 80 mcg] 2 puff IH BID 03/26/18 [History] Docusate [Colace] 200 mg PO BID 03/26/18 [History] FentaNYL PATCH [Duragesic] 75 mcg TD Q72H 03/26/18 [History] Guaifenesin [Mucinex] 600 mg PO BID PRN 03/26/18 [History] Ipratropium/Albuterol Neb [Duoneb] 3 ml IH Q4HR 03/26/18 [History] Omeprazole [PriLOSEC] 40 mg PO DAILY 03/26/18 [History] Ondansetron HCl [Zofran] 4 mg PO TID PRN 03/26/18 [History] Dicyclomine [Bentyl] 20 mg PO TID 03/27/18 [History] diazePAM [Valium] 2 mg PO DAILY PRN 03/27/18 [History] Metoprolol [Lopressor] 25 mg PO BID #30 tablet 03/29/18 [Rx] Acetaminophen [Tylenol] 500 mg PO Q6HR PRN 08/15/18 [History] Albuterol Neb [Proventil Neb] 2.5 mg IH Q4HR 08/15/18 [History] Carvedilol [Coreg] 3.125 mg PO BID 08/15/18 [History] Nystatin POWDER [Nystop] 1 appl TP BID 08/15/18 [History] Omeprazole [PriLOSEC] 40 mg PO DAILY 08/15/18 [History] Triamcinolone Acetonide 15 gm TP BID 08/15/18 [History] Allergies/Adverse Reactions: 3 Allergy/AdvReac Type Severity Reaction Status Date / Time aspirin Allergy Hives Verified 09/25/17 11:53 cefpodoxime [From Vantin] Allergy Hives Verified 09/25/17 11:53 Cephalosporins Allergy Hives Verified 09/25/17 11:53 ciprofloxacin [From Cipro] Allergy Hives Verified 09/25/17 11:53 diltiazem [From Cardizem] Allergy Hives Verified 09/25/17 12:21 hydrocodone Allergy Hives Verified 09/25/17 11:53 moxifloxacin Allergy Hives Verified 09/25/17 11:53 propoxyphene Allergy Hives Verified 09/25/17 11:53 sodium bicarbonate Allergy Hives Verified 09/25/17 11:53 Sulfa (Sulfonamide Allergy Hives Verified 09/25/17 11:53 Antibiotics) tramadol Allergy Hives Verified 09/25/17 11:53 beta-lactam Allergy Hives Uncoded 09/25/17 11:53 cetpodoxime Allergy Hives Uncoded 09/25/17 11:53 iv dye Allergy See Uncoded 09/25/17 12:20 Comments multivitamins Allergy Hives Uncoded 09/25/17 11:53 Date of admission: 08/15/18 21:18 Primary care physician: Tate Franks MD Consults: 08/15/18 23:19 Consult to Critical Care [CONS] Routine Consulting Provider: [facility] [place] Reason for Consult: Ventilator management, septic shock, COPD Call Completed: Yes 08/17/18 09:52 Consult to Palliative Care [CONS] Routine Comment: Consulting Provider: [facility] [place] Reason for Consult: Septic shock with MODS on pressors. She is full code currently. Discussed code status with family Sat without clear answer. Possibly extubate today and would like assistance finalizing goals of care and code status in her complicated critical status. Time Notified: 09:56 Call Completed: No Discharging clinician: Rohith Zamorano Anticipated date of discharge: 08/20/18 - Constitutional Vitals: Temp Pulse Resp BP Pulse Ox 97.5 F L 111 20 37/31 100 08/20/18 12:00 08/20/18 12:00 08/20/18 12:00 08/20/18 12:00 08/20/18 12:00 General appearance: Present: cachectic Exam: General: Non-arousable. No acute distress. Cachetic. Head: atraumatic, normocephalic. Neck: normal inspection Lungs: CTAB. No rhonchi, rales, wheezes. Regular breathing with short apnea between each breath. Cardiovascular: Normal S1 & S2. No rubs or gallops. No JVD. Pulse regular. Tachycardic. Abdomen: Soft. Normal bowel sounds. Nondistended, no rigidity. Extremities: Upper extremity swelling with weeping fluid. Lower extremity swelling with mottling. BLE cool to touch. Moves toes with palpation. Neurological: Unresponsive - Patient Status Disposition: Condition: Critical - Discharge Instructions Follow Up With: Tate Franks MD [Primary Care Provider] - - VTE Documentation of Mechanical Device: Intermittent pneumatic compression device
== END 2018-08-20 17:45 | disposition expired | DRG 871 ==
LOC: EMEROOARM 16:00 → ICNU 21:18 → 2ANU 08-18 15:42
PROVIDERS: ADMIT Family Medicine; ATTEND Family Medicine